=== PATIENT | male | born 1950 | race American Indian/Alaskan Native ===

== ENCOUNTER 2020-09-06 08:29 | Emergency (ER) | payer OTHER, MEDICARE ==
[2020-09-06 08:39] VITALS: BP 149/79
--- NOTE | 2020-09-06 08:48 | Emergency Department Report ---
<STEPHANIE SRIVASTAVA - Last Filed: 09/06/20 08:44> ED Extremity Problem HPI - General Chief complaint: Extremity Injury, Lower Stated complaint: LEFT FOOT INFECTION Source: patient Mode of arrival: Ambulatory Limitations: No Limitations - History of Present Illness Initial comments: 70-year-old -Gabonese male presents to the emergency room for 6-month history of left foot pain that started about 2 weeks ago when it has gotten worse. Patient states that the pain is worse when he lays on his stomach and his anterior front of his feet are pressed into the bed. Patient states what makes it better if he sits up with his feet flat. Patient is concerned that his nails on his toes are getting thick and aren't growing. Patient reports he does have a primary care provider but is now in [place] and [place]. Patient denies any recent trauma. Patient reports no history of diabetes but does have high blood pressure. Patient reports has been taken ibuprofen 600 mg about 3 times a day. Onset/Timin -: month(s) Location: left, lower extremity (foot) History of Same: No -: Yes arthralgia Severity scale (0 -10): 8 Quality: sharp Consistency: intermittent Improves with: nothing Worsens with: other (lying on his stomach) Associated Symptoms: denies other symptoms - Related Data Allergies Allergy/AdvReac Type Severity Reaction Status Date / Time No Known Allergies Allergy Unverified 09/06/20 08:36 ED Review of Systems Comment: All other systems reviewed and negative ED Past Medical Hx - Past Medical History Hx Hypertension: Yes - Surgical History Past Surgical History?: No - Social History Smoking Status: Never Smoker Substance Use Type: None ED Physical Exam - General Limitations: No Limitations General appearance: alert, in no apparent distress - Head Head exam: Present: atraumatic, normocephalic - Eye Eye exam: Present: normal appearance - ENT ENT exam: Present: mucous membranes moist - Neck Neck exam: Present: full ROM - Respiratory Respiratory exam: Absent: accessory muscle use - Cardiovascular Cardiovascular Exam: Present: regular rate, normal rhythm. Absent: systolic murmur, diastolic murmur, rubs, gallop - Neurological Exam Neurological exam: Present: alert, oriented X3 ED Medical Decision Making - Medical Decision Making 70-year-old -Gabonese male presents to the emergency room for 6-month history of left foot pain that started about 2 weeks ago when it has gotten worse. Patient states that the pain is worse when he lays on his stomach and his anterior front of his feet are pressed into the bed. Patient states what makes it better if he sits up with his feet flat. Patient is concerned that his nails on his toes are getting thick and aren't growing. Patient reports he does have a primary care provider but is now in [place] and he is moved [place] out south. Patient denies any recent trauma. Patient reports no history of diabetes but does have high blood pressure. Patient reports has been taken ibuprofen 600 mg about 3 times a day. ED Disposition Clinical Impression: Chronic toe pain, left foot, Onychomycosis, Lower extremity arterial insufficiency, severe, left High blood pressure Qualifiers: Hypertension type: essential hypertension Qualified Code(s): I10 - Essential (primary) hypertension Disposition: TO HOME OR SELFCARE Is pt being admited?: No Does the pt Need Aspirin: No Condition: Stable Instructions: Fungal Nail Infection, Hypertension (ED), Peripheral Vascular Disease Additional Instructions: See Dr. Joe Bautista in his office tomorrow. See referral. It is essential that you do so due to very poor circulation in your left foot. Return to the emergency department any acute change or problem. Referrals: JOE CASANOVA MD [Staff Physician] - 3-5 Days ANTHONY CHOI DPM [Staff Physician] - 3-5 Days JEO BAUTISTA MD [Staff Physician] - 24 Hours <LISSETH GOULD - Last Filed: 09/06/20 12:13> ED Extremity Problem HPI - History of Present Illness Initial comments: I have seen and examined this patient. Apparently he has had by bypass surgery of both legs with scars in his mid thigh area bilaterally. He states this operation was in 2013 for "my cholesterol". Apparently the operation was performed at [facility] [place]. After much questioning, the patient finally told me that he does not follow-up with a primary care provider that he used to have in the [facility] [place] area nor with his vascular surgeon. He presents with obviously extremely chronic onychomycosis of his toes. He states he has radi ating pain to his left great toe. He is medically extremely dalia and a poor historian as well as probably noncompliant. He states that he takes a little pill for his blood pressure it sounds like when he thinks he needs it. The patient does not describe symptoms consistent with claudication. ED Review of Systems ROS: Stated complaint: LEFT FOOT INFECTION Other details as noted in HPI ED Physical Exam - General General appearance: alert, in no apparent distress - Head Head exam: Present: atraumatic, normocephalic - Eye Eye exam: Present: normal appearance - ENT ENT exam: Present: mucous membranes moist - Neck Neck exam: Present: normal inspection - Respiratory Respiratory exam: Present: normal lung sounds bilaterally. Absent: respiratory distress - Cardiovascular Cardiovascular Exam: Present: regular rate, normal rhythm. Absent: systolic murmur, diastolic murmur, rubs, gallop - GI/Abdominal GI/Abdominal exam: Present: soft, normal bowel sounds. Absent: distended, tenderness, guarding, rebound - Rectal Rectal exam: Present: deferred - Extremities Exam Extremities exam: Absent: calf tenderness - Back Exam Back exam: Present: normal inspection - Neurological Exam Neurological exam: Present: alert, oriented X3, CN II-XII intact. Absent: motor sensory deficit - Psychiatric Psychiatric exam: Present: normal affect, normal mood - Skin Skin exam: Present: warm, dry, intact, normal color. Absent: rash - Other Other exam information: A hand-held Doppler exam was attempted. Our machine is not working properly. The patient has poor if any peripheral pulses of either foot. Both feet are cool without a differential temperature left compared with right. The left foot perhaps has slight rubor compared to the right. It is not cyanotic. There are no gangrenous toes. Initially the skin exam shows extensive onychomycosis particularly of the left great toe which appears to be a principal reason why the patient has presented to the emergency department. ED Course Vital Signs 09/06/20 08:37 Temperature 97.9 F Pulse Rate 96 H Respiratory 16 Rate Blood Pressure 149/79 O2 Sat by Pulse 99 Oximetry - Reevaluation(s) Reevaluation #1: This is a poorly compliant and medically dalia individual that has a little concept of medical follow-up. I do not believe he has an acute vascular emergency. However, he is status post vascular surgery on both of his legs. I do believe that he has ongoing substantial peripheral vascular disease. I am going to get basic blood work and proceed with an arterial Doppler. I would anticipate that the patient would be appropriate for outpatient referral unless something is indicative to the contrary. 09/06/20 09:49 Reevaluation #2: Discussed with Dr. Bautista. Reviewed the Doppler exam. States that this is chronic disease. Recommends that the patient come to the office tomorrow for evaluation. Patient will be informed and given the name of a shoe handler as well. 09/06/20 11:54 ED Medical Decision Making - Lab Data Result diagrams: 09/06/20 09:45 09/06/20 09:45 - Radiology Data Radiology results: report reviewed RIGHT: There is extensive atherosclerotic plaque noted. Common Femoral Artery: PSV 40 cm/sec. Monophasic waveform. Proximal SFA: PSV 54 cm/sec. Monophasic waveform. Mid SFA: Appears occluded. No flow is seen.. Distal SFA: PSV 10 cm/sec. Monophasic waveform. Popliteal artery: PSV 19 cm/sec. Monophasic waveform. Posterior tibial artery: PSV 15 cm/sec. Monophasic waveform. Dorsalis Pedis Artery: PSV 4 cm/sec. Triphasic waveform. LEFT: Common Femoral Artery: PSV 35 cm/sec. Monophasic waveform. Proximal SFA: PSV 48 cm/sec. Monophasic waveform. Mid SFA: Appears occluded, no flow is seen. Distal SFA: Appears occluded, no flow is seen. Popliteal artery: PSV 20 cm/sec. Monophasic waveform. Posterior tibial artery: PSV 8 cm/sec. Monophasic waveform. Dorsalis Pedis Artery: PSV 6 cm/sec. Monophasic waveform. IMPRESSION: 1. There is monophasic flow with decreased velocity in the common femoral and proximal superficial femoral arteries bilaterally. This is indicative of aortoiliac disease. No flow is identified in the distal left external iliac artery. 2. No flow is seen in the mid right superficial femoral artery and in the mid and distal left superficial femoral artery indicative of occlusions or near occlusion. There is limited flow in the popliteal artery and runoff vessels bilaterally. Critical care attestation.: If time is entered above; I have spent that time in minutes in the direct care of this critically ill patient, excluding procedure time. ED Disposition Is pt being admited?: No Does the pt Need Aspirin: No Time of Disposition: 12:13
[2020-09-06 10:05] LABS: Hematocrit 35.3 % (35.5-45.6); Hemoglobin 11.8 gm/dl (11.8-15.2); Mean Corpuscular HGB Conc 34 % (32-34); Mean Corpuscular Volume 76 fl (84-94); Platelet Count 281 K/mm3 (140-440); Red Blood Count 4.64 M/mm3 (3.65-5.03); Red Cell Distribution Width 15.2 % (13.2-15.2)
[2020-09-06 10:53] LABS: BUN/Creatinine Ratio 17; Blood Urea Nitrogen 17 mg/dL (9-20); Calcium 9.5 mg/dL (8.4-10.2); Hemolysis Index 6
[2020-09-06 10:54] LABS: Hypochromasia 1+; Platelet Estimate Consistent w Auto; Total Cells Counted 100
--- NOTE | 2020-09-06 11:12 | Vascular Lab Report ---
DUPLEX DOPPLER LOWER EXTREMITY ARTERIAL, BILATERAL INDICATION: lt.foot pain/cold. TECHNIQUE: Arterial duplex examination of both lower extremities performed using B-mode, color flow and spectral Doppler assessment. FINDINGS: RIGHT: There is extensive atherosclerotic plaque noted. Common Femoral Artery: PSV 40 cm/sec. Monophasic waveform. Proximal SFA: PSV 54 cm/sec. Monophasic waveform. Mid SFA: Appears occluded. No flow is seen.. Distal SFA: PSV 10 cm/sec. Monophasic waveform. Popliteal artery: PSV 19 cm/sec. Monophasic waveform. Posterior tibial artery: PSV 15 cm/sec. Monophasic waveform. Dorsalis Pedis Artery: PSV 4 cm/sec. Triphasic waveform. LEFT: Common Femoral Artery: PSV 35 cm/sec. Monophasic waveform. Proximal SFA: PSV 48 cm/sec. Monophasic waveform. Mid SFA: Appears occluded, no flow is seen. Distal SFA: Appears occluded, no flow is seen. Popliteal artery: PSV 20 cm/sec. Monophasic waveform. Posterior tibial artery: PSV 8 cm/sec. Monophasic waveform. Dorsalis Pedis Artery: PSV 6 cm/sec. Monophasic waveform. IMPRESSION: 1. There is monophasic flow with decreased velocity in the common femoral and proximal superficial fe moral arteries bilaterally. This is indicative of aortoiliac disease. No flow is identified in the di stal left external iliac artery. 2. No flow is seen in the mid right superficial femoral artery and in the mid and distal left superfi cial femoral artery indicative of occlusions or near occlusion. There is limited flow in the poplitea l artery and runoff vessels bilaterally. Note: Results of this examination were relayed to Dr. Bhatia by the technologist at 1021 hours eastern time. Ankle-Brachial Index (LINDY): * Calcified arteries > 1.4 * Normal = 0.9-1.4 * Mild PAD = 0.7-0.89 * Moderate PAD = 0.51-0.69 * Severe PAD < 0.5 Doppler Waveform: * Triphasic is normal. * Biphasic is abnormal if clear transition from triphasic signal along vascular tree. * Monophasic is abnormal. Signer Name: Amaury Gutierres MD Signed: 09/06/2020 11:07 AM Workstation Name: [employer]
== END 2020-09-06 12:27 | disposition home or self-care (01) ==
LOC: ED 08:29
DX: I73.9 Peripheral vascular disease, unspecified (principal); M25.572 Pain in left ankle and joints of left foot; I10 Essential (primary) hypertension; G89.29 Other chronic pain; M79.675 Pain in left toe(s); B35.1 Tinea unguium
CPT/HCPCS: 36415; 80048; 85007; 85025; 93925

== ENCOUNTER 2020-10-15 09:28 | Inpatient (IN) | payer OTHER, MEDICARE ==
[2020-10-15] MEDS ORDERED: ASPIRIN 300 MG RECT SUPP PR ONE (09:35)
[2020-10-15] MEDS ORDERED: HEPARIN 10,000 UNITS/10 ML VIAL IV ONE (09:35)
[2020-10-15] MEDS ORDERED: ATROPINE 0.1% (1 MG/10 ML) CARDIAC SYRINGE ONE (09:46)
[2020-10-15] MEDS ORDERED: SODIUM CHLORIDE 0.9% 1000 ML 1,000 ML IV ONE (09:48)
[2020-10-15] MEDS ORDERED: NITROGLYCERIN SYRINGE 0 ML ONE (09:48)
[2020-10-15] MEDS ORDERED: MIDAZOLAM 2 MG/2 ML INJ ONE (09:48)
[2020-10-15] MEDS ORDERED: HEPARIN 10,000 UNITS/10 ML VIAL ONE (09:48)
[2020-10-15] MEDS ORDERED: LIDOCAINE (2%) 20 MG/1 ML VIAL 20 ML MDV INFILTRATI ONE ×2 (09:48→11:16)
[2020-10-15] MEDS ORDERED: HEPARIN/NS 5000 UNIT/500ML 0 ML IR ONE (09:48)
[2020-10-15] MEDS ORDERED: VERAPAMIL 5 MG/2 ML INJ ONE (09:48)
[2020-10-15] MEDS ORDERED: fentaNYL 100 MCG/2 ML INJ ONE (09:48)
[2020-10-15] MEDS ORDERED: SODIUM CHLORIDE 0.9% 500 ML 500 ML ONE (09:49)
[2020-10-15] MEDS ORDERED: SODIUM CHLORIDE 0.9% 1000 ML 1,000 ML ONE (09:49)
[2020-10-15 09:53] LABS: Basophils # (Auto) 0.1 K/mm3 (0.0-0.1); Basophils % (Auto) 1.1 % (0.0-1.8); Eosinophils # (Auto) 0.1 K/mm3 (0.0-0.4); Hematocrit 29.7 % (35.5-45.6); Hemoglobin 10.1 gm/dl (11.8-15.2); Lymphocytes # (Auto) 1.5 K/mm3 (1.2-5.4); Lymphocytes % (Auto) 24.2 % (13.4-35.0); Mean Corpuscular HGB Conc 34 % (32-34); Mean Corpuscular Volume 75 fl (84-94); Monocytes # (Auto) 0.8 K/mm3 (0.0-0.8); Monocytes % (Auto) 13.4 % (0.0-7.3); Platelet Count 455 K/mm3 (140-440); Red Blood Count 3.97 M/mm3 (3.65-5.03)
--- NOTE | 2020-10-15 09:53 | Emergency Department Report ---
HPI - General Time Seen by Provider: 10/15/20 09:34 - HPI HPI: Room 23 The patient is a 70-year-old male present with a chief complaint of chest pain. EMS was called to the home for chest pain. EMS states upon arrival the patient was found to be lethargic but continues to complain of foot pain and chest pain. EMS states the patient was found to be hypotensive and bradycardic and was subsequently paced after administering Versed 5 mg IV and 1 mg of atropine. The patient is lethargic in the ED and is not able to provide a history ED Past Medical Hx - Past Medical History Hx Hypertension: Yes Hx of Cancer: Yes (Lung CA) - Surgical History Additional Surgical History: Unknown - Family History Family history: no significant - Social History Smoking Status: Never Smoker Substance Use Type: None ED Review of Systems ROS: Stated complaint: STEMI Other details as noted in HPI Comment: Unobtainable due to pts medical conditions Physical Exam - Physical Exam Physical Exam: GENERAL: The patient is well-developed well-nourished male lying on stretcher lethargic. [] HEENT: Normocephalic. Atraumatic. NECK: Supple. Trachea midline CHEST/LUNGS: Clear to auscultation. There is no respiratory distress noted. HEART/CARDIOVASCULAR: Regular. There is no tachycardia. There is no gallop rub or murmur. ABDOMEN: Abdomen is soft, nontender. Patient has normal bowel sounds. There is no abdominal distention. SKIN: There is no rash. There is no edema. There is no diaphoresis. NEURO: The patient is lethargic but eventually responds after tactile stimuli. MUSCULOSKELETAL: There is no evidence of acute injury. ED Course - Consultations Consultation #1: 10/15/20 09:12 Prehospital EKG sent to shoe treer Dr. Owens and code STEMI called ED Medical Decision Making - EKG Data -: EKG Interpreted by Me EKG shows normal: sinus rhythm Rate: normal - EKG Data When compared to previous EKG there are: previous EKG unavailable Interpretation: acute MA - Differential Diagnosis STEMI Critical care attestation.: If time is entered above; I have spent that time in minutes in the direct care of this critically ill patient, excluding procedure time. ED Disposition Clinical Impression: STEMI (ST elevation myocardial infarction), Acute chest pain Disposition: OP ADMIT IP TO THIS HOSP Is pt being admited?: Yes Does the pt Need Aspirin: Yes Condition: Serious Instructions: Chest Pain (ED) Time of Disposition: 09:54 (To Human Resource Officer)
[2020-10-15] MEDS ORDERED: HEPARIN/ 0.45% NACL DRIP 25,000 UNIT/500 ML BAG IV SCH (10:00)
[2020-10-15 10:07] LABS: Creatine Kinase MB 4.2 ng/mL (0.0-4.0)
[2020-10-15 10:08] LABS: BUN/Creatinine Ratio 19; Blood Urea Nitrogen 23 mg/dL (9-20); Calcium 8.7 mg/dL (8.4-10.2); Hemolysis Index 0
[2020-10-15 10:16] LABS: INR 1.09 (0.87-1.13); Partial Thromboplastin Time 28.6 Sec. (24.2-36.6)
[2020-10-15] MEDS ORDERED: ALUM-MAG HYDROXIDE-SIMETHICONE 200-200-20MG/5ML ORAL LIQD 30 ML ONE (10:43)
[2020-10-15] MEDS ORDERED: TICAGRELOR 90 MG TAB ONE (10:43)
[2020-10-15] MEDS ORDERED: HYDROcodone/ACETAMINOPHEN 5-325 MG TAB PO PRN (10:58)
[2020-10-15] MEDS ORDERED: HEPARIN 5,000 UNIT/1 ML VIAL SUB-Q ONE (11:03)
[2020-10-15] MEDS ORDERED: POTASSIUM CHLORIDE ER 20 MEQ TAB PO ONE (11:07)
[2020-10-15] MEDS ORDERED: PANTOPRAZOLE 40 MG TAB PO ONE (11:15)
--- NOTE | 2020-10-15 11:15 | Consultation ---
History of Present Illness Consult date: 10/15/20 Requesting physician: DAQUAN CASANOVA Consult reason: chest pain History of present illness: Patient is a 70-year-old with a history of lung cancer who presented via EMS with hypotension and chest pain. Unfortunately patient has received 4 mg of Versed in route and unable to give proper history. Complaining of chest pain. Reports no prior cardiac history. Reports no prior surgeries. However femoral scar suggestive of vascular surgery noted. Patient also has a history of lung cancer status is unknown but reports he is no longer on chemotherapy. EKG on arrival showed acute inferior ST elevation TN with reciprocal changes and atrial bigeminy. While patient was being placed on Skinning Machine Feeder table patient went into V. fib and had to be cardioverted. Left heart catheter revealed severe left main and right coronary artery 100% stenosis. Patient underwent successful PCI of the right coronary artery with drug-eluting stent. Post PCI patient is doing well. Admitted for further work-up Past History Past Medical History: other (Lung cancer) Social history: smoking (Personal history of tobacco abuse) Family history: other (Could not be obtained) Medications and Allergies Allergies Allergy/AdvReac Type Severity Reaction Status Date / Time No Known Allergies Allergy Verified 10/15/20 09:38 Active Meds: Active Medications Hydrocodone Bitart/Acetaminophen (Hydrocodone/Acetaminophen 5-325 Mg Tab) 1 each PO Q6H PRN PRN Reason: Pain, Moderate (4-6) Aspirin (Aspirin 81 Mg Tab Chew) 81 mg PO QDAY GEOVANNI Atorvastatin Calcium (Atorvastatin 40 Mg Tab) 80 mg PO QHS GEOVANNI Clopidogrel Bisulfate (Clopidogrel 75 Mg Tab) 75 mg PO QHS GEOVANNI Heparin Sodium (Porcine) (Heparin 5,000 Unit/1 Ml Vial) 5,000 unit SUB-Q TID ONE Stop: 10/15/20 11:04 Heparin Sodium/Sodium Chloride (Heparin/ 0.45% Nacl-25,000 Unit/500 Ml) 25,000 unit in 500 mls @ 23 mls/hr IV TITR GEOVANNI; Protocol Sodium Chloride (Nacl 0.9% 1000 Ml) 1,000 mls @ 150 mls/hr IV DIRECT GEOVANNI Potassium Chloride (Potassium Chloride Er 20 Meq Tab) 40 meq PO ONCE ONE Stop: 10/15/20 11:08 Review of Systems ROS unobtainable: due to mental status All systems: negative Physical Examination Vital Signs Pulse Resp BP Pulse Ox 64 16 106/55 100 10/15/20 09:28 10/15/20 09:28 10/15/20 09:28 10/15/20 09:28 Narrative exam: Thin built in moderate distress HEENT: Positive: Normocephaly Neck: Positive: trachea midline Cardiac: Positive: Reg Rate and Rhythm Lungs: Positive: clear to auscultation Neuro: Positive: Grossly Intact Abdomen: Positive: Unremarkable Extremities: Present: normal Results 10/15/20 09:38 10/15/20 09:38 Cardiac Enzymes 10/15/20 Range/Units 09:38 CK-MB (CK-2) 4.2 H (0.0-4.0) ng/mL Coagulation 10/15/20 Range/Units 09:38 PT 14.0 (12.2-14.9) Sec. INR 1.09 (0.87-1.13) APTT 28.6 (24.2-36.6) Sec. CBC 10/15/20 Range/Units 09:38 WBC 6.0 (4.5-11.0) K/mm3 RBC 3.97 (3.65-5.03) M/mm3 Hgb 10.1 L (11.8-15.2) gm/dl Hct 29.7 L (35.5-45.6) % Plt Count 455 H (140-440) K/mm3 Lymph # (Auto) 1.5 (1.2-5.4) K/mm3 Nicholas # (Auto) 0.8 (0.0-0.8) K/mm3 Eos # (Auto) 0.1 (0.0-0.4) K/mm3 Baso # (Auto) 0.1 (0.0-0.1) K/mm3 Comprehensive Metabolic Panel 10/15/20 Range/Units 09:38 Sodium 132 L (137-145) mmol/L Potassium 3.3 L (3.6-5.0) mmol/L Chloride 96.0 L (98-107) mmol/L Carbon Dioxide 20 L (22-30) mmol/L BUN 23 H (9-20) mg/dL Creatinine 1.2 (0.8-1.3) mg/dL Glucose 105 H (75-100) mg/dL Calcium 8.7 (8.4-10.2) mg/dL EKG interpretations - Telemetry EKG Rhythm: Sinus Bradycardia (Acute inferior ST elevation TN with atrial bigeminy presentation) Assessment and Plan Impression: Acute inferior ST elevation TN Status post primary PCI of 100% occlusion of the calcified right coronary artery Significant left main stenosis Cardiogenic shock on presentation V. fib in the setting of ST elevation TN status post successful cardioversion no recurrence History of lung cancer status unclear at this point Hypokalemia History of tobacco abuse Peripheral vascular disease Plan: Aspirin/Plavix/statins No beta-blockers for now given cardiogenic shock and bradycardia Routine pharmacotherapy post PCI Patient has significant calcified distal left main disease. However patient is not a surgical candidate. Patient will most likely will need a left main stent at a tertiary facility. However will need oncology consult as to the prognosis of his lung cancer. If his life expectancy is less than 1 year then will pursue medical therapy
[2020-10-15] MEDS ORDERED: HEPARIN/NS 5000 UNIT/500ML 1,000 ML IR ONE (11:16)
[2020-10-15] MEDS ORDERED: MORPHINE 2 MG/1 ML INJ IV PRN (11:54)
[2020-10-15] MEDS ORDERED: ZOLPIDEM 5 MG TAB PO PRN (11:54)
--- NOTE | 2020-10-15 12:00 | History and Physical Report ---
History of Present Illness Date of examination: 10/15/20 Date of admission: 10/15/2020 Chief complaint: Chest pain ST elevation SC History of present illness: 70-year-old male with a past history of lung cancer presented with chest pain found to be hypotensive and bradycardic requiring pacing. Shortly after patient developed an episode of ventricular fibrillation requiring cardioversion. Subsequent work-up patient had EKG which showed anterior/inferior ST elevation. Patient was then admitted to [facility] in which he underwent stenting and left main as well as right MCA had 100% stenosis. At present patient denies any chest pain. Patient also denies that he has had a heart attack at this time stated he did not know it. Patient has underlying psychological issue very difficult to tell at this particular time. Patient does state that he has had lung cancer but stated was a long ago and he does not remember. Patient states his primary care physician is in [place]. Patient states he [place] around the [place] and did not lock his door and he needs to go home. Reinform patient he had myocardial infarction and he needs further work-up to make sure his heart is doing well prior to discharge. Patient not said understanding. At present only complaint is decreased frequency at times patient does not want cardiac catheterization. After PCI today patient is chest pain-free resting comfortably in ICU no new concerns. Patient has been very anxious agitated Past History Past Medical History: other (Lung cancer) Social history: smoking (Personal history of tobacco abuse) Family history: other (Could not be obtained) Medications and Allergies Allergies Allergy/AdvReac Type Severity Reaction Status Date / Time No Known Allergies Allergy Verified 10/15/20 09:38 Active Meds: Active Medications Hydrocodone Bitart/Acetaminophen (Hydrocodone/Acetaminophen 5-325 Mg Tab) 1 each PO Q6H PRN PRN Reason: Pain, Moderate (4-6) Aspirin (Aspirin 81 Mg Tab Chew) 81 mg PO QDAY GEOVANNI Atorvastatin Calcium (Atorvastatin 40 Mg Tab) 80 mg PO QHS GEOVANNI Clopidogrel Bisulfate (Clopidogrel 75 Mg Tab) 75 mg PO QHS GEOVANNI Heparin Sodium/Sodium Chloride (Heparin/ 0.45% Nacl-25,000 Unit/500 Ml) 25,000 unit in 500 mls @ 23 mls/hr IV TITR GEOVANNI; Protocol Sodium Chloride (Nacl 0.9% 1000 Ml) 1,000 mls @ 150 mls/hr IV DIRECT GEOVANNI Review of Systems Constitutional: no weight loss, no fever, no chills, no weakness, no poor appetite, no chronic pain Ears, nose, mouth and throat: no ear pain, no nasal congestion, no dysphagia, no sore throat Cardiovascular: chest pain, palpitations, shortness of breath, dyspnea on exertion, no orthopnea, no edema, no lightheadedness, no paroxysmal nocturnal dyspnea, no claudication, no phlebitis, no high blood pressure, no leg edema Respiratory: cough, shortness of breath, no cough with sputum, no excessive sputum, no hemoptysis, no dyspnea on exertion, no congestion, no wheezing, no pain, no pain on inspiration, no sleep apnea, no respiratory infections, no home oxygen Gastrointestinal: no nausea, no vomiting, no constipation, no coffee ground emesis, no loss of appetite, no heartburn, no indigestion, no excessive gas, no early satiety Genitourinary Male: no flank pain, no nocturia Musculoskeletal: no shooting arm pain, no arm numbness/tingling, no low back pa in, no hot joints, no muscle weakness, no loss of height, no prior amputations Exam - Constitutional Vitals: Temp Pulse Resp BP Pulse Ox 62 16 96/76 98 10/15/20 09:53 10/15/20 09:28 10/15/20 09:53 10/15/20 09:53 General appearance: Present: no acute distress, well-nourished - EENT Eyes: Present: PERRL ENT: hearing intact, clear oral mucosa - Neck Neck: Present: supple, normal ROM - Respiratory Respiratory effort: normal Respiratory: bilateral: CTA - Cardiovascular Heart Sounds: Present: S1 & S2. Absent: rub, click - Extremities Extremities: pulses symmetrical, No edema Peripheral Pulses: within normal limits - Abdominal General gastrointestinal: Present: soft, non-tender, non-distended, normal bowel sounds Male genitourinary: Present: normal - Integumentary Integumentary: Present: clear, warm, dry - Musculoskeletal Musculoskeletal: gait normal, strength equal bilaterally - Psychiatric Psychiatric: appropriate mood/affect, intact judgment & insight - Neurologic Neurologic: CNII-XII intact, moves all extremities HEART Score - HEART Score Troponin: Troponin T < 0.010 ng/mL (0.00-0.029) 03/14/21 09:38 Results - Labs CBC & Chem 7: 10/15/20 09:38 10/15/20 09:38 Labs: Abnormal lab results 10/15/20 10/15/20 Range/Units 09:38 09:38 Hgb 10.1 L (11.8-15.2) gm/dl Hct 29.7 L (35.5-45.6) % MCV 75 L (84-94) fl MCH 25 L (28-32) pg Plt Count 455 H (140-440) K/mm3 [place] % (Auto) 13.4 H (0.0-7.3) % Sodium 132 L (137-145) mmol/L Potassium 3.3 L (3.6-5.0) mmol/L Chloride 96.0 L (98-107) mmol/L Carbon Dioxide 20 L (22-30) mmol/L BUN 23 H (9-20) mg/dL Glucose 105 H (75-100) mg/dL Total Creatine Kinase 265 H (55-170) units/L CK-MB (CK-2) 4.2 H (0.0-4.0) ng/mL - Imaging and Cardiology EKG: report reviewed, image reviewed CT scan - chest: report reviewed, image reviewed Assessment and Plan - Patient Problems (1) Acute chest pain Current Visit: Yes Status: Acute Plan to address problem: Patient status post acute ST elevation SC. Beta-annalisa held this time secondary to bradycardia hypotension. Patient required cardioversion Patient status pos ICU observation after PCI. Continue supportive care. Antiplatelet antilipid therapy. Did appreciate the need for 1 year assessment via hematology oncology to assist with management needs for coronary artery disease. Patient does not aware of his physician stated he has had lung cancer in the past and is no longer required treatment. Problematic is that patient is a poor historian will attempt to call family. And see if they can shed some light into patient's past cancer history. (2) STEMI (ST elevation myocardial infarction) Current Visit: Yes Status: Acute (3) Ventricular fibrillation Current Visit: Yes Status: Acute Plan to address problem: Resolved. (4) Peripheral vascular disease due to secondary diabetes Current Visit: Yes Status: Acute (5) Peripheral vascular disease Current Visit: Yes Status: Acute Plan to address problem: Antiplatelet. Patient was on Plavix as well. (6) Tobacco use Current Visit: Yes Status: Acute Plan to address problem: Patient states he is not smoking.
[2020-10-15] MEDS: LORazepam 2 MG/ML VIAL IV PRN ×2 (16:35→21:09)
[2020-10-15] MEDS: DOCUSATE SODIUM 100 MG CAP PO SCH ×2 (16:36→22:29)
[2020-10-15] MEDS: HALOPERIDOL LACTATE 5 MG/1 ML INJ IV PRN (18:37)
[2020-10-15] MEDS ORDERED: POTASSIUM CHLORIDE ER 20 MEQ TAB PO NR (20:26)
[2020-10-15] MEDS: CLOPIDOGREL 75 MG TAB PO SCH (21:10)
[2020-10-15] MEDS: METOPROLOL TARTRATE 25 MG TAB PO SCH (23:06)
[2020-10-16] MEDS: HALOPERIDOL LACTATE 5 MG/1 ML INJ IV PRN ×2 (00:33→06:49)
[2020-10-16] MEDS ORDERED: hydrALAZINE 20 MG/1 ML INJ IV ONE (00:49)
[2020-10-16] MEDS: LORazepam 2 MG/ML VIAL IV PRN ×3 (01:33→11:45)
--- NOTE | 2020-10-16 04:07 | XRay Report ---
XR chest 1V ap INDICATION / CLINICAL INFORMATION: NSTEMI, post PCI. COMPARISON: None available. FINDINGS: SUPPORT DEVICES: Port terminates in the SVC.. HEART / MEDIASTINUM: Widening of the superior mediastinum with convex contour of the mediastinum. The right horizontal fissure is elevated. Mass effect on the right lateral aspect of the trachea just ab ove the linda. LUNGS / PLEURA: Lungs are clear. Costophrenic sulci are sharp. No pneumothorax. ADDITIONAL FINDINGS: No significant additional findings. IMPRESSION: 1. Nonspecific widening of the superior mediastinum which is thought to be related to an underlying m ass. Recommend CT of the chest with contrast. I informed the nurse taking care of the patient at 3:00 Signer Name: Terry Bauer MD Signed: 10/16/2020 4:03 AM Workstation Name: [id number]
[2020-10-16] MEDS: ONDANSETRON 4 MG/2 ML INJ IV PRN ×2 (04:20→17:00)
[2020-10-16 06:26] LABS: Basophils % (Auto) 0.2 % (0.0-1.8); Hematocrit 28.6 % (35.5-45.6); Hemoglobin 9.6 gm/dl (11.8-15.2); Lymphocytes # (Auto) 0.6 K/mm3 (1.2-5.4); Lymphocytes % (Auto) 5.6 % (13.4-35.0); Mean Corpuscular HGB Conc 34 % (32-34); Mean Corpuscular Volume 73 fl (84-94); Monocytes % (Auto) 9.9 % (0.0-7.3); Platelet Count 464 K/mm3 (140-440); Red Cell Distribution Width 14.7 % (13.2-15.2)
--- NOTE | 2020-10-16 09:17 | Progress Note ---
<NARENDRA ACOSTA - Last Filed: 10/16/20 12:14> Assessment and Plan Assessment and plan: STEMI -Presented hypotensive and bradycardic requiring pacing then developed ventricular fibrillation requiring cardioversion -ECG showed inferior/anterior ST elevation -Left heart cath revealed severe left main and right coronary artery 100% stenosis -S/p PCI with drug-eluting stent -Beta-annalisa, antiplatelet, antilipid therapy Ventricular fibrillation -Noted in the [facility] -S/p cardioversion Hyponatremia -Trend BMP Peripheral vascular disease -Statin therapy -Unknown possible surgical intervention Tobacco abuse -Tobacco cessation counseling DVT/GI prophylaxis -Protonix, SCDs to bilateral lower extremities while in bed History Interval history: This is a 70-year-old male with lung cancer and tobacco abuse who presented to the emergency department on 10/15 with complaints of chest pain. Upon presentation patient was hypotensive and bradycardic requiring pacing and short ly after developed ventricular fibrillation requiring cardioversion and further work-up showed anterior/inferior ST elevation [place]. Patient was found to have percent stenosis to right MCA and severe left main artery stenosis. Cardiology was consulted and patient underwent successful PCI to the right coronary artery with deployment of a MONA. 10/16: Overnight patient had a run of SVT for which the patient spontaneously reverted back to sinus rhythm and did not require intervention. This morning p atient is confused and intermittently following commands therefore a CT head will be obtained for further investigation. His confusion may be related to his hyponatremia. Possible transfer to floor once cleared by cardiology. STEMI Hyponatremia Hypokalemia Hypochloremia Metabolic acidosis Elevated troponin Lung cancer tobacco abuse Hospitalist Physical - Constitutional Vitals: Temp Pulse Resp BP Pulse Ox 98.2 F 89 15 164/77 100 10/16/20 08:00 10/16/20 09:00 10/16/20 09:00 10/16/20 09:00 10/16/20 09:00 General appearance: Present: no acute distress, well-nourished - EENT Eyes: Present: PERRL, EOM intact ENT: hearing intact, clear oral mucosa - Neck Neck: Present: normal ROM - Respiratory Respiratory effort: normal Respiratory: bilateral: CTA - Cardiovascular Rhythm: regular Heart Sounds: Present: S1 & S2. Absent: systolic murmur, diastolic murmur - Extremities Extremities: no ischemia, pulses intact, pulses symmetrical, No edema, normal temperature, normal color, Full ROM Peripheral Pulses: within normal limits - Abdominal General gastrointestinal: soft, non-tender, non-distended, normal bowel sounds - Integumentary Integumentary: Present: clear, warm, dry - Psychiatric Psychiatric: agitated - Neurologic Neurologic: CNII-XII intact, no focal deficits, moves all extremities - Allied Health Allied health notes reviewed: nursing HEART Score - HEART Score Troponin: Troponin T < 0.010 ng/mL (0.00-0.029) 10/15/20 09:38 Results - Labs CBC & Chem 7: 10/16/20 05:32 10/16/20 05:32 Labs: Laboratory Last Values WBC 10.4 K/mm3 (4.5-11.0) 10/16/20 05:32 RBC 3.90 M/mm3 (3.65-5.03) 10/16/20 05:32 Hgb 9.6 gm/dl (11.8-15.2) L 10/16/20 05:32 Hct 28.6 % (35.5-45.6) L 10/16/20 05:32 MCV 73 fl (84-94) L 10/16/20 05:32 MCH 25 pg (28-32) L 10/16/20 05:32 MCHC 34 % (32-34) 10/16/20 05:32 RDW 14.7 % (13.2-15.2) 10/16/20 05:32 Plt Count 464 K/mm3 (140-440) H 10/16/20 05:32 Lymph % (Auto) 5.6 % (13.4-35.0) L 10/16/20 05:32 [place] % (Auto) 9.9 % (0.0-7.3) H 10/16/20 05:32 Eos % (Auto) 0.0 % (0.0-4.3) 10/16/20 05:32 Baso % (Auto) 0.2 % (0.0-1.8) 10/16/20 05:32 Lymph # (Auto) 0.6 K/mm3 (1.2-5.4) L 10/16/20 05:32 [place] # (Auto) 1.0 K/mm3 (0.0-0.8) H 10/16/20 05:32 Eos # (Auto) 0.0 K/mm3 (0.0-0.4) 10/16/20 05:32 Baso # (Auto) 0.0 K/mm3 (0.0-0.1) 10/16/20 05:32 Seg Neutrophils % 84.3 % (40.0-70.0) H 10/16/20 05:32 Seg Neutrophils # 8.8 K/mm3 (1.8-7.7) H 10/16/20 05:32 PT 14.0 Sec. (12.2-14.9) 10/15/20 09:38 INR 1.09 (0.87-1.13) 10/15/20 09:38 APTT 28.6 Sec. (24.2-36.6) 10/15/20 09:38 Sodium 132 mmol/L (137-145) L 10/15/20 09:38 Potassium 3.3 mmol/L (3.6-5.0) L 10/15/20 09:38 Chloride 96.0 mmol/L (98-107) L 10/15/20 09:38 Carbon Dioxide 20 mmol/L (22-30) L 10/15/20 09:38 Anion Gap 19 mmol/L 10/15/20 09:38 BUN 23 mg/dL (9-20) H 10/15/20 09:38 Creatinine 1.2 mg/dL (0.8-1.3) 10/15/20 09:38 Estimated GFR > 60 ml/min 10/15/20 09:38 BUN/Creatinine Ratio 19 % 10/15/20 09:38 Glucose 105 mg/dL (75-100) H 10/15/20 09:38 Calcium 8.7 mg/dL (8.4-10.2) 10/15/20 09:38 Total Creatine Kinase 265 units/L (55-170) H 10/15/20 09:38 CK-MB (CK-2) 4.2 ng/mL (0.0-4.0) H 10/15/20 09:38 CK-MB (CK-2) Rel Index 1.5 (0-4) 10/15/20 09:38 Troponin T < 0.010 ng/mL (0.00-0.029) 10/15/20 09:38 NT-Pro-B Natriuret Pep 238.8 pg/mL (0-900) 10/15/20 09:38 Geiger/IV: Voiding Method Condom Catheter Active Medications - Current Medications Current Medications: Generic Name Dose Route Start Last Admin Trade Name Freq PRN Reason Stop Dose Admin Hydrocodone Bitart/Acetaminophen 1 each 10/15/20 10:58 Hydrocodone/Acetaminophen 5-325 Mg Tab PO Q6H PRN Pain, Moderate (4-6) Aspirin 81 mg 10/16/20 10:00 Aspirin 81 Mg Tab Chew PO QDAY GEOVANNI Atorvastatin Calcium 80 mg 10/15/20 22:00 10/15/20 21:10 Atorvastatin 40 Mg Tab PO 80 mg QHS GEOVANNI Administration Clopidogrel Bisulfate 75 mg 10/15/20 22:00 10/15/20 21:10 Clopidogrel 75 Mg Tab PO 75 mg QHS GEOVANNI Administration Docusate Sodium 100 mg 10/15/20 12:00 10/15/20 22:29 Docusate Sodium 100 Mg Cap PO Not Given BID GEOVANNI Haloperidol Lactate 5 mg 10/15/20 18:30 10/16/20 06:49 Haloperidol Lactate 5 Mg/1 Ml Inj IV 5 mg Q6H PRN Administration Agitation Sodium Chloride 1,000 mls @ 150 mls/hr 10/15/20 11:00 Nacl 0.9% 1000 Ml IV DIRECT GEOVANNI Lorazepam 1 mg 10/15/20 15:24 10/16/20 05:30 Lorazepam 2 Mg/Ml Vial IV 1 mg Q4H PRN Administration Seizures Metoprolol Tartrate 25 mg 10/15/20 23:00 10/15/20 23:06 Metoprolol Tartrate 25 Mg Tab PO 25 mg BID GEOVANNI Administration Morphine Sulfate 2 mg 10/15/20 11:54 10/16/20 00:33 Morphine 2 Mg/1 Ml Inj IV 2 mg Q4H PRN Administration Pain, Moderate (4-6) Ondansetron HCl 4 mg 10/15/20 11:54 10/16/20 04:20 Ondansetron 4 Mg/2 Ml Inj IV 4 mg Q8H PRN Administration Nausea And Vomiting Sodium Chloride 10 ml 10/15/20 12:00 10/15/20 22:29 Sodium Chloride 0.9% 10 Ml Flush Syringe IV 10 ml BID GEOVANNI Administration Sodium Chloride 10 ml 10/15/20 11:54 Sodium Chloride 0.9% 10 Ml Flush Syringe IV PRN PRN LINE FLUSH Zolpidem Tartrate 5 mg 10/15/20 11:54 10/15/20 21:10 Zolpidem 5 Mg Tab PO 5 mg QHS PRN Administration Sleeplessness Nutrition/Malnutrition Assess - Dietary Evaluation Nutrition/Malnutrition Findings: Nutrition Notes Start: 10/15/20 13:07 Freq: Status: Active Protocol: Document 10/16/20 08:29 CW (Rec: 10/16/20 08:44 CW [id number]) Nutrition Notes Need for Assessment generated from: MD Order,ornamenter,MST, Education Initial or Follow up Assessment Current Diagnosis Hypertension Other Pertinent Diagnosis Chest pain, STEMI, CA Current Diet NPO Labs/Tests Na 132 K 3.3 BUN 23 bp 148/76 Pertinent Medications Zofran Kdur Height 5 ft 11 in Weight 79.3 kg [place] Body Weight (kg) 78.18 BMI 24.3 Weight change and time frame 5% wt gain per last visit in chart ond 09/06/2020 Weight Status Appropriate Subjective/Other Information Consult for Diet education, MST, Poor Intake, Supplements, MST. Pt not likely appropriate for diet education d/t AMS. Wt has increased since last visit. Pt downgraded from cl liq to NPO. Burn Absent Trauma Absent GI Symptoms Nausea,Vomiting Current % PO Negligible Minimum of two criteria No physical signs of malnutrition #1 Nutrition Diagnosis Inadequate energy intake Etiology NPO at this time As Evidenced by Signs and Symptoms nausea and vomiting following clear liquid diet <DAQUAN CASANOVA - Last Filed: 10/16/20 18:51> Assessment and Plan Disposition Plan: Patient seen and examined with nurse practitioner agree with all noted abov - Patient Problems (1) Acute chest pain Current Visit: Yes Status: Acute (2) STEMI (ST elevation myocardial infarction) Current Visit: Yes Status: Acute (3) Ventricular fibrillation Current Visit: Yes Status: Acute (4) Peripheral vascular disease due to secondary diabetes Current Visit: Yes Status: Acute (5) Peripheral vascular disease Current Visit: Yes Status: Acute (6) Tobacco use Current Visit: Yes Status: Acute Hospitalist Physical - Constitutional Vitals: Temp Pulse Resp BP Pulse Ox 98.2 F 94 H 32 H 167/104 97 10/16/20 16:00 10/16/20 18:01 10/16/20 18:01 10/16/20 18:01 10/16/20 18:01 HEART Score - HEART Score Troponin: Troponin T 0.411 ng/mL (0.00-0.029) H* D 10/16/20 05:32 Results - Labs CBC & Chem 7: 10/16/20 05:32 10/16/20 05:32 Labs: Laboratory Last Values WBC 10.4 K/mm3 (4.5-11.0) 10/16/20 05:32 RBC 3.90 M/mm3 (3.65-5.03) 10/16/20 05:32 Hgb 9.6 gm/dl (11.8-15.2) L 10/16/20 05:32 Hct 28.6 % (35.5-45.6) L 10/16/20 05:32 MCV 73 fl (84-94) L 10/16/20 05:32 MCH 25 pg (28-32) L 10/16/20 05:32 MCHC 34 % (32-34) 10/16/20 05:32 RDW 14.7 % (13.2-15.2) 10/16/20 05:32 Plt Count 464 K/mm3 (140-440) H 10/16/20 05:32 Lymph % (Auto) 5.6 % (13.4-35.0) L 10/16/20 05:32 [place] % (Auto) 9.9 % (0.0-7.3) H 10/16/20 05:32 Eos % (Auto) 0.0 % (0.0-4.3) 10/16/20 05:32 Baso % (Auto) 0.2 % (0.0-1.8) 10/16/20 05:32 Lymph # (Auto) 0.6 K/mm3 (1.2-5.4) L 10/16/20 05:32 [place] # (Auto) 1.0 K/mm3 (0.0-0.8) H 10/16/20 05:32 Eos # (Auto) 0.0 K/mm3 (0.0-0.4) 10/16/20 05:32 Baso # (Auto) 0.0 K/mm3 (0.0-0.1) 10/16/20 05:32 Seg Neutrophils % 84.3 % (40.0-70.0) H 10/16/20 05:32 Seg Neutrophils # 8.8 K/mm3 (1.8-7.7) H 10/16/20 05:32 PT 14.0 Sec. (12.2-14.9) 10/15/20 09:38 INR 1.09 (0.87-1.13) 10/15/20 09:38 APTT 28.6 Sec. (24.2-36.6) 10/15/20 09:38 Sodium 129 mmol/L (137-145) L 10/16/20 05:32 Potassium 3.9 mmol/L (3.6-5.0) 10/16/20 05:32 Chloride 93.0 mmol/L (98-107) L 10/16/20 05:32 Carbon Dioxide 23 mmol/L (22-30) 10/16/20 05:32 Anion Gap 17 mmol/L 10/16/20 05:32 BUN 20 mg/dL (9-20) 10/16/20 05:32 Creatinine 1.1 mg/dL (0.8-1.3) 10/16/20 05:32 Estimated GFR > 60 ml/min 10/16/20 05:32 BUN/Creatinine Ratio 18 % 10/16/20 05:32 Glucose 118 mg/dL (75-100) H 10/16/20 05:32 Calcium 8.7 mg/dL (8.4-10.2) 10/16/20 05:32 Ammonia 30.0 umol/L (25-60) 10/16/20 13:15 Total Creatine Kinase 748 units/L (55-170) H 10/16/20 05:32 CK-MB (CK-2) 16.4 ng/mL (0.0-4.0) H 10/16/20 05:32 CK-MB (CK-2) Rel Index 2.1 (0-4) 10/16/20 05:32 Troponin T 0.411 ng/mL (0.00-0.029) H* D 10/16/20 05:32 NT-Pro-B Natriuret Pep 238.8 pg/mL (0-900) 10/15/20 09:38 Triglycerides 63 mg/dL (2-149) 10/16/20 05:32 Cholesterol 124 mg/dL (50-199) 10/16/20 05:32 LDL Cholesterol Direct 91 mg/dL (50-130) 10/16/20 05:32 HDL Cholesterol 27 mg/dL (40-59) L 10/16/20 05:32 Cholesterol/HDL Ratio 4.59 % 10/16/20 05:32 Coronavirus (PCR) Negative (Negative) 10/16/20 Unknown Geiger/IV: Voiding Method Condom Catheter Active Medications - Current Medications Current Medications: Generic Name Dose Route Start Last Admin Trade Name Freq PRN Reason Stop Dose Admin Hydrocodone Bitart/Acetaminophen 1 each 10/15/20 10:58 Hydrocodone/Acetaminophen 5-325 Mg Tab PO Q6H PRN Pain, Moderate (4-6) Aspirin 81 mg 10/16/20 10:00 10/16/20 10:00 Aspirin 81 Mg Tab Chew PO 81 mg QDAY GEOVANNI Administration Atorvastatin Calcium 80 mg 10/15/20 22:00 10/15/20 21:10 Atorvastatin 40 Mg Tab PO 80 mg QHS GEOVANNI Administration Clopidogrel Bisulfate 75 mg 10/15/20 22:00 10/15/20 21:10 Clopidogrel 75 Mg Tab PO 75 mg QHS GEOVANNI Administration Docusate Sodium 100 mg 10/15/20 12:00 10/16/20 13:37 Docusate Sodium 100 Mg Cap PO Not Given BID GEOVANNI Haloperidol Lactate 5 mg 10/15/20 18:30 10/16/20 06:49 Haloperidol Lactate 5 Mg/1 Ml Inj IV 5 mg Q6H PRN Administration Agitation Hydralazine HCl 10 mg 10/16/20 15:31 10/16/20 18:05 Hydralazine 20 Mg/1 Ml Inj IV 10 mg Q4HR PRN Administration Hypertension Sodium Chloride 1,000 mls @ 150 mls/hr 10/15/20 11:00 Nacl 0.9% 1000 Ml IV DIRECT GEOVANNI Isosorbide Mononitrate 30 mg 10/16/20 14:00 10/16/20 15:00 Isosorbide Mononitrate Er 30 Mg Tab PO 30 mg QDAY GEOVANNI Administration Lorazepam 1 mg 10/15/20 15:24 10/16/20 11:45 Lorazepam 2 Mg/Ml Vial IV 1 mg Q4H PRN Administration Seizures Melatonin 5 mg 10/16/20 12:44 Melatonin 5 Mg Tab PO QHS PRN Sleep Metoprolol Tartrate 50 mg 10/16/20 14:00 10/16/20 14:00 Metoprolol Tartrate 50 Mg Tab PO 50 mg Q8H GEOVANNI Administration Morphine Sulfate 2 mg 10/15/20 11:54 10/16/20 00:33 Morphine 2 Mg/1 Ml Inj IV 2 mg Q4H PRN Administration Pain, Moderate (4-6) Ondansetron HCl 4 mg 10/15/20 11:54 10/16/20 17:00 Ondansetron 4 Mg/2 Ml Inj IV 4 mg Q8H PRN Administration Nausea And Vomiting Sodium Chloride 10 ml 10/15/20 12:00 10/16/20 10:00 Sodium Chloride 0.9% 10 Ml Flush Syringe IV 10 ml BID GEOVANNI Administration Sodium Chloride 10 ml 10/15/20 11:54 Sodium Chloride 0.9% 10 Ml Flush Syringe IV PRN PRN LINE FLUSH Nutrition/Malnutrition Assess - Dietary Evaluation Nutrition/Malnutrition Findings: Nutrition Notes Start: 10/15/20 13:07 Freq: Status: Active Protocol: Document 10/16/20 08:29 CW (Rec: 10/16/20 08:44 CW [id number]) Nutrition Notes Need for Assessment generated from: MD Order,ornamenter,MST, Education Initial or Follow up Assessment Current Diagnosis Hypertension Other Pertinent Diagnosis Chest pain, STEMI, CA Current Diet NPO Labs/Tests Na 132 K 3.3 BUN 23 bp 148/76 Pertinent Medications Nickifran Anai Height 5 ft 11 in Weight 79.3 kg [place] Body Weight (kg) 78.18 BMI 24.3 Weight change and time frame 5% wt gain per last visit in chart ond 09/06/2020 Weight Status Appropriate Subjective/Other Information Consult for Diet education, MST, Poor Intake, Supplements, MST. Pt not appropriate for diet education d/t AMS. Pt dis not arouse to verbal stimuli upon attempt at evaluation. Wt has increased since last visit. Pt downgraded from cl liq to NPO. Percent of energy/protein needs met: 0%/0% Burn Absent Trauma Absent GI Symptoms Nausea,Vomiting Current % PO Negligible Minimum of two criteria No physical signs of malnutrition #1 Nutrition Diagnosis Inadequate energy intake Etiology NPO at this time As Evidenced by Signs and Symptoms nausea and vomiting following clear liquid diet Is patient on ventilator? No Is Patient Ambulatory and/or Out of Bed Yes [facility]) [ 2034.669 [id number]] Calculation Used for Recommendations [facility] Additional Notes protein needs: 79 - 95g (1 - 1 .2g/kgBW for advanced age) fluid needs: 1 ml/kcal Nutrition Intervention Change Diet Order: Diet advacement when medically feasible to cardiac diet Add Supplement/Snack (indicate name/kcal Ensure High Protein /protein ) Provides kCal: 160 Provides Protein (gm) 30 Teaching Recipient Patient Teaching Methods Discussion Barriers to Learning Cognitive/Verbal RD phone number provided No Patient aware of follow up options No Goal #1 Understand importance of following cardiac diet Goal #2 diet advancement Anticipated Discharge Needs: Unable to determine at this time Follow-Up By: 10/18/20 Additional Comments F/U diet advancement, ONS need , diet education
[2020-10-16] MEDS: METOPROLOL TARTRATE 25 MG TAB PO SCH (10:00)
[2020-10-16] MEDS: ASPIRIN 81 MG TAB CHEW PO SCH (10:00)
[2020-10-16 10:06] LABS: Creatine Kinase MB 16.4 ng/mL (0.0-4.0)
[2020-10-16 10:08] LABS: BUN/Creatinine Ratio 18; Blood Urea Nitrogen 20 mg/dL (9-20); Calcium 8.7 mg/dL (8.4-10.2); Hemolysis Index 0
[2020-10-16 10:34] LABS: Chol/HDL Ratio 4.59 %; HDL Cholesterol 27 mg/dL (40-59); LDL Cholesterol,Direct 91 mg/dL (50-130)
--- NOTE | 2020-10-16 12:16 | Cat Scan Report ---
CT BRAIN: 10/16/2020 INDICATION / CLINICAL INFORMATION: AMS. COMPARISON: None available. FINDINGS: BRAIN/INTRACRANIAL STRUCTURES: Unenhanced CT images of the brain demonstrate no evidence of acute int racranial abnormality. Ventricles and sulci are prominent in size, consistent with pronounced diffuse cerebral atrophy. Career Specialist tien white matter hypoattenuation is present. There is no CT evidence of acute large vessel territory ischemic injury, hemorrhage, or mass. There a re no abnormal extra-axial fluid collections. EXTRACRANIAL STRUCTURES: Unremarkable. IMPRESSION: No acute abnormality. All CT scans at this location are performed using dose reduction to ALARA by means of automated expos ure control. 10/16/2020 Signer Name: Mark Trujillo MD Signed: 10/16/2020 12:11 PM Workstation Name: [id number]
[2020-10-16] MEDS: DOCUSATE SODIUM 100 MG CAP PO SCH ×2 (13:37→21:15)
--- NOTE | 2020-10-16 13:39 | Progress Note ---
Assessment and Plan - Patient Problems (1) STEMI (ST elevation myocardial infarction) Current Visit: Yes Status: Acute Plan to address problem: Patient was successfully treated with primary angioplasty of the mid right coronary artery for acute inferior STEMI. He has a secondary lesion, a severe stenosis of the distal left main which will require further revascularization in the early outpatient setting, after he is optimal covered from the current infarct. (2) SVT (supraventricular tachycardia) Current Visit: Yes Status: Acute Plan to address problem: We will increase and optimize beta-annalisa therapy for paroxysmal supraventricular tachycardia. Subjective Date of service: 10/16/20 Interval history: Patient is comfortable in no acute distress, appears very drowsy, but able to follow commands and moves all 4 extremities. He is currently on two-point restraints, reportedly due to some confusion during the night. It will be recalled that he presented with an acute inferior wall STEMI, treated with primary angioplasty and stenting of a subtotaled mid right coronary artery. Cardiac catheterization also revealed the presence of an 85% distal left main stenosis. Overall left ventricular systolic function is well-preserved. Last evening, he was noted with transient, narrow complex tachycardia which appeared to be SVT. The tachycardia resolved spontaneously without treatment. ECG today shows normal sinus rhythm with complete resolution of his presenting ST segment elevation. Objective Vital Signs Temp Pulse Pulse Resp BP Pulse Ox 10/16/20 12:00 98.7 F 10/16/20 09:00 89 15 164/77 100 10/16/20 08:50 90 19 172/82 100 10/16/20 08:40 96 H 22 167/85 100 10/16/20 08:30 91 H 18 167/85 100 10/16/20 08:20 89 21 164/81 100 10/16/20 08:10 97 H 20 172/80 100 10/16/20 08:00 98.2 F 91 H 4 L 172/80 100 10/16/20 07:50 90 28 H 166/83 100 10/16/20 07:40 94 H 26 H 166/83 92 10/16/20 07:30 91 H 16 166/83 100 10/16/20 07:20 93 H 21 164/89 99 10/16/20 07:10 91 H 30 H 169/80 99 10/16/20 07:00 91 H 26 H 169/80 95 10/16/20 06:50 90 26 H 163/85 95 10/16/20 06:40 158/86 100 10/16/20 06:30 94 H 29 H 151/83 100 10/16/20 06:20 90 14 158/75 100 10/16/20 06:10 89 25 H 156/83 100 10/16/20 06:00 93 H 25 H 158/86 100 10/16/20 05:50 91 H 12 158/86 100 10/16/20 05:40 137/67 100 10/16/20 05:30 137/67 100 10/16/20 05:20 160/82 100 10/16/20 05:10 93 H 17 150/80 100 10/16/20 05:00 87 22 150/80 99 10/16/20 04:50 91 H 24 147/83 100 10/16/20 04:40 91 H 28 H 148/83 99 10/16/20 04:38 92 H 23 148/83 10/16/20 04:20 94 H 28 H 148/83 10/16/20 04:12 96 H 30 H 149/77 10/16/20 04:00 108 H 108 H 33 H 149/77 100 10/16/20 03:50 95 H 30 H 154/85 10/16/20 03:47 99.7 F H 10/16/20 03:40 96 H 23 151/95 10/16/20 03:30 98 H 21 151/95 10/16/20 03:20 94 H 27 H 137/75 10/16/20 03:10 92 H 25 H 155/75 10/16/20 03:00 94 H 16 155/75 10/16/20 02:50 97 H 22 153/69 10/16/20 02:40 103 H 25 H 137/70 10/16/20 02:30 100 H 24 137/70 10/16/20 02:20 102 H 26 H 139/77 10/16/20 02:10 110 H 31 H 144/72 10/16/20 02:00 102 H 26 H 144/72 10/16/20 01:50 100 H 29 H 132/55 10/16/20 01:40 98 H 36 H 112/82 10/16/20 01:30 184 H 32 H 148/76 10/16/20 01:20 105 H 19 148/76 10/16/20 01:10 95 H 20 152/81 10/16/20 01:00 92 H 25 H 152/81 10/16/20 00:56 98 H 171/90 10/16/20 00:50 91 H 22 171/90 10/16/20 00:40 102 H 18 170/92 10/16/20 00:33 28 H 10/16/20 00:30 95 H 33 H 170/92 10/16/20 00:20 111 H 43 H 172/101 89 10/16/20 00:10 93 H 31 H 162/80 10/16/20 00:02 100 H 37 H 176/85 10/16/20 00:00 102 H 93 H 25 H 161/83 100 10/15/20 23:50 106 H 25 H 161/83 10/15/20 23:40 96 H 24 10/15/20 23:39 95 H 22 10/15/20 23:28 98.8 F 10/15/20 23:20 95 H 31 H 181/84 10/15/20 23:10 98 H 12 175/109 10/15/20 23:06 102 H 175/109 10/15/20 23:00 102 H 20 175/109 10/15/20 22:50 102 H 19 165/118 10/15/20 22:40 101 H 29 H 162/82 10/15/20 22:30 92 H 18 162/82 10/15/20 22:20 103 H 27 H 169/83 10/15/20 22:10 93 H 26 H 171/78 10/15/20 22:00 108 H 25 H 171/78 10/15/20 21:50 102 H 19 162/85 10/15/20 21:40 101 H 12 163/87 10/15/20 21:30 98 H 17 163/87 10/15/20 21:20 99 H 15 156/90 10/15/20 21:10 99 H 21 164/83 10/15/20 21:00 105 H 32 H 164/83 10/15/20 20:50 103 H 30 H 136/91 10/15/20 20:40 103 H 36 H 136/91 99 10/15/20 20:30 110 H 22 136/91 98 10/15/20 20:20 106 H 29 H 136/91 99 10/15/20 20:10 106 H 19 156/90 90 10/15/20 20:00 97.8 F 112 H 105 H 20 156/90 100 10/15/20 19:50 108 H 21 157/76 10/15/20 19:40 109 H 28 H 165/79 10/15/20 19:30 117 H 38 H 158/79 95 10/15/20 19:20 110 H 32 H 158/79 100 10/15/20 19:10 105 H 33 H 168/76 10/15/20 19:00 95 H 21 168/76 99 10/15/20 18:50 102 H 26 H 185/69 10/15/20 18:40 103 H 37 H 185/69 100 10/15/20 18:30 92 H 24 185/69 10/15/20 18:22 185/69 10/15/20 18:13 148/86 92 10/15/20 18:00 148/86 81 L 10/15/20 17:50 105 H 33 H 162/72 10/15/20 17:40 88 29 H 162/72 10/15/20 17:30 94 H 33 H 162/72 95 10/15/20 17:20 99 H 24 152/67 73 L 10/15/20 17:10 89 28 H 152/67 98 10/15/20 17:00 97 H 17 139/79 87 10/15/20 16:52 100 10/15/20 16:50 89 27 H 139/79 87 10/15/20 16:40 89 24 167/90 99 10/15/20 16:30 100 H 26 H 159/68 98 10/15/20 16:20 95 H 19 159/68 100 10/15/20 16:10 107 H 24 176/83 99 10/15/20 16:00 92 H 15 176/83 100 10/15/20 15:50 90 14 162/86 100 10/15/20 15:40 99 H 22 156/84 99 10/15/20 15:30 92 H 14 156/84 100 10/15/20 15:20 144/80 99 10/15/20 15:10 104 H 21 151/52 100 10/15/20 15:00 100 H 13 131/74 100 10/15/20 14:50 95 H 16 138/83 100 10/15/20 14:40 97 H 13 138/83 96 10/15/20 14:30 106 H 10 L 144/98 100 10/15/20 14:20 106 H 24 144/98 88 10/15/20 14:10 93 H 15 156/96 10/15/20 14:00 103 H 145/82 99 10/15/20 13:50 93 H 15 145/82 100 10/15/20 13:40 103 H 16 145/82 98 - Physical Examination General: No Apparent Distress, Other (Drowsy and intermittent confusion) HEENT: Positive: Normocephaly Neck: Positive: trachea midline Cardiac: Positive: Reg Rate and Rhythm Lungs: Positive: Decreased Breath Sounds Neuro: Positive: Grossly Intact Abdomen: Positive: Unremarkable Skin: Positive: Clear Extremities: Absent: edema - Labs and Meds Cardiac Enzymes 10/16/20 Range/Units 05:32 CK-MB (CK-2) 16.4 H (0.0-4.0) ng/mL Lipids 10/16/20 Range/Units 05:32 Triglycerides 63 (2-149) mg/dL Cholesterol 124 (50-199) mg/dL HDL Cholesterol 27 L (40-59) mg/dL Cholesterol/HDL Ratio 4.59 % CBC 10/16/20 Range/Units 05:32 WBC 10.4 (4.5-11.0) K/mm3 RBC 3.90 (3.65-5.03) M/mm3 Hgb 9.6 L (11.8-15.2) gm/dl Hct 28.6 L (35.5-45.6) % Plt Count 464 H (140-440) K/mm3 Lymph # (Auto) 0.6 L (1.2-5.4) K/mm3 [place] # (Auto) 1.0 H (0.0-0.8) K/mm3 Eos # (Auto) 0.0 (0.0-0.4) K/mm3 Baso # (Auto) 0.0 (0.0-0.1) K/mm3 Comprehensive Metabolic Panel 10/16/20 Range/Units 05:32 Sodium 129 L (137-145) mmol/L Potassium 3.9 (3.6-5.0) mmol/L Chloride 93.0 L (98-107) mmol/L Carbon Dioxide 23 (22-30) mmol/L BUN 20 (9-20) mg/dL Creatinine 1.1 (0.8-1.3) mg/dL Glucose 118 H (75-100) mg/dL Calcium 8.7 (8.4-10.2) mg/dL - Imaging and Cardiology EKG: report reviewed, image reviewed
[2020-10-16] MEDS: METOPROLOL TARTRATE 50 MG TAB PO SCH ×2 (14:00→21:17)
[2020-10-16] MEDS ORDERED: hydrALAZINE 20 MG/1 ML INJ IV PRN (15:31)
[2020-10-16] MEDS: MELATONIN 5 MG TAB PO PRN (21:17)
[2020-10-16] MEDS: CLOPIDOGREL 75 MG TAB PO SCH (21:17)
[2020-10-17 05:34] LABS: Calcium 8.9 mg/dL (8.4-10.2)
[2020-10-17] MEDS: METOPROLOL TARTRATE 50 MG TAB PO SCH ×3 (06:41→23:47)
[2020-10-17] MEDS: DOCUSATE SODIUM 100 MG CAP PO SCH ×2 (09:45→23:44)
[2020-10-17] MEDS: ASPIRIN 81 MG TAB CHEW PO SCH (09:45)
--- NOTE | 2020-10-17 12:46 | Progress Note ---
Assessment and Plan - Patient Problems (1) STEMI (ST elevation myocardial infarction) Current Visit: Yes Status: Acute Plan to address problem: Patient was successfully treated with primary angioplasty of the mid right coronary artery for acute inferior STEMI. He has a secondary lesion, a severe stenosis of the distal left main which will require further revascularization in the early outpatient setting, after he is optimal covered from the current infarct. Echocardiogram done today, results are pending. Continue medical therapy for coronary artery disease includine DAPT with plavix and aspirin. (2) SVT (supraventricular tachycardia) Current Visit: Yes Status: Acute Plan to address problem: On Metoprolol for suppression of paroxysmal supraventricular tachycardia. Subjective Date of service: 10/17/20 Interval history: Patient is resting in bed comfortably, alert with periods of confusion. Head CT scan reports no acute abnormality. Denies chest pain but noted with mild SOB. Objective Vital Signs Temp Pulse Pulse Resp BP Pulse Ox 10/17/20 12:00 97.9 F 10/17/20 11:00 76 12 138/79 93 10/17/20 10:31 72 18 148/79 95 10/17/20 10:00 69 18 141/72 97 10/17/20 09:45 77 148/79 10/17/20 09:31 76 32 H 148/79 96 10/17/20 09:00 70 28 H 148/79 93 10/17/20 08:31 74 28 H 146/80 10/17/20 08:00 98.0 F 73 73 22 146/80 74 L 10/17/20 07:31 78 16 142/79 88 10/17/20 07:00 76 21 147/79 84 10/17/20 06:41 79 142/79 10/17/20 06:38 77 19 10/17/20 06:01 79 17 142/83 98 10/17/20 05:31 86 28 H 142/83 95 10/17/20 05:00 79 12 142/83 81 L 10/17/20 04:31 91 H 18 144/84 99 10/17/20 04:00 83 83 15 144/84 100 10/17/20 03:31 87 18 157/87 100 10/17/20 03:00 87 20 157/87 100 10/17/20 02:31 91 H 36 H 155/84 100 10/17/20 02:00 100 H 12 155/84 90 03/16/21 01:31 88 20 148/76 99 10/17/20 01:00 89 17 148/76 100 10/17/20 00:31 86 27 H 141/74 100 10/17/20 00:00 94 H 96 H 25 H 141/74 100 10/16/20 23:31 93 H 24 165/83 96 10/16/20 23:00 95 H 26 H 165/83 78 L 10/16/20 22:31 97 H 20 152/91 10/16/20 22:01 100 H 15 152/91 100 10/16/20 21:51 94 H 20 154/81 100 10/16/20 21:31 95 H 19 154/81 100 10/16/20 21:17 91 H 154/81 10/16/20 21:01 99 H 30 H 100 10/16/20 20:38 93 H 39 H 99 10/16/20 20:00 91 H 91 H 21 100 10/16/20 19:36 100.1 F H 10/16/20 19:30 99 H 19 149/76 100 10/16/20 19:00 105 H 11 L 145/78 100 10/16/20 18:31 107 H 15 142/86 100 10/16/20 18:01 94 H 32 H 167/104 97 10/16/20 17:31 101 H 38 H 175/100 99 10/16/20 17:00 102 H 30 H 167/104 100 10/16/20 16:30 94 H 31 H 182/97 10/16/20 16:00 98.2 F 97 H 4 L 178/91 100 10/16/20 15:30 175/95 98 10/16/20 15:00 100 H 33 H 174/90 100 10/16/20 14:30 103 H 23 179/92 99 10/16/20 14:00 180/87 10/16/20 13:30 173/103 10/16/20 13:00 99 H 27 H 178/91 - Physical Examination General: No Apparent Distress, Other (Intermittent confusion) HEENT: Positive: Normocephaly Neck: Positive: trachea midline Cardiac: Positive: Reg Rate and Rhythm Lungs: Positive: Decreased Breath Sounds Neuro: Positive: Grossly Intact Abdomen: Positive: Unremarkable Skin: Positive: Clear Extremities: Absent: edema - Labs and Meds Comprehensive Metabolic Panel 10/17/20 Range/Units 04:50 Sodium 132 L (137-145) mmol/L Potassium 4.6 (3.6-5.0) mmol/L Chloride 97.7 L (98-107) mmol/L Carbon Dioxide 23 (22-30) mmol/L BUN 37 H (9-20) mg/dL Creatinine 1.6 H (0.8-1.3) mg/dL Glucose 94 (75-100) mg/dL Calcium 8.9 (8.4-10.2) mg/dL
[2020-10-17] MEDS: MELATONIN 5 MG TAB PO PRN (23:45)
[2020-10-17] MEDS: CLOPIDOGREL 75 MG TAB PO SCH (23:45)
[2020-10-18] MEDS: METOPROLOL TARTRATE 50 MG TAB PO SCH ×3 (05:19→21:04)
[2020-10-18] MEDS: ASPIRIN 81 MG TAB CHEW PO SCH (09:09)
[2020-10-18] MEDS: DOCUSATE SODIUM 100 MG CAP PO SCH ×2 (09:09→21:04)
--- NOTE | 2020-10-18 10:12 | Progress Note ---
Assessment and Plan Assessment and plan: This is a 70-year-old male with lung cancer and tobacco abuse who presented to the emergency department on 10/15 with complaints of chest pain. Upon presentation patient was hypotensive and bradycardic requiring pacing and shortly after developed ventricular fibrillation requiring cardioversion and further work-up showed anterior/inferior ST elevation [place]. Patient was found to have percent stenosis to right MCA and severe left main artery stenosis. Cardiology was consulted and patient underwent successful PCI to the right coronary artery with deployment of a MONA. 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 This morning patient is confused and intermittently following commands therefore a CT head will be obtained for further investigation. His confusion may be related to his hyponatremia. Possible transfer to floor once cleared by cardiology. 10/17: Echocardiogram reveals left ventricular systolic function moderately decreased with EF of 35 to 40%. Mild concentric left ventricular hypertrophy. Continue medical therapy for coronary artery disease including DAPT with Plavix and aspirin. Continue metoprolol for suppression of paroxysmal supraventricular tachycardia. 10/18: Continue aspirin and Plavix. Continue Lipitor. Metoprolol 50 mg every 8 hours per cardiology recommendations. History Interval history: No new issues overnight. Hospitalist Physical - Constitutional Vitals: Temp Pulse Resp BP Pulse Ox 97.6 F 66 18 141/76 92 10/18/20 03:41 10/18/20 09:09 10/18/20 08:00 10/18/20 09:09 10/18/20 08:00 General appearance: Present: no acute distress, well-nourished - EENT Eyes: Present: PERRL, EOM intact ENT: hearing intact, clear oral mucosa, dentition normal - Neck Neck: Present: supple, normal ROM - Respiratory Respiratory effort: normal Respiratory: bilateral: CTA - Cardiovascular Rhythm: regular Heart Sounds: Present: S1 & S2. Absent: gallop, rub - Extremities Extremities: no ischemia, No edema, Full ROM - Abdominal General gastrointestinal: soft, non-tender, non-distended, normal bowel sounds - Integumentary Integumentary: Present: clear, warm, dry - Neurologic Neurologic: CNII-XII intact, moves all extremities HEART Score - HEART Score Troponin: Troponin T 0.411 ng/mL (0.00-0.029) H* D 10/16/20 05:32 Results - Labs CBC & Chem 7: 10/16/20 05:32 10/17/20 04:50 Labs: Laboratory Last Values WBC 10.4 K/mm3 (4.5-11.0) 10/16/20 05:32 RBC 3.90 M/mm3 (3.65-5.03) 10/16/20 05:32 Hgb 9.6 gm/dl (11.8-15.2) L 10/16/20 05:32 Hct 28.6 % (35.5-45.6) L 10/16/20 05:32 MCV 73 fl (84-94) L 10/16/20 05:32 MCH 25 pg (28-32) L 10/16/20 05:32 MCHC 34 % (32-34) 10/16/20 05:32 RDW 14.7 % (13.2-15.2) 10/16/20 05:32 Plt Count 464 K/mm3 (140-440) H 10/16/20 05:32 Lymph % (Auto) 5.6 % (13.4-35.0) L 10/16/20 05:32 [place] % (Auto) 9.9 % (0.0-7.3) H 10/16/20 05:32 Eos % (Auto) 0.0 % (0.0-4.3) 10/16/20 05:32 Baso % (Auto) 0.2 % (0.0-1.8) 10/16/20 05:32 Lymph # (Auto) 0.6 K/mm3 (1.2-5.4) L 10/16/20 05:32 [place] # (Auto) 1.0 K/mm3 (0.0-0.8) H 10/16/20 05:32 Eos # (Auto) 0.0 K/mm3 (0.0-0.4) 10/16/20 05:32 Baso # (Auto) 0.0 K/mm3 (0.0-0.1) 10/16/20 05:32 Seg Neutrophils % 84.3 % (40.0-70.0) H 10/16/20 05:32 Seg Neutrophils # 8.8 K/mm3 (1.8-7.7) H 10/16/20 05:32 PT 14.0 Sec. (12.2-14.9) 10/15/20 09:38 INR 1.09 (0.87-1.13) 10/15/20 09:38 APTT 28.6 Sec. (24.2-36.6) 10/15/20 09:38 Sodium 132 mmol/L (137-145) L 10/17/20 04:50 Potassium 4.6 mmol/L (3.6-5.0) 10/17/20 04:50 Chloride 97.7 mmol/L (98-107) L 10/17/20 04:50 Carbon Dioxide 23 mmol/L (22-30) 10/17/20 04:50 Anion Gap 16 mmol/L 10/17/20 04:50 BUN 37 mg/dL (9-20) H 10/17/20 04:50 Creatinine 1.6 mg/dL (0.8-1.3) H 10/17/20 04:50 Estimated GFR 52 ml/min 10/17/20 04:50 BUN/Creatinine Ratio 23 % 10/17/20 04:50 Glucose 94 mg/dL (75-100) 10/17/20 04:50 Calcium 8.9 mg/dL (8.4-10.2) 10/17/20 04:50 Ammonia 30.0 umol/L (25-60) 10/16/20 13:15 Total Creatine Kinase 748 units/L (55-170) H 10/16/20 05:32 CK-MB (CK-2) 16.4 ng/mL (0.0-4.0) H 10/16/20 05:32 CK-MB (CK-2) Rel Index 2.1 (0-4) 10/16/20 05:32 Troponin T 0.411 ng/mL (0.00-0.029) H* D 10/16/20 05:32 NT-Pro-B Natriuret Pep 238.8 pg/mL (0-900) 10/15/20 09:38 Triglycerides 63 mg/dL (2-149) 10/16/20 05:32 Cholesterol 124 mg/dL (50-199) 10/16/20 05:32 LDL Cholesterol Direct 91 mg/dL (50-130) 10/16/20 05:32 HDL Cholesterol 27 mg/dL (40-59) L 10/16/20 05:32 Cholesterol/HDL Ratio 4.59 % 10/16/20 05:32 Coronavirus (PCR) Negative (Negative) 10/16/20 Unknown [place]/IV: Voiding Method Condom Catheter Active Medications - Current Medications Current Medications: Generic Name Dose Route Start Last Admin Trade Name Freq PRN Reason Stop Dose Admin Hydrocodone Bitart/Acetaminophen 1 each 10/15/20 10:58 Hydrocodone/Acetaminophen 5-325 Mg Tab PO Q6H PRN Pain, Moderate (4-6) Aspirin 81 mg 10/16/20 10:00 10/18/20 09:09 Aspirin 81 Mg Tab Chew PO 81 mg QDAY GEOVANNI Administration Atorvastatin Calcium 80 mg 10/15/20 22:00 10/17/20 23:44 Atorvastatin 40 Mg Tab PO 80 mg QHS GEOVANNI Administration Clopidogrel Bisulfate 75 mg 10/15/20 22:00 10/17/20 23:45 Clopidogrel 75 Mg Tab PO 75 mg QHS GEOVANNI Administration Docusate Sodium 100 mg 10/15/20 12:00 10/18/20 09:09 Docusate Sodium 100 Mg Cap PO 100 mg BID GEOVANNI Administration Haloperidol Lactate 5 mg 10/15/20 18:30 10/16/20 06:49 Haloperidol Lactate 5 Mg/1 Ml Inj IV 5 mg Q6H PRN Administration Agitation Hydralazine HCl 10 mg 10/16/20 15:31 10/16/20 18:05 Hydralazine 20 Mg/1 Ml Inj IV 10 mg Q4HR PRN Administration Hypertension Sodium Chloride 1,000 mls @ 150 mls/hr 10/15/20 11:00 Nacl 0.9% 1000 Ml IV DIRECT GEOVANNI Isosorbide Mononitrate 30 mg 10/16/20 14:00 10/18/20 09:09 Isosorbide Mononitrate Er 30 Mg Tab PO 30 mg QDAY GEOVANNI Administration Lorazepam 1 mg 10/15/20 15:24 10/16/20 11:45 Lorazepam 2 Mg/Ml Vial IV 1 mg Q4H PRN Administration Seizures Melatonin 5 mg 10/16/20 12:44 10/17/20 23:45 Melatonin 5 Mg Tab PO 5 mg QHS PRN Administration Sleep Metoprolol Tartrate 50 mg 10/16/20 14:00 10/18/20 05:19 Metoprolol Tartrate 50 Mg Tab PO 50 mg Q8H GEOVANNI Administration Morphine Sulfate 2 mg 10/15/20 11:54 10/16/20 00:33 Morphine 2 Mg/1 Ml Inj IV 2 mg Q4H PRN Administration Pain, Moderate (4-6) Ondansetron HCl 4 mg 10/15/20 11:54 10/16/20 17:00 Ondansetron 4 Mg/2 Ml Inj IV 4 mg Q8H PRN Administration Nausea And Vomiting Sodium Chloride 10 ml 10/15/20 12:00 10/18/20 09:10 Sodium Chloride 0.9% 10 Ml Flush Syringe IV 10 ml BID GEOVANNI Administration Sodium Chloride 10 ml 10/15/20 11:54 Sodium Chloride 0.9% 10 Ml Flush Syringe IV PRN PRN LINE FLUSH Nutrition/Malnutrition Assess - Dietary Evaluation Nutrition/Malnutrition Findings: Nutrition Notes Start: 10/15/20 13:07 Freq: Status: Active Protocol: Document 10/16/20 08:29 CW (Rec: 10/16/20 08:44 CW [id number]) Nutrition Notes Need for Assessment generated from: MD Order,legal billing clerk,MST, Education Initial or Follow up Assessment Current Diagnosis Hypertension Other Pertinent Diagnosis Chest pain, STEMI, CA Current Diet NPO Labs/Tests Na 132 K 3.3 BUN 23 bp 148/76 Pertinent Medications Zofran Kdur Height 5 ft 11 in Weight 79.3 kg [place] Body Weight (kg) 78.18 BMI 24.3 Weight change and time frame 5% wt gain per last visit in chart ond 09/06/2020 Weight Status Appropriate Subjective/Other Information Consult for Diet education, MST, Poor Intake, Supplements, MST. Pt not appropriate for diet education d/t AMS. Pt dis not arouse to verbal stimuli upon attempt at evaluation. Wt has increased since last visit. Pt downgraded from cl liq to NPO. Percent of energy/protein needs met: 0%/0% Burn Absent Trauma Absent GI Symptoms Nausea,Vomiting Current % PO Negligible Minimum of two criteria No physical signs of malnutrition #1 Nutrition Diagnosis Inadequate energy intake Etiology NPO at this time As Evidenced by Signs and Symptoms nausea and vomiting following clear liquid diet Is patient on ventilator? No Is Patient Ambulatory and/or Out of Bed Yes REE-([facility]-ambulatory/OOB) [ 2033.66 [id number]] Calculation Used for Recommendations [facility] Additional Notes protein needs: 79 - 95g (1 - 1 .2g/kgBW for advanced age) fluid needs: 1 ml/kcal Nutrition Intervention Change Diet Order: Diet advacement when medically feasible to cardiac diet Add Supplement/Snack (indicate name/kcal Ensure High Protein /protein ) Provides kCal: 160 Provides Protein (gm) 30 Teaching Recipient Patient Teaching Methods Discussion Barriers to Learning Cognitive/Verbal RD phone number provided No Patient aware of follow up options No Goal #1 Understand importance of following cardiac diet Goal #2 diet advancement Anticipated Discharge Needs: Unable to determine at this time Follow-Up By: 10/18/20 Additional Comments F/U diet advancement, ONS need , diet education
--- NOTE | 2020-10-18 11:19 | Progress Note ---
Assessment and Plan - Patient Problems (1) STEMI (ST elevation myocardial infarction) Current Visit: Yes Status: Acute Plan to address problem: Patient was successfully treated with primary angioplasty of the mid right coronary artery for acute inferior STEMI. He has a secondary lesion, a severe stenosis of the distal left main which will require further revascularization in the early outpatient setting, after he is optimal covered from the current infarct. Echocardiogram shows a decrease left ventricular systolic function, ejection fraction 35-40%. Continue medical therapy for coronary artery disease including DAPT with plavix and aspirin. (2) SVT (supraventricular tachycardia) Current Visit: Yes Status: Acute Plan to address problem: On Metoprolol for suppression of paroxysmal supraventricular tachycardia. Subjective Date of service: 10/18/20 Interval history: Patient is resting in bed comfortably, alert with periods of confusion. No cardiac complaints. Objective Vital Signs Temp Pulse Pulse Resp BP Pulse Ox 10/18/20 09:09 66 141/76 10/18/20 08:00 98.8 F 74 73 13 132/70 96 10/18/20 07:31 65 15 138/82 94 10/18/20 07:01 65 23 138/82 92 10/18/20 06:31 71 21 161/89 95 10/18/20 06:01 78 27 H 161/89 96 10/18/20 05:31 73 21 156/78 91 10/18/20 05:19 75 162/71 10/18/20 05:01 77 18 162/81 99 10/18/20 04:31 72 18 159/75 94 10/18/20 04:01 70 17 156/78 91 10/18/20 04:00 73 73 18 92 10/18/20 03:41 97.6 F 10/18/20 03:31 76 18 159/75 94 10/18/20 03:01 86 25 H 159/75 95 10/18/20 02:31 74 28 H 139/73 91 10/18/20 02:01 70 21 139/73 91 10/18/20 01:31 83 21 124/85 94 10/18/20 01:00 77 25 H 129/70 94 10/18/20 00:31 84 22 124/85 97 10/18/20 00:00 98.2 F 85 85 22 124/85 92 10/17/20 23:47 86 119/77 10/17/20 23:31 119/77 92 10/17/20 23:01 119/77 96 10/17/20 22:47 79 116/74 96 10/17/20 22:31 131/69 97 10/17/20 22:00 116/74 93 10/17/20 21:31 131/69 93 10/17/20 21:00 131/69 97 10/17/20 20:31 113/50 96 10/17/20 20:01 83 17 113/50 96 10/17/20 20:00 98.1 F 89 89 30 H 97 10/17/20 19:31 78 15 140/86 96 10/17/20 19:01 76 28 H 140/86 95 10/17/20 18:31 77 14 114/69 93 10/17/20 18:00 77 11 L 114/69 95 10/17/20 17:31 76 24 114/78 96 10/17/20 17:00 71 21 118/73 96 10/17/20 16:31 77 26 H 118/73 96 10/17/20 16:00 97.9 F 74 77 20 118/73 95 10/17/20 15:31 84 31 H 117/72 92 10/17/20 15:01 79 17 117/72 97 10/17/20 14:31 82 18 113/74 97 10/17/20 14:26 76 113/74 10/17/20 14:00 77 24 113/74 97 10/17/20 13:31 77 18 131/65 96 10/17/20 13:00 76 21 128/70 96 10/17/20 12:31 75 24 131/65 98 10/17/20 12:00 97.9 F 71 71 21 131/65 96 10/17/20 11:31 77 13 141/72 96 - Physical Examination General: No Apparent Distress, Other (Intermittent confusion) HEENT: Positive: Normocephaly Neck: Positive: trachea midline Cardiac: Positive: Reg Rate and Rhythm Lungs: Positive: Decreased Breath Sounds Neuro: Positive: Grossly Intact Extremities: Absent: edema
[2020-10-18] MEDS: CLOPIDOGREL 75 MG TAB PO SCH (21:04)
[2020-10-18] MEDS: MELATONIN 5 MG TAB PO PRN (21:05)
[2020-10-19] MEDS: SODIUM CHLORIDE 0.9% 1000 ML 1,000 ML IV SCH ×3 (03:29→21:16)
[2020-10-19] MEDS: METOPROLOL TARTRATE 50 MG TAB PO SCH ×3 (06:41→21:10)
[2020-10-19] MEDS: ASPIRIN 81 MG TAB CHEW PO SCH (09:21)
[2020-10-19] MEDS: DOCUSATE SODIUM 100 MG CAP PO SCH ×2 (09:21→21:13)
[2020-10-19] MEDS ORDERED: HEPARIN 10,000 UNITS/10 ML VIAL IV PRN (10:57)
--- NOTE | 2020-10-19 11:00 | Progress Note ---
Assessment and Plan - Patient Problems (1) STEMI (ST elevation myocardial infarction) Current Visit: Yes Status: Acute Plan to address problem: Patient was successfully treated with primary angioplasty of the mid right coronary artery for acute inferior STEMI. He has a secondary lesion, a severe stenosis of the distal left main which will require further revascularization. Echocardiogram shows a decrease left ventricular systolic function, ejection fraction 35-40%. (2) SVT (supraventricular tachycardia) Current Visit: Yes Status: Acute Plan to address problem: On Metoprolol for suppression of paroxysmal supraventricular tachycardia. Subjective Date of service: 10/19/20 Interval history: Patient is resting in bed comfortably. No cardiac complaints. Denies chest pain. Objective Vital Signs Temp Pulse Pulse Resp Resp BP Pulse Ox 10/19/20 10:00 61 21 18 143/75 94 10/19/20 09:21 72 10/19/20 09:01 76 22 138/76 95 10/19/20 08:01 76 30 H 139/83 97 10/19/20 08:00 98.2 F 67 18 10/19/20 07:01 66 18 130/60 96 10/19/20 06:41 73 134/68 10/19/20 06:00 73 23 124/67 95 10/19/20 05:00 68 18 115/62 94 10/19/20 04:37 74 10/19/20 04:00 98.5 F 71 18 18 131/73 90 10/19/20 03:00 72 21 127/70 94 10/19/20 02:00 72 13 114/60 94 10/19/20 01:00 68 14 101/52 97 10/19/20 00:39 73 10/19/20 00:00 97.8 F 73 19 109/58 91 10/18/20 23:00 81 26 H 119/56 96 10/18/20 22:01 76 18 83/41 95 10/18/20 21:04 88 118/79 10/18/20 21:01 86 15 115/75 95 10/18/20 20:27 81 10/18/20 20:01 79 16 115/75 95 10/18/20 20:00 98.5 F 10/18/20 19:00 79 28 H 127/70 93 10/18/20 18:03 80 19 101/71 95 10/18/20 18:00 80 25 H 101/71 96 10/18/20 17:31 80 19 138/66 93 10/18/20 17:01 86 19 123/72 94 10/18/20 16:31 80 23 123/72 95 10/18/20 16:01 77 24 123/72 94 10/18/20 16:00 98.5 F 81 82 18 95 10/18/20 15:31 74 23 98/65 97 10/18/20 15:01 74 15 98/65 95 10/18/20 14:31 72 22 106/64 98 10/18/20 14:00 72 21 106/54 95 10/18/20 13:31 74 13 106/64 93 10/18/20 13:01 78 18 106/64 97 10/18/20 12:31 76 23 105/58 97 10/18/20 12:01 77 13 126/71 95 10/18/20 12:00 98.1 F 76 82 18 95 10/18/20 11:31 76 14 126/71 96 10/18/20 11:00 68 17 126/71 98 - Physical Examination General: No Apparent Distress HEENT: Positive: PERRL Neck: Positive: trachea midline Cardiac: Positive: Reg Rate and Rhythm Lungs: Positive: Decreased Breath Sounds Neuro: Positive: Grossly Intact Extremities: Absent: edema
[2020-10-19] MEDS ORDERED: HEPARIN/ 0.45% NACL DRIP 25,000 UNIT/500 ML BAG IV SCH (12:00)
--- NOTE | 2020-10-19 13:08 | Progress Note ---
Assessment and Plan Assessment and plan: This is a 70-year-old male with lung cancer and tobacco abuse who presented to the emergency department on 10/15 with complaints of chest pain. Upon presentation patient was hypotensive and bradycardic requiring pacing and shortly after developed ventricular fibrillation requiring cardioversion and further work-up showed anterior/inferior ST elevation [place]. Patient was found to have percent stenosis to right MCA and severe left main artery stenosis. Cardiology was consulted and patient underwent successful PCI to the right coronary artery with deployment of a MONA. STEMI -Presented hypotensive and bradycardic requiring pacing then developed ventricular fibrillation requiring cardioversion -ECG showed inferior/anterior ST elevation -Left heart cath revealed severe left main and right coronary artery 100% stenosis -S/p PCI with drug-eluting stent -Beta-annalisa, antiplatelet, antilipid therapy Ventricular fibrillation -Noted in the [place] -S/p cardioversion Hyponatremia -Trend BMP Peripheral vascular disease -Statin therapy -Unknown possible surgical intervention Tobacco abuse -Tobacco cessation counseling DVT/GI prophylaxis -Protonix, SCDs to bilateral lower extremities while in bed 10/16: Overnight patient had a run of SVT for which the patient spontaneously reverted back to sinus rhythm and did not require intervention. This morning patient is confused and intermittently following commands therefore a CT head will be obtained for further investigation. His confusion may be related to his hyponatremia. Possible transfer to floor once cleared by cardiology. 10/17: Echocardiogram reveals left ventricular systolic function moderately decreased with EF of 35 to 40%. Mild concentric left ventricular hypertrophy. Continue medical therapy for coronary artery disease including DAPT with Plavix and aspirin. Continue metoprolol for suppression of paroxysmal supraventricular tachycardia. 10/18: Continue aspirin and Plavix. Continue Lipitor. Metoprolol 50 mg every 8 hours per cardiology recommendations. 10/19: Patient was successfully treated with primary angioplasty of the mid right coronary artery for acute inferior STEMI. He has a secondary lesion, a severe stenosis of the distal left main which will require further revascularization. Continue aspirin, Plavix, Lipitor and metoprolol. History Interval history: No new issues overnight. Hospitalist Physical - Constitutional Vitals: Temp Pulse Resp BP Pulse Ox 98.0 F 69 17 139/82 97 10/19/20 12:00 10/19/20 11:00 10/19/20 11:00 10/19/20 11:00 10/19/20 11:00 General appearance: Present: no acute distress, well-nourished - EENT Eyes: Present: PERRL, EOM intact ENT: hearing intact, clear oral mucosa, dentition normal - Neck Neck: Present: supple, normal ROM - Respiratory Respiratory effort: normal Respiratory: bilateral: CTA - Cardiovascular Rhythm: regular Heart Sounds: Present: S1 & S2. Absent: gallop, rub - Extremities Extremities: no ischemia, No edema, Full ROM - Abdominal General gastrointestinal: soft, non-tender, non-distended, normal bowel sounds - Integumentary Integumentary: Present: clear, warm, dry - Neurologic Neurologic: CNII-XII intact, moves all extremities HEART Score - HEART Score Troponin: Troponin T 0.411 ng/mL (0.00-0.029) H* D 10/16/20 05:32 Results - Labs CBC & Chem 7: 10/16/20 05:32 10/17/20 04:50 Labs: Laboratory Last Values WBC 10.4 K/mm3 (4.5-11.0) 10/16/20 05:32 RBC 3.90 M/mm3 (3.65-5.03) 10/16/20 05:32 Hgb 9.6 gm/dl (11.8-15.2) L 10/16/20 05:32 Hct 28.6 % (35.5-45.6) L 10/16/20 05:32 MCV 73 fl (84-94) L 10/16/20 05:32 MCH 25 pg (28-32) L 10/16/20 05:32 MCHC 34 % (32-34) 10/16/20 05:32 RDW 14.7 % (13.2-15.2) 10/16/20 05:32 Plt Count 464 K/mm3 (140-440) H 10/16/20 05:32 Lymph % (Auto) 5.6 % (13.4-35.0) L 10/16/20 05:32 [place] % (Auto) 9.9 % (0.0-7.3) H 10/16/20 05:32 Eos % (Auto) 0.0 % (0.0-4.3) 10/16/20 05:32 Baso % (Auto) 0.2 % (0.0-1.8) 10/16/20 05:32 Lymph # (Auto) 0.6 K/mm3 (1.2-5.4) L 10/16/20 05:32 [place] # (Auto) 1.0 K/mm3 (0.0-0.8) H 10/16/20 05:32 Eos # (Auto) 0.0 K/mm3 (0.0-0.4) 10/16/20 05:32 Baso # (Auto) 0.0 K/mm3 (0.0-0.1) 10/16/20 05:32 Seg Neutrophils % 84.3 % (40.0-70.0) H 10/16/20 05:32 Seg Neutrophils # 8.8 K/mm3 (1.8-7.7) H 10/16/20 05:32 PT 14.0 Sec. (12.2-14.9) 10/15/20 09:38 INR 1.09 (0.87-1.13) 10/15/20 09:38 APTT 28.6 Sec. (24.2-36.6) 10/15/20 09:38 Sodium 132 mmol/L (137-145) L 10/17/20 04:50 Potassium 4.6 mmol/L (3.6-5.0) 10/17/20 04:50 Chloride 97.7 mmol/L (98-107) L 10/17/20 04:50 Carbon Dioxide 23 mmol/L (22-30) 10/17/20 04:50 Anion Gap 16 mmol/L 10/17/20 04:50 BUN 37 mg/dL (9-20) H 10/17/20 04:50 Creatinine 1.6 mg/dL (0.8-1.3) H 10/17/20 04:50 Estimated GFR 52 ml/min 10/17/20 04:50 BUN/Creatinine Ratio 23 % 10/17/20 04:50 Glucose 94 mg/dL (75-100) 10/17/20 04:50 Calcium 8.9 mg/dL (8.4-10.2) 10/17/20 04:50 Ammonia 30.0 umol/L (25-60) 10/16/20 13:15 Total Creatine Kinase 748 units/L (55-170) H 10/16/20 05:32 CK-MB (CK-2) 16.4 ng/mL (0.0-4.0) H 10/16/20 05:32 CK-MB (CK-2) Rel Index 2.1 (0-4) 10/16/20 05:32 Troponin T 0.411 ng/mL (0.00-0.029) H* D 10/16/20 05:32 NT-Pro-B Natriuret Pep 238.8 pg/mL (0-900) 10/15/20 09:38 Triglycerides 63 mg/dL (2-149) 10/16/20 05:32 Cholesterol 124 mg/dL (50-199) 10/16/20 05:32 LDL Cholesterol Direct 91 mg/dL (50-130) 10/16/20 05:32 HDL Cholesterol 27 mg/dL (40-59) L 10/16/20 05:32 Cholesterol/HDL Ratio 4.59 % 10/16/20 05:32 Coronavirus (PCR) Negative (Negative) 10/16/20 Unknown Microbiology: Microbiology 10/15/20 05:07 Nares - Left MRSA Culture - Final Geiger/IV: Voiding Method Condom Catheter Active Medications - Current Medications Current Medications: Generic Name Dose Route Start Last Admin Trade Name Freq PRN Reason Stop Dose Admin Hydrocodone Bitart/Acetaminophen 1 each 10/15/20 10:58 Hydrocodone/Acetaminophen 5-325 Mg Tab PO Q6H PRN Pain, Moderate (4-6) Aspirin 81 mg 10/16/20 10:00 10/19/20 09:21 Aspirin 81 Mg Tab Chew PO 81 mg QDAY GEOVANNI Administration Atorvastatin Calcium 80 mg 10/15/20 22:00 10/18/20 21:05 Atorvastatin 40 Mg Tab PO 80 mg QHS GEOVANNI Administration Clopidogrel Bisulfate 75 mg 10/15/20 22:00 10/18/20 21:04 Clopidogrel 75 Mg Tab PO 75 mg QHS GEOVANNI Administration Docusate Sodium 100 mg 10/15/20 12:00 10/19/20 09:21 Docusate Sodium 100 Mg Cap PO 100 mg BID GEOVANNI Administration Haloperidol Lactate 5 mg 10/15/20 18:30 10/16/20 06:49 Haloperidol Lactate 5 Mg/1 Ml Inj IV 5 mg Q6H PRN Administration Agitation Heparin Sodium (Porcine) 3,200 unit 10/19/20 10:57 Heparin 10,000 Units/10 Ml Vial 40 unit/kg (3200 unit) IV Q6H PRN Anti-Xa Assay < 0.1 units/ml Hydralazine HCl 10 mg 10/16/20 15:31 10/16/20 18:05 Hydralazine 20 Mg/1 Ml Inj IV 10 mg Q4HR PRN Administration Hypertension Sodium Chloride 1,000 mls @ 150 mls/hr 10/15/20 11:00 10/19/20 10:04 Nacl 0.9% 1000 Ml IV 0 mls/hr DIRECT GEOVANNI Infusion Heparin Sodium/Sodium Chloride 25,000 unit in 500 mls @ 20 mls/hr 10/19/20 12:00 Heparin/ 0.45% Nacl-25,000 Unit/500 Ml IV TITRATE GEOVANNI Protocol 1,000 UNITS/HR Isosorbide Mononitrate 30 mg 10/16/20 14:00 10/19/20 09:21 Isosorbide Mononitrate Er 30 Mg Tab PO 30 mg QDAY GEOVANNI Administration Lorazepam 1 mg 10/15/20 15:24 10/16/20 11:45 Lorazepam 2 Mg/Ml Vial IV 1 mg Q4H PRN Administration Seizures Melatonin 5 mg 10/16/20 12:44 10/18/20 21:05 Melatonin 5 Mg Tab PO 5 mg QHS PRN Administration Sleep Metoprolol Tartrate 50 mg 10/16/20 14:00 10/19/20 06:41 Metoprolol Tartrate 50 Mg Tab PO 50 mg Q8H GEOVANNI Administration Morphine Sulfate 2 mg 10/15/20 11:54 10/16/20 00:33 Morphine 2 Mg/1 Ml Inj IV 2 mg Q4H PRN Administration Pain, Moderate (4-6) Ondansetron HCl 4 mg 10/15/20 11:54 10/16/20 17:00 Ondansetron 4 Mg/2 Ml Inj IV 4 mg Q8H PRN Administration Nausea And Vomiting Sodium Chloride 10 ml 10/15/20 12:00 10/19/20 09:25 Sodium Chloride 0.9% 10 Ml Flush Syringe IV 10 ml BID GEOVANNI Administration Sodium Chloride 10 ml 10/15/20 11:54 Sodium Chloride 0.9% 10 Ml Flush Syringe IV PRN PRN LINE FLUSH Nutrition/Malnutrition Assess - Dietary Evaluation Nutrition/Malnutrition Findings: Nutrition Notes Start: 10/15/20 13:07 Freq: Status: Active Protocol: Document 10/18/20 10:02 AL (Rec: 10/18/20 10:14 AL [id number]) Co-Sign 10/18/20 10:02 LP Nutrition Notes Initial or Follow up Assessment Current Diagnosis Hypertension Other Pertinent Diagnosis Chest pain, STEMI, CA, lung cancer Current Diet Cardiac diet Labs/Tests 10/17 Na 132 BUN 37 Cr 1.6 Pertinent Medications Colace Height 5 ft 11 in Weight 79.3 kg [place] Body Weight (kg) 78.18 BMI 24.3 Weight Status Appropriate Subjective/Other Information F/U for diet advancement, ONS need, and diet education. Pt diet has been advanced to Cardiac. Diet education conducted on Heart Healthy diet. Pt hard of hearing, but was fully engaged. Pt consumed 0% of breakfast this morning and dinner last night. Ensure HP was given to pt this morning and he consumed 100%. He Requested vanilla ONS supplement BID. Percent of energy/protein needs met: 8%/38% Burn Absent GI Symptoms Nausea,Vomiting Current % PO Negligible Minimum of two criteria No Muscle Mass Mild Depletion (non-severe) #2 Nutrition Diagnosis Food and nutrition-related knowledge deficit Etiology HTN As Evidenced by Signs and Symptoms Pt asked for information pertaining to low sodium diet recommendations. #1 Nutrition Diagnosis Inadequate energy intake As Evidenced by Signs and Symptoms NPO diet has been advanced to Cardiac diet Pt consumed 1 Ensure HP ONS this morning. Diagnosis Progress(for reassessment Improved documentation) Is patient on ventilator? No Is Patient Ambulatory and/or Out of Bed Yes REE-([facility]-ambulatory/OOB) [ NUTR.[id number]] Calculation Used for Recommendations [facility] Additional Notes protein needs: 79 - 95g (1 - 1 .2g/kg ABW for advanced age) fluid needs: 1 ml/kcal Nutrition Intervention Change Diet Order: Current diet as ordered Add Supplement/Snack (indicate name/kcal Ensure High Protein BID /protein ) Provides kCal: 320 Provides Protein (gm) 60 Teaching Recipient Patient Learning Readiness Fair Teaching Methods Discussion,Handout Response to Teaching Verbalize understanding Education Handouts Provided Heart Healthy Diet Barriers to Learning Cognitive/Verbal RD phone number provided Yes Patient aware of follow up options Yes Goal #1 Meet at leaset 75% of estimated energy and protein needs PO Goal #2 ONS tolerance Anticipated Discharge Needs: Cardiac Diet Follow-Up By: 10/20/20 Additional Comments F/U for PO intakes and ONS tolerance.
[2020-10-19 14:48] LABS: INR 1.08 (0.87-1.13); Partial Thromboplastin Time 28.1 Sec. (24.2-36.6)
[2020-10-19 14:58] LABS: Hematocrit 27.4 % (35.5-45.6)
[2020-10-19] MEDS: CLOPIDOGREL 75 MG TAB PO SCH (21:13)
[2020-10-20] MEDS: METOPROLOL TARTRATE 50 MG TAB PO SCH (05:21)
--- NOTE | 2020-10-20 09:37 | Progress Note ---
Assessment and Plan Assessment and plan: This is a 70-year-old male with lung cancer and tobacco abuse who presented to the emergency department on 10/15 with complaints of chest pain. Upon presentation patient was hypotensive and bradycardic requiring pacing and shortly after developed ventricular fibrillation requiring cardioversion and further work-up showed anterior/inferior ST elevation [place]. Patient was found to have percent stenosis to right MCA and severe left main artery stenosis. Cardiology was consulted and patient underwent successful PCI to the right coronary artery with deployment of a MONA. STEMI -Presented hypotensive and bradycardic requiring pacing then developed ventricular fibrillation requiring cardioversion -ECG showed inferior/anterior ST elevation -Left heart cath revealed severe left main and right coronary artery 100% stenosis -S/p PCI with drug-eluting stent -Beta-annalisa, antiplatelet, antilipid therapy Ventricular fibrillation -Noted in the Training Representative -S/p cardioversion Lung cancer hyponatremia -Trend BMP Peripheral vascular disease -Statin therapy -Unknown possible surgical intervention cardiology to decide regarding percutaneous revascularization Tobacco abuse -Tobacco cessation counseling DVT/GI prophylaxis -Protonix, SCDs to bilateral lower extremities while in bed 10/16: Overnight patient had a run of SVT for which the patient spontaneously reverted back to sinus rhythm and did not require intervention. This morning patient is confused and intermittently following commands therefore a CT head will be obtained for further investigation. His confusion may be related to his hyponatremia. Possible transfer to floor once cleared by cardiology. 10/17: Echocardiogram reveals left ventricular systolic function moderately decreased with EF of 35 to 40%. Mild concentric left ventricular hypertrophy. Continue medical therapy for coronary artery disease including DAPT with Plavix and aspirin. Continue metoprolol for suppression of paroxysmal supraventricular tachycardia. 10/18: Continue aspirin and Plavix. Continue Lipitor. Metoprolol 50 mg every 8 hours per cardiology recommendations. 10/19: Patient was successfully treated with primary angioplasty of the mid right coronary artery for acute inferior STEMI. He has a secondary lesion, a severe stenosis of the distal left main which will require further revascularization. Continue aspirin, Plavix, Lipitor and metoprolol. 10/20: Cardiology to decide regarding percutaneous revascularization. Continue aspirin, Plavix, Lipitor and metoprolol. PT evaluation recommends home health PT. Continue supportive care. History Interval history: No new issues overnight. Hospitalist Physical - Constitutional Vitals: Temp Pulse Resp BP Pulse Ox 99.0 F 80 17 124/73 94 10/20/20 03:35 10/20/20 05:21 10/20/20 03:35 10/20/20 05:21 10/20/20 03:35 General appearance: Present: no acute distress, well-nourished - EENT Eyes: Present: PERRL, EOM intact ENT: hearing intact, clear oral mucosa, dentition normal - Neck Neck: Present: supple, normal ROM - Respiratory Respiratory effort: normal Respiratory: bilateral: CTA - Cardiovascular Rhythm: regular Heart Sounds: Present: S1 & S2. Absent: gallop, rub - Extremities Extremities: no ischemia, No edema, Full ROM - Abdominal General gastrointestinal: soft, non-tender, non-distended, normal bowel sounds - Integumentary Integumentary: Present: clear, warm, dry - Neurologic Neurologic: CNII-XII intact, moves all extremities HEART Score - HEART Score Troponin: Troponin T 0.411 ng/mL (0.00-0.029) H* D 10/16/20 05:32 Results - Labs CBC & Chem 7: 10/19/20 14:02 10/17/20 04:50 Labs: Laboratory Last Values WBC 10.4 K/mm3 (4.5-11.0) 10/16/20 05:32 RBC 3.90 M/mm3 (3.65-5.03) 10/16/20 05:32 Hgb 9.0 gm/dl (11.8-15.2) L 10/19/20 14:02 Hct 27.4 % (35.5-45.6) L 10/19/20 14:02 MCV 73 fl (84-94) L 10/16/20 05:32 MCH 25 pg (28-32) L 10/16/20 05:32 MCHC 34 % (32-34) 10/16/20 05:32 RDW 14.7 % (13.2-15.2) 10/16/20 05:32 Plt Count 454 K/mm3 (140-440) H 10/19/20 14:02 Lymph % (Auto) 5.6 % (13.4-35.0) L 10/16/20 05:32 [place] % (Auto) 9.9 % (0.0-7.3) H 10/16/20 05:32 Eos % (Auto) 0.0 % (0.0-4.3) 10/16/20 05:32 Baso % (Auto) 0.2 % (0.0-1.8) 10/16/20 05:32 Lymph # (Auto) 0.6 K/mm3 (1.2-5.4) L 10/16/20 05:32 [place] # (Auto) 1.0 K/mm3 (0.0-0.8) H 10/16/20 05:32 Eos # (Auto) 0.0 K/mm3 (0.0-0.4) 10/16/20 05:32 Baso # (Auto) 0.0 K/mm3 (0.0-0.1) 10/16/20 05:32 Seg Neutrophils % 84.3 % (40.0-70.0) H 10/16/20 05:32 Seg Neutrophils # 8.8 K/mm3 (1.8-7.7) H 10/16/20 05:32 PT 13.8 Sec. (12.2-14.9) 10/19/20 14:02 INR 1.08 (0.87-1.13) 10/19/20 14:02 APTT 28.1 Sec. (24.2-36.6) 10/19/20 14:02 Heparin Anti-Xa Level 0.30 U.I./ml (0.3-0.7) 10/20/20 02:08 Sodium 132 mmol/L (137-145) L 10/17/20 04:50 Potassium 4.6 mmol/L (3.6-5.0) 10/17/20 04:50 Chloride 97.7 mmol/L (98-107) L 10/17/20 04:50 Carbon Dioxide 23 mmol/L (22-30) 10/17/20 04:50 Anion Gap 16 mmol/L 10/17/20 04:50 BUN 37 mg/dL (9-20) H 10/17/20 04:50 Creatinine 1.6 mg/dL (0.8-1.3) H 10/17/20 04:50 Estimated GFR 52 ml/min 10/17/20 04:50 BUN/Creatinine Ratio 23 % 10/17/20 04:50 Glucose 94 mg/dL (75-100) 10/17/20 04:50 Calcium 8.9 mg/dL (8.4-10.2) 10/17/20 04:50 Ammonia 30.0 umol/L (25-60) 10/16/20 13:15 Total Creatine Kinase 748 units/L (55-170) H 10/16/20 05:32 CK-MB (CK-2) 16.4 ng/mL (0.0-4.0) H 10/16/20 05:32 CK-MB (CK-2) Rel Index 2.1 (0-4) 10/16/20 05:32 Troponin T 0.411 ng/mL (0.00-0.029) H* D 10/16/20 05:32 NT-Pro-B Natriuret Pep 238.8 pg/mL (0-900) 10/15/20 09:38 Triglycerides 63 mg/dL (2-149) 10/16/20 05:32 Cholesterol 124 mg/dL (50-199) 10/16/20 05:32 LDL Cholesterol Direct 91 mg/dL (50-130) 10/16/20 05:32 HDL Cholesterol 27 mg/dL (40-59) L 10/16/20 05:32 Cholesterol/HDL Ratio 4.59 % 10/16/20 05:32 Coronavirus (PCR) Negative (Negative) 10/16/20 Unknown Geiger/IV: Voiding Method Condom Catheter Active Medications - Current Medications Current Medications: Generic Name Dose Route Start Last Admin Trade Name Freq PRN Reason Stop Dose Admin Hydrocodone Bitart/Acetaminophen 1 each 10/15/20 10:58 10/20/20 01:51 Hydrocodone/Acetaminophen 5-325 Mg Tab PO 1 each Q6H PRN Administration Pain, Moderate (4-6) Aspirin 81 mg 10/16/20 10:00 10/19/20 09:21 Aspirin 81 Mg Tab Chew PO 81 mg QDAY GEOVANNI Administration Atorvastatin Calcium 80 mg 10/15/20 22:00 10/19/20 21:13 Atorvastatin 40 Mg Tab PO 80 mg QHS GEOVANNI Administration Clopidogrel Bisulfate 75 mg 10/15/20 22:00 10/19/20 21:13 Clopidogrel 75 Mg Tab PO 75 mg QHS GEOVANNI Administration Docusate Sodium 100 mg 10/15/20 12:00 10/19/20 21:13 Docusate Sodium 100 Mg Cap PO 100 mg BID GEOVANNI Administration Haloperidol Lactate 5 mg 10/15/20 18:30 10/16/20 06:49 Haloperidol Lactate 5 Mg/1 Ml Inj IV 5 mg Q6H PRN Administration Agitation Heparin Sodium (Porcine) 3,200 unit 10/19/20 10:57 Heparin 10,000 Units/10 Ml Vial 40 unit/kg (3200 unit) IV Q6H PRN Anti-Xa Assay < 0.1 units/ml Hydralazine HCl 10 mg 10/16/20 15:31 10/16/20 18:05 Hydralazine 20 Mg/1 Ml Inj IV 10 mg Q4HR PRN Administration Hypertension Sodium Chloride 1,000 mls @ 150 mls/hr 10/15/20 11:00 10/19/20 21:16 Nacl 0.9% 1000 Ml IV 150 mls/hr DIRECT GEOVANNI Administration Heparin Sodium/Sodium Chloride 25,000 unit in 500 mls @ 20 mls/hr 10/19/20 12:00 10/20/20 03:00 Heparin/ 0.45% Nacl-25,000 Unit/500 Ml IV 1,000 units/hr TITRATE GEOVANNI 20 mls/hr Titration Protocol 1,000 UNITS/HR Isosorbide Mononitrate 30 mg 10/16/20 14:00 10/19/20 09:21 Isosorbide Mononitrate Er 30 Mg Tab PO 30 mg QDAY GEOVANNI Administration Lorazepam 1 mg 10/15/20 15:24 10/16/20 11:45 Lorazepam 2 Mg/Ml Vial IV 1 mg Q4H PRN Administration Seizures Melatonin 5 mg 10/16/20 12:44 10/18/20 21:05 Melatonin 5 Mg Tab PO 5 mg QHS PRN Administration Sleep Metoprolol Tartrate 50 mg 10/16/20 14:00 10/20/20 05:21 Metoprolol Tartrate 50 Mg Tab PO 50 mg Q8H GEOVANNI Administration Morphine Sulfate 2 mg 10/15/20 11:54 10/16/20 00:33 Morphine 2 Mg/1 Ml Inj IV 2 mg Q4H PRN Administration Pain, Moderate (4-6) Ondansetron HCl 4 mg 10/15/20 11:54 10/16/20 17:00 Ondansetron 4 Mg/2 Ml Inj IV 4 mg Q8H PRN Administration Nausea And Vomiting Sodium Chloride 10 ml 10/15/20 12:00 10/19/20 21:10 Sodium Chloride 0.9% 10 Ml Flush Syringe IV 10 ml BID GEOVANNI Administration Sodium Chloride 10 ml 10/15/20 11:54 Sodium Chloride 0.9% 10 Ml Flush Syringe IV PRN PRN LINE FLUSH Nutrition/Malnutrition Assess - Dietary Evaluation Nutrition/Malnutrition Findings: Nutrition Notes Start: 10/15/20 13:07 Freq: Status: Active Protocol: Document 10/18/20 10:02 AL (Rec: 10/18/20 10:14 AL [id number]) Co-Sign 10/18/20 10:02 LP Nutrition Notes Initial or Follow up Assessment Current Diagnosis Hypertension Other Pertinent Diagnosis Chest pain, STEMI, CA, lung cancer Current Diet Cardiac diet Labs/Tests 10/17 Na 132 BUN 37 Cr 1.6 Pertinent Medications Colace Height 5 ft 11 in Weight 79.3 kg [place] Body Weight (kg) 78.18 BMI 24.3 Weight Status Appropriate Subjective/Other Information F/U for diet advancement, ONS need, and diet education. Pt diet has been advanced to Cardiac. Diet education conducted on Heart Healthy diet. Pt hard of hearing, but was fully engaged. Pt consumed 0% of breakfast this morning and dinner last night. Ensure HP was given to pt this morning and he consumed 100%. He Requested vanilla ONS supplement BID. Percent of energy/protein needs met: 8%/38% Burn Absent GI Symptoms Nausea,Vomiting Current % PO Negligible Minimum of two criteria No Muscle Mass Mild Depletion (non-severe) #2 Nutrition Diagnosis Food and nutrition-related knowledge deficit Etiology HTN As Evidenced by Signs and Symptoms Pt asked for information pertaining to low sodium diet recommendations. #1 Nutrition Diagnosis Inadequate energy intake As Evidenced by Signs and Symptoms NPO diet has been advanced to Cardiac diet Pt consumed 1 Ensure HP ONS this morning. Diagnosis Progress(for reassessment Improved documentation) Is patient on ventilator? No Is Patient Ambulatory and/or Out of Bed Yes REE-([facility]-ambulatory/OOB) [ 2033.66 [id number].MSJOOB] Calculation Used for Recommendations [facility] Additional Notes protein needs: 79 - 95g (1 - 1 .2g/kg ABW for advanced age) fluid needs: 1 ml/kcal Nutrition Intervention Change Diet Order: Current diet as ordered Add Supplement/Snack (indicate name/kcal Ensure High Protein BID /protein ) Provides kCal: 320 Provides Protein (gm) 60 Teaching Recipient Patient Learning Readiness Fair Teaching Methods Discussion,Handout Response to Teaching Verbalize understanding Education Handouts Provided Heart Healthy Diet Barriers to Learning Cognitive/Verbal RD phone number provided Yes Patient aware of follow up options Yes Goal #1 Meet at [place] 75% of estimated energy and protein needs PO Goal #2 ONS tolerance Anticipated Discharge Needs: Cardiac Diet Follow-Up By: 10/20/20 Additional Comments F/U for PO intakes and ONS tolerance.
[2020-10-20] MEDS: ASPIRIN 81 MG TAB CHEW PO SCH (10:45)
[2020-10-20] MEDS: DOCUSATE SODIUM 100 MG CAP PO SCH (10:45)
--- NOTE | 2020-10-20 10:53 | Progress Note ---
Assessment and Plan - Patient Problems (1) STEMI (ST elevation myocardial infarction) Current Visit: Yes Status: Acute Plan to address problem: Patient was successfully treated with primary angioplasty of the mid right coronary artery for acute inferior STEMI. He has a secondary lesion, a severe stenosis of the distal left main which will require further revascularization. Echocardiogram shows a decrease left ventricular systolic function, ejection fraction 35-40%. We will proceed to percutaneous options for revascularization in the early outpatient setting at [place]. Patient is stable for discharge on optimal medical therapy. (2) SVT (supraventricular tachycardia) Current Visit: Yes Status: Acute Plan to address problem: On Metoprolol for suppression of paroxysmal supraventricular tachycardia. Subjective Date of service: 10/20/20 Interval history: Patient is resting in bed comfortably. No cardiac complaints. Denies chest pain. Objective Vital Signs Temp Pulse Resp BP Pulse Ox 10/20/20 05:21 80 124/73 10/20/20 04:00 80 10/20/20 03:35 99.0 F 93 H 17 124/73 94 10/20/20 00:00 84 18 10/19/20 23:53 98.0 F 87 18 137/82 94 10/19/20 21:10 88 130/65 10/19/20 20:00 81 10/19/20 19:41 98.0 F 82 16 130/65 96 10/19/20 16:16 97.9 F 75 124/73 94 10/19/20 16:00 82 18 10/19/20 15:41 124/64 96 10/19/20 15:30 75 21 124/64 97 10/19/20 15:00 76 22 140/70 96 10/19/20 14:00 73 19 125/62 98 10/19/20 13:01 80 17 127/81 10/19/20 12:00 98.0 F 68 22 127/81 96 10/19/20 11:00 69 17 139/82 97 - Physical Examination General: No Apparent Distress HEENT: Positive: PERRL Neck: Positive: trachea midline Neuro: Positive: Grossly Intact Abdomen: Positive: Unremarkable Skin: Positive: Clear Extremities: Absent: edema - Labs and Meds Coagulation 10/19/20 Range/Units 14:02 PT 13.8 (12.2-14.9) Sec. INR 1.08 (0.87-1.13) APTT 28.1 (24.2-36.6) Sec. CBC 10/19/20 Range/Units 14:02 Hgb 9.0 L (11.8-15.2) gm/dl Hct 27.4 L (35.5-45.6) % Plt Count 454 H (140-440) K/mm3 - Imaging and Cardiology EKG: report reviewed, image reviewed
--- NOTE | 2020-10-20 11:41 | Discharge Summary ---
Providers - Providers Date of Admission: 10/15/20 10:58 Date of discharge: 10/20/20 Attending physician: PERRY HOLLIDAY 10/15/20 Consult to Cardiac Rehabilitation [CONS] Routine Reason For Exam: Phase 1 Consult to Cardiac Rehabilitation [CONS] Routine Reason For Exam: post pci 10/15/20 11:54 Consult to Dietitian/Nutrition [CONS] Routine Physician Instructions: Reason For Exam: Reason for Consult: Diet education 10/15/20 15:40 Consult to Dietitian/Nutrition [CONS] Routine Physician Instructions: Reason For Exam: Reason for Consult: Poor oral intake 10/17/20 15:52 Occupational Therapy Evaluate and Treat [CONS] Routine Comment: Reason For Exam: Debility Physical Therapy Evaluation and Treat [CONS] Routine Comment: Reason For Exam: Debility Primary care physician: NUNO BAUTISTA Hospitalization Reason for admission: STEMI Condition: Serious Hospital course: This is a 70-year-old male with lung cancer and tobacco abuse who presented to the emergency department on 10/15 with complaints of chest pain. Upon presentation patient was hypotensive and bradycardic requiring pacing and shortly after developed ventricular fibrillation requiring cardioversion and further work-up showed anterior/inferior ST elevation VT. Patient was found to have percent stenosis to right MCA and severe left main artery stenosis. Cardiology was consulted and patient underwent successful PCI to the right coronary artery with deployment of a MONA. Admission and discharge diagnoses along with hospital course below: STEMI -Presented hypotensive and bradycardic requiring pacing then developed ventricular fibrillation requiring cardioversion -ECG showed inferior/anterior ST elevation -Left heart cath revealed severe left main and right coronary artery 100% stenosis -S/p PCI with drug-eluting stent -Beta-annalisa, antiplatelet, antilipid therapy Ventricular fibrillation -Noted in the [employer] -S/p cardioversion Lung cancer hyponatremia -Trend BMP Peripheral vascular disease -Statin therapy -Unknown possible surgical intervention cardiology to decide regarding percutaneous revascularization Tobacco abuse -Tobacco cessation counseling DVT/GI prophylaxis -Protonix, SCDs to bilateral lower extremities while in bed 10/16: Overnight patient had a run of SVT for which the patient spontaneously reverted back to sinus rhythm and did not require intervention. This morning patient is confused and intermittently following commands therefore a CT head will be obtained for further investigation. His confusion may be related to his hyponatremia. Possible transfer to floor once cleared by cardiology. 10/17: Echocardiogram reveals left ventricular systolic function moderately decreased with EF of 35 to 40%. Mild concentric left ventricular hypertrophy. Continue medical therapy for coronary artery disease including DAPT with Plavix and aspirin. Continue metoprolol for suppression of paroxysmal supraventricular tachycardia. 10/18: Continue aspirin and Plavix. Continue Lipitor. Metoprolol 50 mg every 8 hours per cardiology recommendations. 10/19: Patient was successfully treated with primary angioplasty of the mid right coronary artery for acute inferior STEMI. He has a secondary lesion, a severe stenosis of the distal left main which will require further revascularization. Continue aspirin, Plavix, Lipitor and metoprolol. 10/20: Cardiology reports patient will proceed to percutaneous options for revascularization in the early outpatient setting at [place]. Patient is stable for discharge on optimal medical therapy. Continue aspirin, Plavix, Lipitor and metoprolol. PT evaluation recommends home health PT. Dedicated discharge time 35 minutes. Disposition: [id number] HOME UNDER HOME [facility] Final Discharge Diagnosis (Prints w/discharge instructions): ST elevation myocardial infarction, SVT, peripheral vascular disease, lung cancer, tobacco abuse - Discharge Diagnoses (1) Lung cancer Status: Acute (2) Peripheral vascular disease Status: Acute (3) STEMI (ST elevation myocardial infarction) Status: Acute (4) SVT (supraventricular tachycardia) Status: Acute (5) Tobacco use Status: Acute Core Measure Documentation - Palliative Care Palliative Care/ Comfort Measures: Not Applicable - Core Measures Any of the following diagnoses?: none Exam - Constitutional Vitals: Temp Pulse Resp BP Pulse Ox 99.0 F 80 17 124/73 94 10/20/20 03:35 10/20/20 05:21 10/20/20 03:35 10/20/20 05:21 10/20/20 03:35 General appearance: Present: no acute distress, well-nourished - EENT Eyes: Present: PERRL ENT: hearing intact, clear oral mucosa - Neck Neck: Present: supple, normal ROM - Respiratory Respiratory effort: normal Respiratory: bilateral: CTA - Cardiovascular Heart Sounds: Present: S1 & S2. Absent: rub, click - Extremities Extremities: pulses symmetrical, No edema Peripheral Pulses: within normal limits - Abdominal General gastrointestinal: Present: soft, non-tender, non-distended, normal bowel sounds Male genitourinary: Present: normal - Integumentary Integumentary: Present: clear, warm, dry - Musculoskeletal Musculoskeletal: gait normal, strength equal bilaterally - Psychiatric Psychiatric: appropriate mood/affect, intact judgment & insight - Neurologic Neurologic: CNII-XII intact, moves all extremities Plan Activity: advance as tolerated Weight Bearing Status: Weight Bear as Tolerated Diet: low fat, low cholesterol, low salt Additional Instructions: Discharge only after [facility] has called with appointment date and time for follow-up with CT surgery Follow up with: NUNO BAUTISTA MD [Primary Care Provider] - 3-5 Days MAURICIO HANDLEY MD [Staff Physician] - 7 Days Prescriptions: Aspirin EC [Halfprin EC] 81 mg PO QDAY #30 tablet. ISOSORBIDE MONOnitrate [Imdur ER] 30 mg PO QDAY #30 tablet AtorvaSTATin [Lipitor] 80 mg PO QHS #30 tablet Metoprolol [Lopressor TAB] 50 mg PO Q8H #90 tablet Melatonin [Melatonin 5MG TAB] 5 mg PO QHS PRN #30 tablet PRN Reason: Sleep Clopidogrel [Plavix] 75 mg PO QHS #30 tablet
[2020-10-20 12:36] VITALS: BP 147/83
== END 2020-10-20 19:31 | disposition home health service (06) | DRG 280 ==
LOC: ED 09:28 → CC1 10:58 → IMCU 10-16 19:30 → 4A 10-19 15:51
PROVIDERS: ADMIT Internal Medicine; ATTEND Hospitalist
DX: I21.19 ST elevation (STEMI) myocardial infarction involving other coronary artery of inferior wall (principal); I49.01 Ventricular fibrillation; E87.1 Hypo-osmolality and hyponatremia; F17.200 Nicotine dependence, unspecified, uncomplicated; E11.51 Type 2 diabetes mellitus with diabetic peripheral angiopathy without gangrene; Z20.822 Contact with and (suspected) exposure to COVID-19; Z85.118 Personal history of other malignant neoplasm of bronchus and lung; Z71.6 Tobacco abuse counseling
CPT/HCPCS: 36415; 70450; 71045; 80048; 80061; 82140; 82550; 82553; 83880; 84484; 85014; 85018; 85025; 85049; 85520; 85610; 85730; 87116; 93005; 93306; 96366; 96367; 96374; 96375; 96376; 99406; G0378; A9270-GY; J0360; J0461; J1630; J1644; J2060; J2250; J2270; J2405; J3010; J7030; J7040; U0003

== ENCOUNTER 2020-10-22 15:44 | Inpatient (IN) | payer MEDICARE, OTHER ==
[2020-10-22] MEDS ORDERED: ASPIRIN 325 MG TAB PO ONE ×2 (15:54→23:15)
--- NOTE | 2020-10-22 16:05 | Event Note ---
ED Screening Note ED Screening Note: Patient presents for chest pain, shortness of breath, generalized weakness, no appetite and is being released from the hospital on He was admitted for a STEMI and had a stent placement by cardiology He denies any fever, nausea, vomiting, cough, leg swelling This initial assessment/diagnostic orders/clinical plan/treatment(s) is/are subject to change based on patients health status, clinical progression and re- assessment by fellow clinical providers in the ED. Further treatment and workup at subsequent clinical providers discretion. Patient/guardian urged not to elope from the ED as their condition may be serious if not clinically assessed and managed. Initial orders include: Chest pain protocol Main ED eval
--- NOTE | 2020-10-22 16:29 | XRay Report ---
CHEST 2 VIEWS INDICATION: CP WITH SOB. COMPARISON: FINDINGS: Support devices: Central venous line has tip in the superior vena cava Heart: Within normal limits. Tortuosity thoracic aorta is noted. Lungs: Increased density right upper lobe, etiology unclear No acute air space or interstitial diseas e. Pleura: No significant pleural effusion. No pneumothorax. Additional findings: None. IMPRESSION: 1. Questionable right upper lobe mass, recommend CT for further evaluation Signer Name: Santiago Mazariegos MD Signed: 10/22/2020 4:24 PM Workstation Name: [id number]
[2020-10-22 16:59] LABS: Hematocrit 26.8 % (35.5-45.6); Mean Corpuscular HGB Conc 33 % (32-34); Mean Corpuscular Volume 75 fl (84-94); Platelet Count 463 K/mm3 (140-440); Red Blood Count 3.58 M/mm3 (3.65-5.03); Red Cell Distribution Width 15.2 % (13.2-15.2)
[2020-10-22 17:15] LABS: Albumin 3.6 g/dL (3.9-5); Calcium 8.3 mg/dL (8.4-10.2)
--- NOTE | 2020-10-22 17:19 | Emergency Department Report ---
ED General Adult HPI - General Chief complaint: Chest Pain Stated complaint: CHEST PAIN/DIAERRHA Time Seen by Provider: 10/22/20 16:03 Source: patient Mode of arrival: Wheelchair Limitations: Other - History of Present Illness Initial comments: Patient is 71 years old male with history of hypertension and recent STEMI. Patient was discharged 1 week ago for anterior inferior STEMI and stent placement. Patient presented to the ER today complaining of generalized weakness, mild shortness of breath and left flank pain and increased urinary frequency. Patient stated that he does not have any appetite to eat. Patient denied any fever or chills. No cough. -: days(s) (3) - Related Data Previous Rx's Medication Instructions Recorded Last Taken Type Aspirin EC [Halfprin EC] 81 mg PO QDAY #30 tablet. 10/20/20 Unknown Rx AtorvaSTATin [Lipitor] 80 mg PO QHS #30 tablet 10/20/20 Unknown Rx Clopidogrel [Plavix] 75 mg PO QHS #30 tablet 10/20/20 Unknown Rx ISOSORBIDE MONOnitrate [Imdur ER] 30 mg PO QDAY #30 tablet 10/20/20 Unknown Rx Melatonin [Melatonin 5MG TAB] 5 mg PO QHS PRN #30 tablet 10/20/20 Unknown Rx Metoprolol [Lopressor TAB] 50 mg PO Q8H #90 tablet 10/20/20 Unknown Rx Allergies Allergy/AdvReac Type Severity Reaction Status Date / Time No Known Allergies Allergy Verified 10/22/20 15:47 ED Review of Systems ROS: Stated complaint: CHEST PAIN/DIAERRHA Other details as noted in HPI Comment: All other systems reviewed and negative Constitutional: denies: chills, fever Respiratory: shortness of breath. denies: cough, orthopnea Cardiovascular: dyspnea on exertion, orthopnea, paroxysmal nocturnal dyspnea. denies: chest pain, palpitations Gastrointestinal: abdominal pain, nausea. denies: vomiting, diarrhea, constipation, hematemesis, melena, hematochezia Genitourinary: frequency. denies: dysuria, hematuria Musculoskeletal: denies: back pain Neurological: weakness. denies: headache, numbness, paresthesias, confusion, abnormal gait ED Past Medical Hx - Past Medical History Hx Hypertension: Yes Hx Congestive Heart Failure: No Hx Diabetes: No Hx Asthma: No Hx COPD: No Hx HIV: No - Surgical History Additional Surgical History: Unknown - Social History Smoking Status: Never Smoker Substance Use Type: None - Medications Home Medications: Home Medications Medication Instructions Recorded Confirmed Last Taken Type Aspirin EC [Halfprin EC] 81 mg PO QDAY #30 tablet. 10/20/20 Unknown Rx AtorvaSTATin [Lipitor] 80 mg PO QHS #30 tablet 10/20/20 Unknown Rx Clopidogrel [Plavix] 75 mg PO QHS #30 tablet 10/20/20 Unknown Rx ISOSORBIDE MONOnitrate [Imdur ER] 30 mg PO QDAY #30 tablet 10/20/20 Unknown Rx Melatonin [Melatonin 5MG TAB] 5 mg PO QHS PRN #30 tablet 10/20/20 Unknown Rx Metoprolol [Lopressor TAB] 50 mg PO Q8H #90 tablet 10/20/20 Unknown Rx ED Physical Exam - General Limitations: Other General appearance: alert, in no apparent distress - Head Head exam: Present: atraumatic, normocephalic, normal inspection - Eye Eye exam: Present: normal appearance - ENT ENT exam: Present: normal exam, normal orophraynx, mucous membranes moist - Neck Neck exam: Present: normal inspection, full ROM. Absent: tenderness, meningismus - Respiratory Respiratory exam: Present: normal lung sounds bilaterally - Cardiovascular Cardiovascular Exam: Present: tachycardia - GI/Abdominal GI/Abdominal exam: Present: soft, normal bowel sounds. Absent: distended, tenderness, guarding, rebound, rigid, organomegaly, mass, bruit, pulsatile mass, hernia - Extremities Exam Extremities exam: Present: full ROM, normal capillary refill, pedal edema. Absent: calf tenderness - Back Exam Back exam: Present: normal inspection, full ROM, CVA tenderness (L). Absent: CVA tenderness (R), muscle spasm, paraspinal tenderness, vertebral tenderness - Neurological Exam Neurological exam: Present: alert, oriented X3, CN II-XII intact - Skin Skin exam: Present: warm, intact, normal color ED Course Vital Signs 10/22/20 10/22/20 10/22/20 15:47 17:03 17:16 Temperature 98.0 F Pulse Rate 90 95 H Respiratory 20 18 Rate Blood Pressure 150/87 147/97 147/97 O2 Sat by Pulse 96 99 Oximetry 10/22/20 10/22/20 10/22/20 17:30 17:34 17:46 Temperature Pulse Rate 81 79 Respiratory 17 18 18 Rate Blood Pressure 147/97 150/84 O2 Sat by Pulse 97 98 98 Oximetry 10/22/20 10/22/20 10/22/20 18:00 18:16 18:30 Temperature Pulse Rate 80 79 78 Respiratory 18 18 20 Rate Blood Pressure 150/84 157/90 O2 Sat by Pulse 100 99 99 Oximetry 10/22/20 10/22/20 18:46 19:00 Temperature Pulse Rate 78 83 Respiratory 17 17 Rate Blood Pressure 167/89 167/89 O2 Sat by Pulse 99 99 Oximetry ED Medical Decision Making - Lab Data Result diagrams: 10/22/20 16:24 10/22/20 16:24 - EKG Data -: EKG Interpreted by Me Rate: normal - EKG Data Interpretation: no acute changes - Radiology Data Radiology results: report reviewed - Medical Decision Making Patient is 71 years old male with history of hypertension and recent STEMI. Patient was discharged 1 week ago for anterior inferior STEMI and stent placement. Patient presented to the ER today complaining of generalized weakness, mild shortness of breath and left flank pain and increased urinary frequency. Patient stated that he does not have any appetite to eat. Patient denied any fever or chills. No cough. Chest x-ray showed an abnormal mass. CT chest without contrast showed right upper lobe atelectasis most likely secondary to endobronchial obstruction. I discussed the patient with Dr. Hanson. advised to start start patient on Levaquin for the obstruction. Dr. Gabriel will follow up with the patient for possible bronchoscopy. Patient troponin is slightly elevated at 0.13 however patient troponin before he left the hospital was 3. Patient still denying any chest pain only complaining of mild shortness of breath. Geiger catheter placed and patient felt relieved. I discussed the patient with , he agreed to admit the patient to medical service for further management. Critical Care Time: Yes Critical care time in (mins) excluding proc time.: 30 Critical care attestation.: If time is entered above; I have spent that time in minutes in the direct care of this critically ill patient, excluding procedure time. ED Disposition Clinical Impression: Shortness of breath, Lung mass, Acute retention of urine, Elevated troponin Disposition: OP ADMIT IP TO THIS HOSP Is pt being admited?: Yes Condition: Stable Referrals: PRIMARY CARE, [Primary Care Provider] - 3-5 Days
[2020-10-22 17:21] LABS: INR 1.04 (0.87-1.13)
[2020-10-22 17:22] LABS: Partial Thromboplastin Time 28.8 Sec. (24.2-36.6)
[2020-10-22 17:47] LABS: Band Neutrophils # (Manual) 0.3 K/mm3; Hypochromasia 1+; Total Cells Counted 100
[2020-10-22 17:48] LABS: Platelet Clumps Rare
[2020-10-22 17:49] LABS: Anisocytosis RARE; Large Platelets Rare; Platelet Estimate Consistent w Auto
--- NOTE | 2020-10-22 19:55 | Cat Scan Report ---
CT abdomen pelvis wo con, CT chest wo con INDICATION / CLINICAL INFORMATION: ABDOMINAL PAIN. TECHNIQUE: Axial CT imaging of chest, abdomen and pelvis was obtained without contrast. Coronal and sagittal ref ormatted imaging obtained and reviewed. All CT scans at this location are performed using CT dose re duction for ALARA by means of automated exposure control. COMPARISON: Chest radiograph earlier today. Chest radiograph interpretation raised concern for the possibility of right upper lobe lung mass. FINDINGS: CT chest without contrast is abnormal. There is partial atelectasis of the right upper lobe. The atel ectatic lung does contain a few bronchograms but the appearance is certainly worrisome for possible e ndobronchial obstruction due to malignancy. On this noncontrast exam I do not see evidence of hilar o r mediastinal adenopathy. The remainder of the mediastinum is unremarkable other than calcific plaque within the thoracic aorta and very small pericardial effusion. Heart size is normal. Coronary artery calcification is present. There is parenchymal scarring in the right lung apex but no definitive pulmonary mass or suggestion o f pneumonia. Left lung is grossly clear. No pleural effusion in either hemithorax. CT abdomen without contrast does not demonstrate any acute finding of the liver, spleen, pancreas or adrenal glands. Gallbladder is grossly unremarkable. There is mild bilateral hydronephrosis. No obstructing lesion is noted with within either ureter and this may just be calyceal dilatation without obstruction. The urinary bladder is markedly distended. There is a mass arising from the upper pole of the right kidney measuring approximately 5 cm. It is u nclear if this is a cyst or solid mass. There is a large simple cyst arising from the left kidney lat erally measuring 5.6 cm. A few smaller cysts are seen scattered in both kidneys. There is moderate am ount of calcific plaque throughout the abdominal aorta and common iliac arteries. The distal abdomina l aorta is mildly ectatic as are both common iliac arteries. There is severe calcified plaque throug hout the external iliac arteries bilaterally suggesting severe stenosis. CT pelvis without contrast demonstrates mildly enlarged prostate gland. As noted above the urinary bl adder is prominently distended. No pelvic mass, free fluid, or focal inflammatory changes noted. There is gaseous distention of multiple loops of small and large bowel throughout the abdomen and pel vis but no evidence of mechanical obstruction or inflammatory change. The appendix is not confidently identified. Review of osseous structures demonstrates mild diffuse spondylytic change throughout the spine but no evidence of acute osseous abnormality. IMPRESSION: 1. Abnormal findings within the right upper lobe of the lung. There is partial right upper lobe apica l atelectasis within appearance worrisome for endobronchial obstruction. Bronchoscopy is suggested. 2. There are bilateral renal cysts. However there is 5 cm mass arising from the right upper pole whic h is nonspecific. Recommend renal ultrasound to determine whether this is a cyst or solid mass. 3. There is mild bilateral hydronephrosis. I believe this is more than likely due to markedly distend ed urinary bladder rather than true obstruction. 4. Large amount of calcified plaque is seen throughout the abdominal aorta, common iliac arteries, an d external iliac arteries bilaterally. I suspect there is significant stenosis in the external iliac arteries. 5. mild gaseous distention of both small and large bowel without evidence for mechanical obstruction. 6. mild prostatic enlargement with marked distention of the urinary bladder. Signer Name: Xena Gonzalez MD Signed: 10/22/2020 7:51 PM Workstation Name: [id number]
[2020-10-22 21:40] LABS: Bilirubin,Urine NEG (Negative); Blood,Urine MOD (Negative); Color,Urine Yellow (Yellow); Protein,Urine <15 mg/dL mg/dL (Negative); Urobilinogen,Urine < 2.0 mg/dL (<2.0)
[2020-10-22] MEDS ORDERED: ONDANSETRON 4 MG/2 ML INJ IV PRN (22:08)
[2020-10-22] MEDS ORDERED: MAGNESIUM HYDROXIDE (MOM) ORAL LIQD UDC PO PRN (22:08)
[2020-10-22] MEDS ORDERED: MORPHINE 2 MG/1 ML INJ IV PRN (22:08)
--- NOTE | 2020-10-22 22:18 | History and Physical Report ---
History of Present Illness Date of examination: 10/22/20 Date of admission: 10/22/2020 Chief complaint: Shortness of breath Generalized weakness History of present illness: 71-year-old male with known history of hypertension and recent STEMI presenting to the emergency room today complaining of generalized weakness, shortness of breath and increased urinary frequency. Patient was just discharged about a week ago for anterior inferior STEMI with stent placement. He denies any chest pain, no nausea vomiting, no fever or chills, no cough. Denies any sick contacts and no recent travel. Denies any contact with anyone with COVID-19. Upon arrival in the emergency room, patient was found to be in urinary retention and a Geiger catheter was placed. Work-up in the emergency room today reveals: Chest x-ray-. Questionable right upper lobe mass, recommend CT for further evaluation . CT scan of the chest reveals: 1. Abnormal findings within the right upper lobe o f the lung. There is partial right upper lobe apical atelectasis within appearance worrisome for endobronchial obstruction. Bronchoscopy is suggested. 2. There are bilateral renal cysts. However there is 5 cm mass arising from the right upper pole which is nonspecific. Recommend renal ultrasound to determine whether this is a cyst or solid mass. 3. There is mild bilateral hydronephrosis. I believe this is more than likely due to markedly distended urinary bladder rather than true obstruction. 4. Large amount of calcified plaque is seen throughout the abdominal aorta, common iliac arteries, and external iliac arteries bilaterally. I suspect there is significant stenosis in the external iliac arteries. 5. mild gaseous distention of both small and large bowel without evidence for mechanical obstruction. 6. mild prostatic enlargement with marked distention of the urinary bladder. Stock Broker has been consulted by the ER physician. Patient started on empiric IV antibiotics for possible pneumonia Past History Past Medical History: CAD, hypertension, hyperlipidemia Past Surgical History: Other (Recent cardiac Cath.) Social history: no significant social history Family history: no significant family history Medications and Allergies Allergies Allergy/AdvReac Type Severity Reaction Status Date / Time No Known Allergies Allergy Verified 10/22/20 15:47 Home Medications Medication Instructions Recorded Confirmed Last Taken Type Aspirin EC [Halfprin EC] 81 mg PO QDAY #30 tablet 10/20/20 Unknown Rx AtorvaSTATin [Lipitor] 80 mg PO QHS #30 tablet 10/20/20 Unknown Rx Clopidogrel [Plavix] 75 mg PO QHS #30 tablet 10/20/20 Unknown Rx ISOSORBIDE MONOnitrate [Imdur ER] 30 mg PO QDAY #30 tablet 10/20/20 Unknown Rx Melatonin [Melatonin 5MG TAB] 5 mg PO QHS PRN #30 tablet 10/20/20 Unknown Rx Metoprolol [Lopressor TAB] 50 mg PO Q8H #90 tablet 10/20/20 Unknown Rx Review of Systems Constitutional: no fever, no chills Ears, nose, mouth and throat: no nasal congestion, no sore throat Cardiovascular: no chest pain, no palpitations Respiratory: shortness of breath, no cough Gastrointestinal: no abdominal pain, no nausea, no vomiting, no diarrhea Genitourinary Male: no dysuria, no hematuria, no flank pain Musculoskeletal: no neck pain, no low back pain Integumentary: no rash, no pruritis Neurological: no headaches, no confusion Exam - Constitutional Vitals: Temp Pulse Resp BP Pulse Ox 98.0 F 83 17 167/89 99 10/22/20 15:47 10/22/20 19:00 10/22/20 19:00 10/22/20 19:00 10/22/20 19:00 General appearance: Present: no acute distress, well-nourished - EENT Eyes: Present: PERRL, EOM intact. Absent: scleral icterus ENT: hearing intact, clear oral mucosa, dentition normal - Neck Neck: Present: supple, normal ROM - Respiratory Respiratory effort: normal Respiratory: right: diminished - Cardiovascular Rhythm: regular Heart Sounds: Present: S1 & S2. Absent: gallop, systolic murmur, diastolic murmur, rub, click - Extremities Extremities: no ischemia, pulses intact, pulses symmetrical, No edema, normal temperature, normal color, Full ROM Peripheral Pulses: within normal limits - Abdominal General gastrointestinal: Present: soft, non-tender, non-distended, normal bowel sounds. Absent: mass - Integumentary Integumentary: Present: clear, warm, dry. Absent: rash - Musculoskeletal Musculoskeletal: strength equal bilaterally - Psychiatric Psychiatric: appropriate mood/affect, intact judgment & insight, memory intact, cooperative - Neurologic Neurologic: CNII-XII intact, no focal deficits, moves all extremities HEART Score - HEART Score Troponin: Troponin T 0.130 ng/mL (0.00-0.029) H* 10/22/20 19:24 Results - Labs CBC & Chem 7: 10/22/20 16:24 10/22/20 16:24 Labs: Abnormal lab results 10/22/20 10/22/20 10/22/20 Range/Units 16:24 16:24 16:24 WBC 11.6 H (4.5-11.0) K/mm3 RBC 3.58 L (3.65-5.03) M/mm3 Hgb 9.0 L (11.8-15.2) gm/dl Hct 26.8 L (35.5-45.6) % MCV 75 L (84-94) fl MCH 25 L (28-32) pg Plt Count 463 H (140-440) K/mm3 Seg Neuts % (Manual) 84.0 H (40.0-70.0) % Lymphocytes % (Manual) 5.0 L (13.4-35.0) % Seg Neutrophils # Man 9.7 H (1.8-7.7) K/mm3 Lymphocytes # (Manual) 0.6 L (1.2-5.4) K/mm3 Sodium 134 L (137-145) mmol/L Carbon Dioxide 18 L (22-30) mmol/L BUN 41 H (9-20) mg/dL Creatinine 2.1 H (0.8-1.3) mg/dL Calcium 8.3 L (8.4-10.2) mg/dL Troponin T 0.139 H* (0.00-0.029) ng/mL NT-Pro-B Natriuret Pep 1005 H (0-900) pg/mL Albumin 3.6 L (3.9-5) g/dL Urine WBC (Auto) (0.0-6.0) /HPF 10/22/20 10/22/20 Range/Units 19:24 21:20 WBC (4.5-11.0) K/mm3 RBC (3.65-5.03) M/mm3 Hgb (11.8-15.2) gm/dl Hct (35.5-45.6) % MCV (84-94) fl MCH (28-32) pg Plt Count (140-440) K/mm3 Seg Neuts % (Manual) (40.0-70.0) % Lymphocytes % (Manual) (13.4-35.0) % Seg Neutrophils # Man (1.8-7.7) K/mm3 Lymphocytes # (Manual) (1.2-5.4) K/mm3 Sodium (137-145) mmol/L Carbon Dioxide (22-30) mmol/L BUN (9-20) mg/dL Creatinine (0.8-1.3) mg/dL Calcium (8.4-10.2) mg/dL Troponin T 0.130 H* (0.00-0.029) ng/mL NT-Pro-B Natriuret Pep (0-900) pg/mL Albumin (3.9-5) g/dL Urine WBC (Auto) 9.0 H (0.0-6.0) /HPF Assessment and Plan - Patient Problems (1) Pneumonia Current Visit: Yes Status: Acute Plan to address problem: Patient placed on empiric IV antibiotics. Await pulmonology evaluation for right upper lobe mass. (2) Hypertension Current Visit: Yes Status: Acute Plan to address problem: We will resume routine home medications and monitor vital signs closely. (3) Acute retention of urine Current Visit: Yes Status: Acute Plan to address problem: CT of the abdomen and pelvis as revealed mild prostatic enlargement with marked distention of the urinary bladder. Patient has had Geiger catheter placed. (4) Lung mass Current Visit: Yes Status: Acute Plan to address problem: Patient awaits evaluation by technology lead for possible bronchoscopy. (5) VIRGILIO (acute kidney injury) Current Visit: Yes Status: Acute Plan to address problem: Possibly secondary to obstructive uropathy. Patient has had Geiger catheter placed. We will place consult to nephrology for evaluation. Patient will also require urology evaluation. (6) Coronary artery disease Current Visit: Yes Status: Acute Plan to address problem: With history of recent STEMI and stent placement. Troponin currently elevated. No chest pain We will continue routine home medications. We will request cardiology follow-up. (7) DVT prophylaxis Current Visit: Yes Status: Acute Plan to address problem: Patient placed on anticoagulation with heparin (8) Full code status Current Visit: Yes Status: Acute Plan to address problem: Patient is full code.
[2020-10-22] MEDS: SODIUM CHLORIDE 0.9% 1000 ML 1,000 ML IV SCH (23:43)
[2020-10-23] MEDS ORDERED: MELATONIN 5 MG TAB PO PRN (03:06)
[2020-10-23] MEDS: METOPROLOL TARTRATE 50 MG TAB PO SCH ×3 (07:06→23:00)
[2020-10-23] MEDS: HEPARIN 5,000 UNIT/1 ML VIAL SUB-Q SCH ×3 (07:06→22:50)
[2020-10-23 08:14] LABS: INR 1.1 (0.87-1.13)
[2020-10-23 08:17] LABS: BUN/Creatinine Ratio 21; Blood Urea Nitrogen 29 mg/dL (9-20); Calcium 8.2 mg/dL (8.4-10.2); Hemolysis Index 0
--- NOTE | 2020-10-23 08:29 | Consultation ---
History of Present Illness Consult date: 10/23/20 Requesting physician: EB BIANCHI Reason for consult: abnormal CXR/CT History of present illness: 70 y/o male with recent STEMI and intervention by cardiology over 1 week ago presents with weakness shortness of breath and fatigue. On last admission had a CXR that was concerning for abnormality in the right upper lobe. Same present on this CXR so CT of chest was done. Shows atelectasis of the right upper lobe with some apical scarring. Otherwise unremarkable. No real explanation for atelectasis so pulmonary was consulted. Patient is satting 97% on room air. After discussion with patient, lung CA known and he is followed at [facility]. Will have patient follow up with them with his images from here. No need for bronch at this time. Past History Past Medical History: CAD, hypertension, hyperlipidemia Past Surgical History: Other (Recent cardiac Cath.) Social history: no significant social history Family history: no significant family history Medications and Allergies Allergies Allergy/AdvReac Type Severity Reaction Status Date / Time No Known Allergies Allergy Verified 10/22/20 15:47 Home Medications Medication Instructions Recorded Confirmed Last Taken Type Aspirin EC [Halfprin EC] 81 mg PO QDAY #30 tablet. 10/20/20 Unknown Rx AtorvaSTATin [Lipitor] 80 mg PO QHS #30 tablet 10/20/20 Unknown Rx Clopidogrel [Plavix] 75 mg PO QHS #30 tablet 10/20/20 Unknown Rx ISOSORBIDE MONOnitrate [Imdur ER] 30 mg PO QDAY #30 tablet 10/20/20 Unknown Rx Melatonin [Melatonin 5MG TAB] 5 mg PO QHS PRN #30 tablet 10/20/20 Unknown Rx Metoprolol [Lopressor TAB] 50 mg PO Q8H #90 tablet 10/20/20 Unknown Rx levoFLOXacin [Levaquin TAB] 500 mg PO QDAY #3 tablet 10/24/20 Unknown Rx Active Meds: Active Medications Acetaminophen (Acetaminophen 325 Mg Tab) 650 mg PO Q4H PRN PRN Reason: Pain MILD(1-3)/Fever >100.5/PHAM Aspirin (Aspirin Ec 81 Mg Tab) 81 mg PO QDAY [facility] Atorvastatin Calcium (Atorvastatin 40 Mg Tab) 80 mg PO QHS [facility] Clopidogrel Bisulfate (Clopidogrel 75 Mg Tab) 75 mg PO QHS [facility] Heparin Sodium (Porcine) (Heparin 5,000 Unit/1 Ml Vial) 5,000 unit SUB-Q Q8HR [facility] Last Admin: 10/23/20 07:06 Dose: 5,000 unit Documented by: Sodium Chloride (Nacl 0.9% 1000 Ml) 1,000 mls @ 75 mls/hr IV DIRECT [facility] Last Admin: 10/22/20 23:43 Dose: 75 mls/hr Documented by: Levofloxacin/Dextrose (Levaquin 750mg/150ml) 750 mg in 150 mls @ 100 mls/hr IV Q48HR [facility]; Protocol Isosorbide Mononitrate (Isosorbide Mononitrate Er 30 Mg Tab) 30 mg PO QDAY [facility] Magnesium Hydroxide (Magnesium Hydroxide (Mom) Oral Liqd Udc) 30 ml PO Q4H PRN PRN Reason: Constipation Melatonin (Melatonin 5 Mg Tab) 5 mg PO QHS PRN PRN Reason: Sleep Metoprolol Tartrate (Metoprolol Tartrate 50 Mg Tab) 50 mg PO Q8HR [facility] Last Admin: 10/23/20 07:06 Dose: 50 mg Documented by: Morphine Sulfate (Morphine 2 Mg/1 Ml Inj) 2 mg IV Q4H PRN PRN Reason: Pain, Moderate (4-6) Ondansetron HCl (Ondansetron 4 Mg/2 Ml Inj) 4 mg IV Q8H PRN PRN Reason: Nausea And Vomiting Sodium Chloride (Sodium Chloride 0.9% 10 Ml Flush Syringe) 10 ml IV BID GEOVANNI Sodium Chloride (Sodium Chloride 0.9% 10 Ml Flush Syringe) 10 ml IV PRN PRN PRN Reason: LINE FLUSH Physical Examination Vital signs: Vital Signs Temp Pulse Resp BP Pulse Ox 98.0 F 90 20 150/87 96 10/22/20 15:47 10/22/20 15:47 10/22/20 15:47 10/22/20 15:47 10/22/20 15:47 Results - Laboratory Findings CBC and BMP: 10/24/20 07:47 10/24/20 07:47 PT/INR, D-dimer PT 14.0 Sec. (12.2-14.9) 10/23/20 07:27 INR 1.10 (0.87-1.13) 10/23/20 07:27 Abnormal lab findings: Abnormal Labs 10/22/20 10/22/20 10/22/20 16:24 16:24 16:24 WBC 11.6 H RBC 3.58 L Hgb 9.0 L Hct 26.8 L MCV 75 L MCH 25 L Plt Count 463 H Seg Neuts % (Manual) 84.0 H Lymphocytes % (Manual) 5.0 L Seg Neutrophils # Man 9.7 H Lymphocytes # (Manual) 0.6 L Sodium 134 L Carbon Dioxide 18 L BUN 41 H Creatinine 2.1 H Calcium 8.3 L Troponin T 0.139 H* NT-Pro-B Natriuret Pep 1005 H Albumin 3.6 L Urine WBC (Auto) 10/22/20 10/22/20 10/23/20 19:24 21:20 07:27 WBC RBC Hgb Hct MCV MCH Plt Count Seg Neuts % (Manual) Lymphocytes % (Manual) Seg Neutrophils # Man Lymphocytes # (Manual) Sodium 135 L Carbon Dioxide 19 L BUN 29 H Creatinine 1.4 H Calcium 8.2 L Troponin T 0.130 H* NT-Pro-B Natriuret Pep Albumin Urine WBC (Auto) 9.0 H Assessment and Plan 70 y/o male with atelectasis of right upper lobe, etiology unknown. 1. Agree that patient needs bronchoscopy. However on asa and would need to hold for at least 7 days before elective biopsy. Maybe longer pending cardiology evaluation. Called to floor and asked them to hold asa starting this am. 2. Please ask cardiology to see patient and make sure no objection to bronch. 3. Thank you for consult, will continue to follow.
--- NOTE | 2020-10-23 08:59 | Progress Note ---
Assessment and Plan Assessment and plan: Right apical atelectasis. Patient reportedly has a history of lung CA. Pulmonary to perform bronchoscopy. Lung CA. STEMI -Patient with recent hospitalization last week where patient presented with hyp otension and bradycardia requiring pacing then developed ventricular fibrillation requiring cardioversion -ECG showed inferior/anterior ST elevation -Left heart cath revealed severe left main and right coronary artery 100% stenosis -S/p PCI with drug-eluting stent -Beta-annalisa, antiplatelet, antilipid therapy Ventricular fibrillation -Noted in the Investment Underwriter on previous admission -S/p cardioversion Peripheral vascular disease Tobacco abuse -Tobacco cessation counseling History Interval history: No new issues overnight. Hospitalist Physical - Constitutional Vitals: Temp Pulse Resp BP Pulse Ox 98.1 F 105 H 16 128/67 98 10/23/20 03:16 10/23/20 07:06 10/23/20 03:16 10/23/20 07:06 10/23/20 03:16 General appearance: Present: no acute distress, well-nourished - EENT Eyes: Present: PERRL, EOM intact ENT: hearing intact, clear oral mucosa, dentition normal - Neck Neck: Present: supple, normal ROM - Respiratory Respiratory effort: normal Respiratory: bilateral: CTA - Cardiovascular Rhythm: regular Heart Sounds: Present: S1 & S2. Absent: gallop, rub - Extremities Extremities: no ischemia, No edema, Full ROM - Abdominal General gastrointestinal: soft, non-tender, non-distended, normal bowel sounds - Integumentary Integumentary: Present: clear, warm, dry - Neurologic Neurologic: CNII-XII intact, moves all extremities HEART Score - HEART Score Troponin: Troponin T 0.130 ng/mL (0.00-0.029) H* 10/22/20 19:24 Results - Labs CBC & Chem 7: 10/22/20 16:24 10/23/20 07:27 Labs: Laboratory Last Values WBC 11.6 K/mm3 (4.5-11.0) H 10/22/20 16:24 RBC 3.58 M/mm3 (3.65-5.03) L 10/22/20 16:24 Hgb 9.0 gm/dl (11.8-15.2) L 10/22/20 16:24 Hct 26.8 % (35.5-45.6) L 10/22/20 16:24 MCV 75 fl (84-94) L 10/22/20 16:24 MCH 25 pg (28-32) L 10/22/20 16:24 MCHC 33 % (32-34) 10/22/20 16:24 RDW 15.2 % (13.2-15.2) 10/22/20 16:24 Plt Count 463 K/mm3 (140-440) H 10/22/20 16:24 Add Manual Diff Complete 10/22/20 16:24 Total Counted 100 10/22/20 16:24 Seg Neuts % (Manual) 84.0 % (40.0-70.0) H 10/22/20 16:24 Band Neutrophils % 3.0 % 10/22/20 16:24 Lymphocytes % (Manual) 5.0 % (13.4-35.0) L 10/22/20 16:24 Monocytes % (Manual) 5.0 % (0.0-7.3) 10/22/20 16:24 Eosinophils % (Manual) 1.0 % (0.0-4.3) 10/22/20 16:24 Metamyelocytes % 2.0 % 10/22/20 16:24 Nucleated RBC % Not Reportable 10/22/20 16:24 Seg Neutrophils # Man 9.7 K/mm3 (1.8-7.7) H 10/22/20 16:24 Band Neutrophils # 0.3 K/mm3 10/22/20 16:24 Lymphocytes # (Manual) 0.6 K/mm3 (1.2-5.4) L 10/22/20 16:24 Abs React Lymphs (Man) 0.0 K/mm3 10/22/20 16:24 Monocytes # (Manual) 0.6 K/mm3 (0.0-0.8) 10/22/20 16:24 Eosinophils # (Manual) 0.1 K/mm3 (0.0-0.4) 10/22/20 16:24 Basophils # (Manual) 0.0 K/mm3 (0.0-0.1) 10/22/20 16:24 Metamyelocytes # 0.2 K/mm3 10/22/20 16:24 Myelocytes # 0.0 K/mm3 10/22/20 16:24 Promyelocytes # 0.0 K/mm3 10/22/20 16:24 Blast Cells # 0.0 K/mm3 10/22/20 16:24 WBC Morphology Not Reportable 10/22/20 16:24 Hypersegmented Neuts Not Reportable 10/22/20 16:24 Hyposegmented Neuts Not Reportable 10/22/20 16:24 Hypogranular Neuts Not Reportable 10/22/20 16:24 Smudge Cells Not Reportable 10/22/20 16:24 Toxic Granulation Not Reportable 10/22/20 16:24 Toxic Vacuolation Not Reportable 10/22/20 16:24 Dohle Bodies Not Reportable 10/22/20 16:24 Pelger-Huet Anomaly Not Reportable 10/22/20 16:24 Rudy Rods Not Reportable 10/22/20 16:24 Platelet Estimate Consistent w auto 10/22/20 16:24 Clumped Platelets Rare 10/22/20 16:24 Plt Clumps, EDTA Not Reportable 10/22/20 16:24 Large Platelets Rare 10/22/20 16:24 Giant Platelets Not Reportable 10/22/20 16:24 Platelet Satelliting Not Reportable 10/22/20 16:24 Plt Morphology Comment Not Reportable 10/22/20 16:24 RBC Morphology Not Reportable 10/22/20 16:24 Dimorphic RBCs Not Reportable 10/22/20 16:24 Polychromasia Rare 10/22/20 16:24 Hypochromasia 1+ 10/22/20 16:24 Poikilocytosis Not Reportable 10/22/20 16:24 Anisocytosis Rare 10/22/20 16:24 Microcytosis Not Reportable 10/22/20 16:24 Macrocytosis Not Reportable 10/22/20 16:24 Spherocytes Not Reportable 10/22/20 16:24 Pappenheimer Bodies Not Reportable 10/22/20 16:24 Sickle Cells Not Reportable 10/22/20 16:24 Target Cells Not Reportable 10/22/20 16:24 Tear Drop Cells Not Reportable 10/22/20 16:24 Ovalocytes Not Reportable 10/22/20 16:24 Helmet Cells Not Reportable 10/22/20 16:24 Youssef-[place] Bodies Not Reportable 10/22/20 16:24 [place] Rings Not Reportable 10/22/20 16:24 Maritza Cells Not Reportable 10/22/20 16:24 Bite Cells Not Reportable 10/22/20 16:24 Crenated Cell Not Reportable 10/22/20 16:24 Elliptocytes Not Reportable 10/22/20 16:24 Acanthocytes (Spur) Not Reportable 10/22/20 16:24 Rouleaux Not Reportable 10/22/20 16:24 Hemoglobin C Crystals Not Reportable 10/22/20 16:24 Schistocytes Not Reportable 10/22/20 16:24 Malaria parasites Not Reportable 10/22/20 16:24 Waldo Bodies Not Reportable 10/22/20 16:24 Hem Pathologist Commnt No 10/22/20 16:24 PT 14.0 Sec. (12.2-14.9) 10/23/20 07:27 INR 1.10 (0.87-1.13) 10/23/20 07:27 APTT 28.8 Sec. (24.2-36.6) 10/22/20 16:24 Sodium 135 mmol/L (137-145) L 10/23/20 07:27 Potassium 4.4 mmol/L (3.6-5.0) 10/23/20 07:27 Chloride 104.4 mmol/L (98-107) 10/23/20 07:27 Carbon Dioxide 19 mmol/L (22-30) L 10/23/20 07:27 Anion Gap 16 mmol/L 10/23/20 07:27 BUN 29 mg/dL (9-20) H 10/23/20 07:27 Creatinine 1.4 mg/dL (0.8-1.3) H 10/23/20 07:27 Estimated GFR > 60 ml/min 10/23/20 07:27 BUN/Creatinine Ratio 21 % 10/23/20 07:27 Glucose 86 mg/dL (75-100) 10/23/20 07:27 Calcium 8.2 mg/dL (8.4-10.2) L 10/23/20 07:27 Total Bilirubin 0.50 mg/dL (0.1-1.2) 10/22/20 16:24 AST 34 units/L (5-40) 10/22/20 16:24 ALT 40 units/L (7-56) 10/22/20 16:24 Alkaline Phosphatase 91 units/L (35-129) 10/22/20 16:24 Troponin T 0.130 ng/mL (0.00-0.029) H* 10/22/20 19:24 NT-Pro-B Natriuret Pep 1005 pg/mL (0-900) H 10/22/20 16:24 Total Protein 7.6 g/dL (6.3-8.2) 10/22/20 16:24 Albumin 3.6 g/dL (3.9-5) L 10/22/20 16:24 Albumin/Globulin Ratio 0.9 % 10/22/20 16:24 Urine Color Yellow (Yellow) 10/22/20 21:20 Urine Turbidity Clear (Clear) 10/22/20 21:20 Urine pH 6.0 (5.0-7.0) 10/22/20 21:20 Ur Specific [place] 1.009 (1.003-1.030) 10/22/20 21:20 Urine Protein <15 mg/dl mg/dL (Negative) 10/22/20 21:20 Urine Glucose (UA) Neg mg/dL (Negative) 10/22/20 21:20 Urine Ketones Neg mg/dL (Negative) 10/22/20 21:20 Urine Blood Mod (Negative) 10/22/20 21:20 Urine Nitrite Neg (Negative) 10/22/20 21:20 Urine Bilirubin Neg (Negative) 10/22/20 21:20 Urine Urobilinogen < 2.0 mg/dL (<2.0) 10/22/20 21:20 Ur Leukocyte Esterase Mod (Negative) 10/22/20 21:20 Urine WBC (Auto) 9.0 /HPF (0.0-6.0) H 10/22/20 21:20 Urine RBC (Auto) 2.0 /HPF (0.0-6.0) 10/22/20 21:20 Microbiology: Microbiology 10/22/20 20:50 Peripheral/Venous Blood Culture - Preliminary Culture in Progress 10/22/20 20:40 Peripheral/Venous Blood Culture - Preliminary Culture in Progress Geiger/IV: Voiding Method Indwelling Catheter Active Medications - Current Medications Current Medications: Generic Name Dose Route Start Last Admin Trade Name Freq PRN Reason Stop Dose Admin Acetaminophen 650 mg 10/22/20 22:08 Acetaminophen 325 Mg Tab PO Q4H PRN Pain MILD(1-3)/Fever >100.5/PHAM Aspirin 81 mg 10/23/20 10:00 Aspirin Ec 81 Mg Tab PO QDAY [facility] Atorvastatin Calcium 80 mg 10/23/20 22:00 Atorvastatin 40 Mg Tab PO QHS [facility] Clopidogrel Bisulfate 75 mg 10/23/20 22:00 Clopidogrel 75 Mg Tab PO QHS [facility] Heparin Sodium (Porcine) 5,000 unit 10/23/20 06:00 10/23/20 07:06 Heparin 5,000 Unit/1 Ml Vial SUB-Q 5,000 unit Q8HR [facility] Administration Sodium Chloride 1,000 mls @ 75 mls/hr 10/22/20 22:15 10/22/20 23:43 Nacl 0.9% 1000 Ml IV 75 mls/hr DIRECT [facility] Administration Levofloxacin/Dextrose 750 mg in 150 mls @ 100 mls/hr 10/23/20 10:00 Levaquin 750mg/150ml IV Q48HR [facility] Protocol Isosorbide Mononitrate 30 mg 10/23/20 10:00 Isosorbide Mononitrate Er 30 Mg Tab PO QDAY [facility] Magnesium Hydroxide 30 ml 10/22/20 22:08 Magnesium Hydroxide (Mom) Oral Liqd Udc PO Q4H PRN Constipation Melatonin 5 mg 10/23/20 03:06 Melatonin 5 Mg Tab PO QHS PRN Sleep Metoprolol Tartrate 50 mg 10/23/20 04:00 10/23/20 07:06 Metoprolol Tartrate 50 Mg Tab PO 50 mg Q8HR [facility] Administration Morphine Sulfate 2 mg 10/22/20 22:08 Morphine 2 Mg/1 Ml Inj IV Q4H PRN Pain, Moderate (4-6) Ondansetron HCl 4 mg 10/22/20 22:08 Ondansetron 4 Mg/2 Ml Inj IV Q8H PRN Nausea And Vomiting Sodium Chloride 10 ml 10/23/20 10:00 Sodium Chloride 0.9% 10 Ml Flush Syringe IV BID [facility]ANNI Sodium Chloride 10 ml 10/22/20 22:08 Sodium Chloride 0.9% 10 Ml Flush Syringe IV PRN PRN LINE FLUSH
[2020-10-23] MEDS: ASPIRIN EC 81 MG TAB PO SCH ×2 (09:03→12:02)
[2020-10-23 09:07] LABS: Hematocrit 25.4 % (35.5-45.6); Hemoglobin 8.6 gm/dl (11.8-15.2); Mean Corpuscular HGB Conc 34 % (32-34); Mean Corpuscular Volume 74 fl (84-94); Platelet Count 417 K/mm3 (140-440); Red Blood Count 3.42 M/mm3 (3.65-5.03); Red Cell Distribution Width 15.2 % (13.2-15.2)
--- NOTE | 2020-10-23 09:08 | Consultation ---
History of Present Illness - Reason for Consult Consult date: 10/23/20 acute renal failure - History of Present Illness 70 y/o male with recent STEMI and intervention was admitted yesterday for worsening weakness shortness of breath and fatigue. On last admission had a CXR that was concerning for abnormality in the right upper lobe. Same present on this CXR so CT of chest was done. Shows atelectasis of the right upper lobe with some apical scarring. he was found to have abnormal renal function and nephrology consult was requested Past History Past Medical History: CAD, hypertension, hyperlipidemia Past Surgical History: Other (Recent cardiac Cath.) Social history: no significant social history Family history: no significant family history Medications and Allergies Allergies Allergy/AdvReac Type Severity Reaction Status Date / Time No Known Allergies Allergy Verified 10/22/20 15:47 Home Medications Medication Instructions Recorded Confirmed Last Taken Type Aspirin EC [Halfprin EC] 81 mg PO QDAY #30 tablet. 10/20/20 Unknown Rx AtorvaSTATin [Lipitor] 80 mg PO QHS #30 tablet 10/20/20 Unknown Rx Clopidogrel [Plavix] 75 mg PO QHS #30 tablet 10/20/20 Unknown Rx ISOSORBIDE MONOnitrate [Imdur ER] 30 mg PO QDAY #30 tablet 10/20/20 Unknown Rx Melatonin [Melatonin 5MG TAB] 5 mg PO QHS PRN #30 tablet 10/20/20 Unknown Rx Metoprolol [Lopressor TAB] 50 mg PO Q8H #90 tablet 10/20/20 Unknown Rx Active Meds: Active Medications Acetaminophen (Acetaminophen 325 Mg Tab) 650 mg PO Q4H PRN PRN Reason: Pain MILD(1-3)/Fever >100.5/PHAM Aspirin (Aspirin Ec 81 Mg Tab) 81 mg PO QDAY [facility] Last Admin: 10/23/20 09:03 Dose: Not Given Documented by: Atorvastatin Calcium (Atorvastatin 40 Mg Tab) 80 mg PO QHS GEOVANNI Clopidogrel Bisulfate (Clopidogrel 75 Mg Tab) 75 mg PO QHS [facility] Heparin Sodium (Porcine) (Heparin 5,000 Unit/1 Ml Vial) 5,000 unit SUB-Q Q8HR [facility] Last Admin: 10/23/20 07:06 Dose: 5,000 unit Documented by: Sodium Chloride (Nacl 0.9% 1000 Ml) 1,000 mls @ 75 mls/hr IV DIRECT [facility] Last Admin: 10/22/20 23:43 Dose: 75 mls/hr Documented by: Levofloxacin/Dextrose (Levaquin 750mg/150ml) 750 mg in 150 mls @ 100 mls/hr IV Q48HR [facility]; Protocol Last Admin: 10/23/20 09:03 Dose: 100 mls/hr Documented by: Isosorbide Mononitrate (Isosorbide Mononitrate Er 30 Mg Tab) 30 mg PO QDAY [facility] Last Admin: 10/23/20 09:03 Dose: 30 mg Documented by: Magnesium Hydroxide (Magnesium Hydroxide (Mom) Oral Liqd Udc) 30 ml PO Q4H PRN PRN Reason: Constipation Melatonin (Melatonin 5 Mg Tab) 5 mg PO QHS PRN PRN Reason: Sleep Metoprolol Tartrate (Metoprolol Tartrate 50 Mg Tab) 50 mg PO Q8HR [facility] Last Admin: 10/23/20 07:06 Dose: 50 mg Documented by: Morphine Sulfate (Morphine 2 Mg/1 Ml Inj) 2 mg IV Q4H PRN PRN Reason: Pain, Moderate (4-6) Ondansetron HCl (Ondansetron 4 Mg/2 Ml Inj) 4 mg IV Q8H PRN PRN Reason: Nausea And Vomiting Sodium Chloride (Sodium Chloride 0.9% 10 Ml Flush Syringe) 10 ml IV BID [facility] Last Admin: 10/23/20 09:04 Dose: 10 ml Documented by: Sodium Chloride (Sodium Chloride 0.9% 10 Ml Flush Syringe) 10 ml IV PRN PRN PRN Reason: LINE FLUSH Review of Systems All systems: negative (weakness) Exam - Vital Signs Vital signs: Vital Signs Temp Pulse Resp BP Pulse Ox 98.0 F 90 20 150/87 96 10/22/20 15:47 10/22/20 15:47 10/22/20 15:47 10/22/20 15:47 10/22/20 15:47 - General Appearance General appearance: well-developed, well-nourished, appears stated age EENT: ATNC, PERRL Neck: Present: trachea midline Respiratory: Clear to Ascultation Heart: regular, S1S2 Gastrointestinal: Present: normoactive bowel sounds Integumentary: no rash, warm and dry Neurologic: no focal deficit, no asterixis, alert and oriented x3 Musculoskeletal: Present: other (no edema in BLE) Psychiatric: mood/affect appropriate, cooperative Results - Lab Results 10/23/20 07:27 10/23/20 07:27 Most recent lab results Calcium 8.2 mg/dL (8.4-10.2) L 10/23/20 07:27 Assessment and Plan Right apical atelectasis Acute renal failure Lung CA. STEMI Ventricular fibrillation Peripheral vascular disease Tobacco abuse baseline Cr is normal VIRGILIO could be secondary to prerenal azotemia, responding to IVF cont NS, will check urine lytes and protein renally dose meds strict I&O daily weight Pa Sanchez MD [phone]
--- NOTE | 2020-10-23 09:27 | Electrocardiograph Report ---
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
--- NOTE | 2020-10-23 11:33 | Ultrasound Report ---
. ULTRASOUND RENAL INDICATION / CLINICAL INFORMATION: Urinary retention, Renal cysts, hydronephrosis. COMPARISON: CT abdomen pelvis without contrast 10/22/2020 FINDINGS: RIGHT KIDNEY: Length = 10.3 cm. [normal > 9 cm] - Parenchymal Thickness = 1.8 cm. [normal > 1.5 cm] - Echogenicity: Increased - Hydronephrosis: None - Cyst or mass: There are at least 3 cysts in the right kidney measuring 2.5 cm, 1.4 cm and 6.0 cm. - Stones: None seen. LEFT KIDNEY: Length = 10.6 cm. [normal > 9 cm] - Parenchymal Thickness = 2.0 cm. [normal > 1.5 cm] - Echogenicity: Increased - Hydronephrosis: None. - Cyst or mass: 2 cysts are identified in the left kidney measuring 4.9 cm and 1.4 cm. - Stones: None seen. URINARY BLADDER: The bladder is empty and contains a Geiger catheter. FREE FLUID: None. ADDITIONAL FINDINGS: None. IMPRESSION: Slightly echogenic kidneys consistent with nonspecific renal parenchymal disease. Bilateral renal cysts as described. Signer Name: Luther Messina Jr, MD Signed: 10/23/2020 11:29 AM Workstation Name: [id number]
--- NOTE | 2020-10-23 12:01 | Consultation ---
History of Present Illness Consult date: 10/23/20 Consult reason: other (Coronary artery disease) History of present illness: The patient is a 70-year-old man who was hospitalized in this hospital last week with an acute inferior STEMI. He underwent successful primary angioplasty and stenting of the occluded right coronary artery with drug-eluting stents. We found severe disease of the left main coronary artery which is planned for elective outpatient intervention. He was discharged on guideline directed medical therapy and an appointment with [facility] for transcutaneous PCI of the unprotected left main in the next several weeks. He returns to the hospital now with complaints of general malaise, urinary frequency and decreased appetite. There were no specific cardiac complaints, no chest pain, no unusual shortness of breath no palpitations. He has been fully compliant with his dual oral antiplatelet therapy, and his ECG on this presentation shows a normal sinus rhythm with no ST or T wave abnormalities, no ischemic findings. The ECG is essentially pseudo-normalized following his acute CT of two weeks ago. Currently he is undergoing evaluation by the internal medicine service for his presentation with constitutional symptoms as described above. Chest x-ray and CT scan of the chest show a density suspicious for malignancy in the right upper lobe. It will be recalled that this patient has a known history of lung cancer that was treated at [facility], [place] within the past year with radiation therapy and chemotherapy. Past History Past Medical History: CAD, hypertension, hyperlipidemia Past Surgical History: Other (Recent cardiac Cath.) Social history: no significant social history Family history: no significant family history Medications and Allergies Allergies Allergy/AdvReac Type Severity Reaction Status Date / Time No Known Allergies Allergy Verified 10/22/20 15:47 Home Medications Medication Instructions Recorded Confirmed Last Taken Type Aspirin EC [Halfprin EC] 81 mg PO QDAY #30 tablet. 10/20/20 Unknown Rx AtorvaSTATin [Lipitor] 80 mg PO QHS #30 tablet 10/20/20 Unknown Rx Clopidogrel [Plavix] 75 mg PO QHS #30 tablet 10/20/20 Unknown Rx ISOSORBIDE MONOnitrate [Imdur ER] 30 mg PO QDAY #30 tablet 10/20/20 Unknown Rx Melatonin [Melatonin 5MG TAB] 5 mg PO QHS PRN #30 tablet 10/20/20 Unknown Rx Metoprolol [Lopressor TAB] 50 mg PO Q8H #90 tablet 10/20/20 Unknown Rx Active Meds: Active Medications Acetaminophen (Acetaminophen 325 Mg Tab) 650 mg PO Q4H PRN PRN Reason: Pain MILD(1-3)/Fever >100.5/PHAM Aspirin (Aspirin Ec 81 Mg Tab) 81 mg PO QDAY [facility] Last Admin: 10/23/20 09:03 Dose: Not Given Documented by: Atorvastatin Calcium (Atorvastatin 40 Mg Tab) 80 mg PO QHS [facility] Clopidogrel Bisulfate (Clopidogrel 75 Mg Tab) 75 mg PO QDAY [facility] Heparin Sodium (Porcine) (Heparin 5,000 Unit/1 Ml Vial) 5,000 unit SUB-Q Q8HR [facility] Last Admin: 10/23/20 07:06 Dose: 5,000 unit Documented by: Sodium Chloride (Nacl 0.9% 1000 Ml) 1,000 mls @ 75 mls/hr IV DIRECT [facility] Last Admin: 10/22/20 23:43 Dose: 75 mls/hr Documented by: Levofloxacin/Dextrose (Levaquin 750mg/150ml) 750 mg in 150 mls @ 100 mls/hr IV Q24HR [facility]; Protocol Isosorbide Mononitrate (Isosorbide Mononitrate Er 30 Mg Tab) 30 mg PO QDAY [facility] Last Admin: 10/23/20 09:03 Dose: 30 mg Documented by: Magnesium Hydroxide (Magnesium Hydroxide (Mom) Oral Liqd Udc) 30 ml PO Q4H PRN PRN Reason: Constipation Melatonin (Melatonin 5 Mg Tab) 5 mg PO QHS PRN PRN Reason: Sleep Metoprolol Tartrate (Metoprolol Tartrate 50 Mg Tab) 50 mg PO Q8HR [facility] Last Admin: 10/23/20 07:06 Dose: 50 mg Documented by: Morphine Sulfate (Morphine 2 Mg/1 Ml Inj) 2 mg IV Q4H PRN PRN Reason: Pain, Moderate (4-6) Ondansetron HCl (Ondansetron 4 Mg/2 Ml Inj) 4 mg IV Q8H PRN PRN Reason: Nausea And Vomiting Sodium Chloride (Sodium Chloride 0.9% 10 Ml Flush Syringe) 10 ml IV BID [facility] Last Admin: 10/23/20 09:04 Dose: 10 ml Documented by: Sodium Chloride (Sodium Chloride 0.9% 10 Ml Flush Syringe) 10 ml IV PRN PRN PRN Reason: LINE FLUSH Review of Systems Cardiovascular: shortness of breath, no chest pain, no orthopnea, no palpitations, no rapid/irregular heart beat, no edema, no syncope, no lightheadedness Physical Examination Vital Signs Temp Pulse Resp BP Pulse Ox 98.0 F 90 20 150/87 96 10/22/20 15:47 10/22/20 15:47 10/22/20 15:47 10/22/20 15:47 10/22/20 15:47 General appearance: no acute distress HEENT: Positive: PERRL Neck: Positive: neck supple Cardiac: Positive: Reg Rate and Rhythm Lungs: Positive: Decreased Breath Sounds Neuro: Positive: Grossly Intact Abdomen: Positive: Soft Male genitourinary: Positive: deferred Skin: Positive: Clear Extremities: Absent: edema Results 10/23/20 07:27 10/23/20 07:27 Cardiac Enzymes 10/22/20 Range/Units 16:24 AST 34 (5-40) units/L Coagulation 10/22/20 10/23/20 Range/Units 16:24 07:27 PT 13.4 14.0 (12.2-14.9) Sec. INR 1.04 1.10 (0.87-1.13) APTT 28.8 (24.2-36.6) Sec. CBC 10/22/20 10/23/20 Range/Units 16:24 07:27 WBC 11.6 H 8.0 (4.5-11.0) K/mm3 RBC 3.58 L 3.42 L (3.65-5.03) M/mm3 Hgb 9.0 L 8.6 L (11.8-15.2) gm/dl Hct 26.8 L 25.4 L (35.5-45.6) % Plt Count 463 H 417 (140-440) K/mm3 Comprehensive Metabolic Panel 10/22/20 10/23/20 Range/Units 16:24 07:27 Sodium 134 L 135 L (137-145) mmol/L Potassium 4.8 4.4 (3.6-5.0) mmol/L Chloride 101.6 104.4 (98-107) mmol/L Carbon Dioxide 18 L 19 L (22-30) mmol/L BUN 41 H 29 H (9-20) mg/dL Creatinine 2.1 H 1.4 H (0.8-1.3) mg/dL Glucose 86 86 (75-100) mg/dL Calcium 8.3 L 8.2 L (8.4-10.2) mg/dL AST 34 (5-40) units/L ALT 40 (7-56) units/L Alkaline Phosphatase 91 (35-129) units/L Total Protein 7.6 (6.3-8.2) g/dL Albumin 3.6 L (3.9-5) g/dL EKG interpretations - Telemetry EKG Rhythm: Sinus Rhythm Assessment and Plan - Patient Problems (1) Coronary artery disease Current Visit: Yes Status: Acute Plan to address problem: The patient has a history of coronary artery disease, status post primary intervention to the right coronary artery 2 weeks ago for acute inferior STEMI. As described above, he has a secondary, severe stenosis of the distal left main that is planned for staged percutaneous intervention as an outpatient. On his current presentation, he has no cardiac complaints, serial ECGs are normal, and he is fully compliant with his dual oral antiplatelet therapy. I would continue guideline directed medical therapy with no interruption in his Plavix therapy at this time. The finding of lung cancer in his right upper lobe is likely chronic, related to his lung cancer diagnosis within the past year, and may not need additional diagnostic intervention at this time.
[2020-10-23] MEDS: CLOPIDOGREL 75 MG TAB PO SCH (12:03)
[2020-10-23 13:17] LABS: Creatinine,Urine 68.3 mg/dL (0.1-20.0)
[2020-10-23] MEDS: ACETAMINOPHEN 325 MG TAB PO PRN ×3 (14:13→23:23)
[2020-10-23 17:25] LABS: Anisocytosis RARE; Total Cells Counted 100
[2020-10-23 17:26] LABS: Hypochromasia 1+; Large Platelets Rare; Platelet Clumps Rare
[2020-10-23 20:25] LABS: Creatinine,Urine 68.4 mg/dL (0.1-20.0); Protein/Creatinine Ratio,Urine 2.88
[2020-10-23] MEDS ORDERED: CLOPIDOGREL 75 MG TAB PO SCH (22:00)
[2020-10-24] MEDS: METOPROLOL TARTRATE 50 MG TAB PO SCH ×3 (06:50→21:35)
[2020-10-24] MEDS: HEPARIN 5,000 UNIT/1 ML VIAL SUB-Q SCH ×3 (06:55→21:33)
--- NOTE | 2020-10-24 08:20 | Progress Note ---
Assessment and Plan Assessment and plan: Right apical atelectasis. Patient reportedly has a history of lung CA. Pulmonary to perform bronchoscopy. Lung CA. STEMI -Patient with recent hospitalization last week where patient presented with hyp otension and bradycardia requiring pacing then developed ventricular fibrillation requiring cardioversion -ECG showed inferior/anterior ST elevation -Left heart cath revealed severe left main and right coronary artery 100% stenosis -S/p PCI with drug-eluting stent -Beta-annalisa, antiplatelet, antilipid therapy Ventricular fibrillation -Noted in the [employer] on previous admission -S/p cardioversion Peripheral vascular disease Tobacco abuse -Tobacco cessation counseling 10/24/2020 -Patient is on Levaquin for UTI, urine cultures pending -Patient was evaluated by cardiology and recommend guideline directed medical therapy. Recommend to continue Plavix without interruption. Patient was admi tted a week ago and had stent placement. No further intervention from cardiology -VIRGILIO is improving, morning labs are pending -Pulmonary consulted and will do bronch if cleared by cardiology -Patient had history of lung cancer and treated at [facility], and need to follow after discharge -We will do PT OT evaluation -Patient has broken right toenail and advised him to have follow-up with shannon mccall. -patient is stable for discharge. History Interval history: Patient was seen and evaluated this morning Patient stated he is feeling okay, except his right toenail is bothering him Hospitalist Physical - Physical exam Narrative exam: Not in cardiopulmonary distress. The patient appeared well nourished and normally developed. Vital signs as documented. Head exam is unremarkable. No scleral icterus . Neck is without jugular venous distension, thyromegaly, or carotid bruits. Lungs are clear to auscultation. Cardiac exam reveals regular rate and Rhythm. Abdominal exam reveals normal bowel sounds, nontender, no organomegaly. Extremities are nonedematous and both femoral and pedal pulses are normal. 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 No focal weakness. - Constitutional Vitals: Temp Pulse Resp BP Pulse Ox 97.9 F 70 18 115/69 98 10/24/20 07:37 10/24/20 07:37 10/24/20 06:47 10/24/20 07:37 10/24/20 07:37 General appearance: Present: no acute distress HEART Score - HEART Score Troponin: Troponin T 0.130 ng/mL (0.00-0.029) H* 10/22/20 19:24 Results - Labs CBC & Chem 7: 10/24/20 07:47 10/24/20 07:47 Labs: Laboratory Last Values WBC 8.0 K/mm3 (4.5-11.0) 10/23/20 07:27 RBC 3.42 M/mm3 (3.65-5.03) L 10/23/20 07:27 Hgb 8.6 gm/dl (11.8-15.2) L 10/23/20 07:27 Hct 25.4 % (35.5-45.6) L 10/23/20 07:27 MCV 74 fl (84-94) L 10/23/20 07:27 MCH 25 pg (28-32) L 10/23/20 07:27 MCHC 34 % (32-34) 10/23/20 07:27 RDW 15.2 % (13.2-15.2) 10/23/20 07:27 Plt Count 417 K/mm3 (140-440) 10/23/20 07:27 Add Manual Diff Complete 10/23/20 07:27 Total Counted 100 10/23/20 07:27 Seg Neuts % (Manual) 69.0 % (40.0-70.0) 10/23/20 07:27 Band Neutrophils % 3.0 % 10/22/20 16:24 Lymphocytes % (Manual) 14.0 % (13.4-35.0) 10/23/20 07:27 Monocytes % (Manual) 14.0 % (0.0-7.3) H 10/23/20 07:27 Eosinophils % (Manual) 2.0 % (0.0-4.3) 10/23/20 07:27 Basophils % (Manual) 1.0 % (0.0-1.8) 10/23/20 07:27 Metamyelocytes % 2.0 % 10/22/20 16:24 Nucleated RBC % Not Reportable 10/23/20 07:27 Seg Neutrophils # Man 5.5 K/mm3 (1.8-7.7) 10/23/20 07:27 Band Neutrophils # 0.0 K/mm3 10/23/20 07:27 Lymphocytes # (Manual) 1.1 K/mm3 (1.2-5.4) L 10/23/20 07:27 Abs React Lymphs (Man) 0.0 K/mm3 10/23/20 07:27 Monocytes # (Manual) 1.1 K/mm3 (0.0-0.8) H 10/23/20 07:27 Eosinophils # (Manual) 0.2 K/mm3 (0.0-0.4) 10/23/20 07:27 Basophils # (Manual) 0.1 K/mm3 (0.0-0.1) 10/23/20 07:27 Metamyelocytes # 0.0 K/mm3 10/23/20 07:27 Myelocytes # 0.0 K/mm3 10/23/20 07:27 Promyelocytes # 0.0 K/mm3 10/23/20 07:27 Blast Cells # 0.0 K/mm3 10/23/20 07:27 WBC Morphology Not Reportable 10/23/20 07:27 Hypersegmented Neuts Not Reportable 10/23/20 07:27 Hyposegmented Neuts Not Reportable 10/23/20 07:27 Hypogranular Neuts Not Reportable 10/23/20 07:27 Smudge Cells Not Reportable 10/23/20 07:27 Toxic Granulation Not Reportable 10/23/20 07:27 Toxic Vacuolation Not Reportable 10/23/20 07:27 Dohle Bodies Not Reportable 10/23/20 07:27 Pelger-Huet Anomaly Not Reportable 10/23/20 07:27 Rudy Rods Not Reportable 10/23/20 07:27 Platelet Estimate Not Reportable 10/23/20 07:27 Clumped Platelets Rare 10/23/20 07:27 Plt Clumps, EDTA Not Reportable 10/23/20 07:27 Large Platelets Rare 10/23/20 07:27 Giant Platelets Not Reportable 10/23/20 07:27 Platelet Satelliting Not Reportable 10/23/20 07:27 Plt Morphology Comment Not Reportable 10/23/20 07:27 RBC Morphology Not Reportable 10/23/20 07:27 Dimorphic RBCs Not Reportable 10/23/20 07:27 Polychromasia Rare 10/23/20 07:27 Hypochromasia 1+ 10/23/20 07:27 Poikilocytosis Not Reportable 10/23/20 07:27 Anisocytosis Rare 10/23/20 07:27 Microcytosis Rare 10/23/20 07:27 Macrocytosis Not Reportable 10/23/20 07:27 Spherocytes Not Reportable 10/23/20 07:27 Pappenheimer Bodies Not Reportable 10/23/20 07:27 Sickle Cells Not Reportable 10/23/20 07:27 Target Cells Not Reportable 10/23/20 07:27 Tear Drop Cells Not Reportable 10/23/20 07:27 Ovalocytes Not Reportable 10/23/20 07:27 Helmet Cells Not Reportable 10/23/20 07:27 [place] Bodies Not Reportable 10/23/20 07:27 [place] Rings Not Reportable 10/23/20 07:27 [place] Cells Not Reportable 10/23/20 07:27 Bite Cells Not Reportable 10/23/20 07:27 Crenated Cell Not Reportable 10/23/20 07:27 Elliptocytes Not Reportable 10/23/20 07:27 Acanthocytes (Spur) Not Reportable 10/23/20 07:27 Rouleaux Not Reportable 10/23/20 07:27 Hemoglobin C Crystals Not Reportable 10/23/20 07:27 Schistocytes Not Reportable 10/23/20 07:27 Malaria parasites Not Reportable 10/23/20 07:27 Waldo Bodies Not Reportable 10/23/20 07:27 Hem Pathologist Commnt No 10/23/20 07:27 PT 14.0 Sec. (12.2-14.9) 10/23/20 07:27 INR 1.10 (0.87-1.13) 10/23/20 07:27 APTT 28.8 Sec. (24.2-36.6) 10/22/20 16:24 Sodium 135 mmol/L (137-145) L 10/23/20 07:27 Potassium 4.4 mmol/L (3.6-5.0) 10/23/20 07:27 Chloride 104.4 mmol/L (98-107) 10/23/20 07:27 Carbon Dioxide 19 mmol/L (22-30) L 10/23/20 07:27 Anion Gap 16 mmol/L 10/23/20 07:27 BUN 29 mg/dL (9-20) H 10/23/20 07:27 Creatinine 1.4 mg/dL (0.8-1.3) H 10/23/20 07:27 Estimated GFR > 60 ml/min 10/23/20 07:27 BUN/Creatinine Ratio 21 % 10/23/20 07:27 Glucose 86 mg/dL (75-100) 10/23/20 07:27 Calcium 8.2 mg/dL (8.4-10.2) L 10/23/20 07:27 Total Bilirubin 0.50 mg/dL (0.1-1.2) 10/22/20 16:24 AST 34 units/L (5-40) 10/22/20 16:24 ALT 40 units/L (7-56) 10/22/20 16:24 Alkaline Phosphatase 91 units/L (35-129) 10/22/20 16:24 Troponin T 0.130 ng/mL (0.00-0.029) H* 10/22/20 19:24 NT-Pro-B Natriuret Pep 1005 pg/mL (0-900) H 10/22/20 16:24 Total Protein 7.6 g/dL (6.3-8.2) 10/22/20 16:24 Albumin 3.6 g/dL (3.9-5) L 10/22/20 16:24 Albumin/Globulin Ratio 0.9 % 10/22/20 16:24 Urine Color Yellow (Yellow) 10/22/20 21:20 Urine Turbidity Clear (Clear) 10/22/20 21:20 Urine pH 6.0 (5.0-7.0) 10/22/20 21:20 Ur Specific [place] 1.009 (1.003-1.030) 10/22/20 21:20 Urine Protein <15 mg/dl mg/dL (Negative) 10/22/20 21:20 Urine Glucose (UA) Neg mg/dL (Negative) 10/22/20 21:20 Urine Ketones Neg mg/dL (Negative) 10/22/20 21:20 Urine Blood Mod (Negative) 10/22/20 21:20 Urine Nitrite Neg (Negative) 10/22/20 21:20 Urine Bilirubin Neg (Negative) 10/22/20 21:20 Urine Urobilinogen < 2.0 mg/dL (<2.0) 10/22/20 21:20 Ur Leukocyte Esterase Mod (Negative) 10/22/20 21:20 Urine WBC (Auto) 9.0 /HPF (0.0-6.0) H 10/22/20 21:20 Urine RBC (Auto) 2.0 /HPF (0.0-6.0) 10/22/20 21:20 Urine Creatinine 68.3 mg/dL (0.1-20.0) H 10/23/20 12:08 Urine Creatinine 68.4 mg/dL (0.1-20.0) H 10/23/20 12:08 Protein/Creatinin Ratio 2.88 10/23/20 12:08 Urine Sodium 60 mmol/L 10/23/20 12:08 Urine Total Protein 197 mg/dL (5-11.8) H 10/23/20 12:08 Microbiology: Microbiology 10/22/20 20:50 Peripheral/Venous Blood Culture - Preliminary NO GROWTH AFTER 24 HOURS 10/22/20 20:40 Peripheral/Venous Blood Culture - Preliminary NO GROWTH AFTER 24 HOURS Geiger/IV: Voiding Method Indwelling Catheter Active Medications - Current Medications Current Medications: Generic Name Dose Route Start Last Admin Trade Name Freq PRN Reason Stop Dose Admin Acetaminophen 650 mg 10/22/20 22:08 10/23/20 23:23 Acetaminophen 325 Mg Tab PO 650 mg Q4H PRN Administration Pain MILD(1-3)/Fever >100.5/PHAM Aspirin 81 mg 10/23/20 10:00 10/23/20 12:02 Aspirin Ec 81 Mg Tab PO 81 mg QDAY GEOVANNI Administration Atorvastatin Calcium 80 mg 10/23/20 22:00 10/23/20 22:50 Atorvastatin 40 Mg Tab PO 80 mg QHS GEOVANNI Administration Clopidogrel Bisulfate 75 mg 10/23/20 12:00 10/23/20 12:03 Clopidogrel 75 Mg Tab PO 75 mg QDAY GEOVANNI Administration Heparin Sodium (Porcine) 5,000 unit 10/23/20 06:00 10/24/20 06:55 Heparin 5,000 Unit/1 Ml Vial SUB-Q 5,000 unit Q8HR GEOVANNI Administration Sodium Chloride 1,000 mls @ 75 mls/hr 10/22/20 22:15 10/22/20 23:43 Nacl 0.9% 1000 Ml IV 75 mls/hr DIRECT GEOVANNI Administration Levofloxacin/Dextrose 750 mg in 150 mls @ 100 mls/hr 10/24/20 10:00 Levaquin 750mg/150ml IV Q24HR GEOVANNI Protocol Isosorbide Mononitrate 30 mg 10/23/20 10:00 10/23/20 09:03 Isosorbide Mononitrate Er 30 Mg Tab PO 30 mg QDAY GEOVANNI Administration Magnesium Hydroxide 30 ml 10/22/20 22:08 Magnesium Hydroxide (Mom) Oral Liqd Udc PO Q4H PRN Constipation Melatonin 5 mg 10/23/20 03:06 Melatonin 5 Mg Tab PO QHS PRN Sleep Metoprolol Tartrate 50 mg 10/23/20 04:00 10/24/20 06:50 Metoprolol Tartrate 50 Mg Tab PO 50 mg Q8HR GEOVANNI Administration Morphine Sulfate 2 mg 10/22/20 22:08 Morphine 2 Mg/1 Ml Inj IV Q4H PRN Pain, Moderate (4-6) Ondansetron HCl 4 mg 10/22/20 22:08 Ondansetron 4 Mg/2 Ml Inj IV Q8H PRN Nausea And Vomiting Sodium Chloride 10 ml 10/23/20 10:00 10/23/20 22:50 Sodium Chloride 0.9% 10 Ml Flush Syringe IV 10 ml BID GEOVANNI Administration Sodium Chloride 10 ml 10/22/20 22:08 Sodium Chloride 0.9% 10 Ml Flush Syringe IV PRN PRN LINE FLUSH
[2020-10-24 08:39] LABS: Hematocrit 26.7 % (35.5-45.6); Hemoglobin 8.8 gm/dl (11.8-15.2); Mean Corpuscular HGB Conc 33 % (32-34); Mean Corpuscular Volume 75 fl (84-94); Platelet Count 457 K/mm3 (140-440); Red Blood Count 3.55 M/mm3 (3.65-5.03); Red Cell Distribution Width 15.1 % (13.2-15.2)
[2020-10-24 08:52] LABS: BUN/Creatinine Ratio 22; Blood Urea Nitrogen 24 mg/dL (9-20); Calcium 8.4 mg/dL (8.4-10.2); Hemolysis Index 0
--- NOTE | 2020-10-24 08:55 | Progress Note ---
Assessment and Plan Right apical atelectasis Acute renal failure Lung CA. STEMI Ventricular fibrillation Peripheral vascular disease Tobacco abuse baseline Cr is normal VIRGILIO is secondary to prerenal azotemia, responding to IVF, Cr is trending down renally dose meds strict I&O daily weight Pa Sanchez MD [phone] Subjective Date of service: 10/24/20 Principal diagnosis: VIRGILIO Interval history: denies acute issues, comfortable Objective - Vital Signs Vital signs: Vital Signs - 12hr 10/23/20 10/23/20 10/23/20 22:00 23:00 23:12 Temperature 97.8 F Pulse Rate 69 71 75 Pulse Rate [ 75 Apical] Pulse Rate [ 75 From Monitor] Respiratory 17 16 Rate Blood Pressure 120/58 120/58 O2 Sat by Pulse 97 96 Oximetry 10/24/20 10/24/20 10/24/20 03:39 06:00 06:47 Temperature 97.9 F 98.0 F Pulse Rate 69 69 Pulse Rate [ Apical] Pulse Rate [ From Monitor] Respiratory 16 18 Rate Blood Pressure 118/68 115/64 O2 Sat by Pulse 99 Oximetry 10/24/20 10/24/20 06:50 07:37 Temperature 97.9 F Pulse Rate 75 70 Pulse Rate [ Apical] Pulse Rate [ From Monitor] Respiratory Rate Blood Pressure 118/68 115/69 O2 Sat by Pulse 98 Oximetry - General Appearance General appearance: well-developed, well-nourished EENT: ATNC, PERRL, mucous membranes moist Neck: no JVD, no carotid bruit Respiratory: Present: Clear to Ascultation. Absent: Rales, Ronchi Cardiology: regular, S1S2 Gastrointestinal: normoactive bowel sounds, no tenderness, no distended, no masses Integumentary: no rash, warm and dry Neurologic: no focal deficit, no asterixis, alert and oriented x3 Musculoskeletal: other (no edema in BLE) Psychiatric: mood/affect appropriate, cooperative - Lab 10/24/20 07:47 10/24/20 07:47 Most recent lab results Calcium 8.4 mg/dL (8.4-10.2) 10/24/20 07:47 Phosphorus 3.00 mg/dL (2.5-4.5) 10/24/20 07:47 Urine Creatinine 68.3 mg/dL (0.1-20.0) H 10/23/20 12:08 Urine Creatinine 68.4 mg/dL (0.1-20.0) H 10/23/20 12:08 Urine Sodium 60 mmol/L 10/23/20 12:08 Urine Total Protein 197 mg/dL (5-11.8) H 10/23/20 12:08 Medications & Allergies - Medications Allergies/Adverse Reactions: Allergies No Known Allergies Allergy (Verified 10/22/20 15:47) Home Medications: Home Medications Medication Instructions Recorded Confirmed Last Taken Type Aspirin EC [Halfprin EC] 81 mg PO QDAY #30 tablet.dr 10/20/20 Unknown Rx AtorvaSTATin [Lipitor] 80 mg PO QHS #30 tablet 10/20/20 Unknown Rx Clopidogrel [Plavix] 75 mg PO QHS #30 tablet 10/20/20 Unknown Rx ISOSORBIDE MONOnitrate [Imdur ER] 30 mg PO QDAY #30 tablet 10/20/20 Unknown Rx Melatonin [Melatonin 5MG TAB] 5 mg PO QHS PRN #30 tablet 10/20/20 Unknown Rx Metoprolol [Lopressor TAB] 50 mg PO Q8H #90 tablet 10/20/20 Unknown Rx Active Medications: Generic Name Dose Route Start Last Admin Trade Name Freq PRN Reason Stop Dose Admin Acetaminophen 650 mg 10/22/20 22:08 10/23/20 23:23 Acetaminophen 325 Mg Tab PO 650 mg Q4H PRN Administration Pain MILD(1-3)/Fever >100.5/PHAM Aspirin 81 mg 10/23/20 10:00 10/23/20 12:02 Aspirin Ec 81 Mg Tab PO 81 mg QDAY GEOVANNI Administration Atorvastatin Calcium 80 mg 10/23/20 22:00 10/23/20 22:50 Atorvastatin 40 Mg Tab PO 80 mg QHS GEOVANNI Administration Clopidogrel Bisulfate 75 mg 10/23/20 12:00 10/23/20 12:03 Clopidogrel 75 Mg Tab PO 75 mg QDAY GEOVANNI Administration Heparin Sodium (Porcine) 5,000 unit 10/23/20 06:00 10/24/20 06:55 Heparin 5,000 Unit/1 Ml Vial SUB-Q 5,000 unit Q8HR GEOVANNI Administration Sodium Chloride 1,000 mls @ 75 mls/hr 10/22/20 22:15 10/22/20 23:43 Nacl 0.9% 1000 Ml IV 75 mls/hr DIRECT GEOVANNI Administration Levofloxacin/Dextrose 750 mg in 150 mls @ 100 mls/hr 10/24/20 10:00 Levaquin 750mg/150ml IV Q24HR [facility] Protocol Isosorbide Mononitrate 30 mg 10/23/20 10:00 10/23/20 09:03 Isosorbide Mononitrate Er 30 Mg Tab PO 30 mg QDAY GEOVANNI Administration Magnesium Hydroxide 30 ml 10/22/20 22:08 Magnesium Hydroxide (Mom) Oral Liqd Udc PO Q4H PRN Constipation Melatonin 5 mg 10/23/20 03:06 Melatonin 5 Mg Tab PO QHS PRN Sleep Metoprolol Tartrate 50 mg 10/23/20 04:00 10/24/20 06:50 Metoprolol Tartrate 50 Mg Tab PO 50 mg Q8HR GEOVANNI Administration Morphine Sulfate 2 mg 10/22/20 22:08 Morphine 2 Mg/1 Ml Inj IV Q4H PRN Pain, Moderate (4-6) Ondansetron HCl 4 mg 10/22/20 22:08 Ondansetron 4 Mg/2 Ml Inj IV Q8H PRN Nausea And Vomiting Sodium Chloride 10 ml 10/23/20 10:00 10/23/20 22:50 Sodium Chloride 0.9% 10 Ml Flush Syringe IV 10 ml BID GEOVANNI Administration Sodium Chloride 10 ml 10/22/20 22:08 Sodium Chloride 0.9% 10 Ml Flush Syringe IV PRN PRN LINE FLUSH
--- NOTE | 2020-10-24 09:54 | Discharge Summary ---
Providers - Providers Date of Admission: 10/22/20 21:48 Date of discharge: 10/24/20 Attending physician: LIZZIE RODRIGUEZ MD 10/22/20 20:34 Consult to Physician [CONS] Stat Comment: Consulting Provider: ADRIENNE QUIÑONES Physician Instructions: Reason For Exam: Endobronchial obstruction 10/23/20 03:12 Consult to Physician [CONS] Routine Comment: Consulting Provider: ZABRINA GUZMAN Physician Instructions: Reason For Exam: VIRGILIO 10/23/20 03:16 Consult to Cardiology [CONS] Routine Consulting Provider: SIXTO MENON Reason For Exam: Elevated troponin. Recent STEMI 10/23/20 07:17 Consult to Wound/ET Nurse [CONS] Routine Reason For Exam: swollen left great toe, wound eval 10/24/20 08:18 Physical Therapy Evaluation and Treat [CONS] Routine Comment: Reason For Exam: weakness Primary care physician: MELTER HELPER Hospitalization Reason for admission: VIRGILIO, UTI, history of recent STEMI Condition: Stable Pertinent studies: CT chest Hospital course: History of present illness: 71-year-old male with known history of hypertension and recent STEMI presenting to the emergency room today complaining of generalized weakness, shortness of breath and increased urinary frequency. Patient was just discharged about a week ago for anterior inferior STEMI with stent placement. He denies any chest pain, no nausea vomiting, no fever or chills, no cough. Denies any sick contacts and no recent travel. Denies any contact with anyone with COVID-19. Upon arrival in the emergency room, patient was found to be in urinary retention and a Geiger catheter was placed. Work-up in the emergency room today reveals: Chest x-ray-. Questionable right upper lobe mass, recommend CT for further evaluation . CT scan of the chest reveals: 1. Abnormal findings within the right upper lobe of the lung. There is partial right upper lobe apical atelectasis within appearance worrisome for endobronchial obstruction. Bronchoscopy is suggested. 2. There are bilateral renal cysts. However there is 5 cm mass arising from the right upper pole which is nonspecific. Recommend renal ultrasound to determine whether this is a cyst or solid mass. 3. There is mild bilateral hydronephrosis. I believe this is more than likely due to markedly distended urinary bladder rather than true obstruction. 4. Large amount of calcified plaque is seen throughout the abdominal aorta, common iliac arteries, and external iliac arteries bilaterally. I suspect there is significant stenosis in the external iliac arteries. 5. mild gaseous distention of both small and large bowel without evidence for mechanical obstruction. 6. mild prostatic enlargement with marked distention of the urinary bladder. Recruiting Operations Consultant has been consulted by the ER physician. Patient started on empiric IV antibiotics for possible pneumonia Hospital course Right apical atelectasis. Patient reportedly has a history of lung CA. Pulmonary to perform bronchoscopy. Lung CA. 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 Patient was given levaquin at discharge. -Patient was evaluated by cardiology and recommend guideline directed medical therapy. Recommend to continue Plavix without interruption. Patient was admitted a week ago and had stent placement. No further intervention from cardiology -VIRGILIO is improving, morning labs are pending -Pulmonary consulted and will do bronch if cleared by cardiology -Patient had history of lung cancer and treated at [facility], and need to follow there after discharge. Pulmonary recommend to take his imaging studies and follow at [facility]. -We will do PT OT evaluation -Patient has broken right toenail and advised him to have follow-up with podiatry. -patient is stable for discharge. Disposition: DC- TO HOME OR SELFCARE Final Discharge Diagnosis (Prints w/discharge instructions): VIRGILIO, UTI Time spent for discharge: 35 minutes - Discharge Diagnoses (1) Hypertension Status: Acute (2) Lung cancer Status: Acute (3) Peripheral vascular disease due to secondary diabetes Status: Acute (4) STEMI (ST elevation myocardial infarction) Status: Acute (5) SVT (supraventricular tachycardia) Status: Acute (6) Tobacco use Status: Acute (7) Ventricular fibrillation Status: Acute Core Measure Documentation - Palliative Care Palliative Care/ Comfort Measures: Not Applicable - Core Measures Any of the following diagnoses?: history only (Acute [place] a week ago) Exam - Physical Exam Narrative exam: Not in cardiopulmonary distress. The patient appeared well nourished and normally developed. Vital signs as documented. Head exam is unremarkable. No scleral icterus . Neck is without jugular venous distension, thyromegaly, or carotid bruits. Lungs are clear to auscultation. Cardiac exam reveals regular rate and Rhythm. Abdominal exam reveals normal bowel sounds, nontender, no organomegaly. Extremities are nonedematous and both femoral and pedal pulses are normal. Right big toe nail broken. INJECTION MOLDER: Alert and oriented 3. No focal weakness. - Constitutional Vitals: Temp Pulse Resp BP Pulse Ox 97.9 F 70 18 115/69 98 10/24/20 07:37 10/24/20 07:37 10/24/20 06:47 10/24/20 07:37 10/24/20 07:37 Plan Activity: no restrictions Weight Bearing Status: Full Weight Bearing Diet: low salt, diabetic Additional Instructions: Advised to have follow up with podiatry for broken right toe nail Plan of Treatment: Home health service with [place] [facility] [phone] Follow up with: PRIMARY MD CAIO [Primary Care Provider] - 3-5 Days MAURICIO HANDLEY MD [Staff Physician] - 14 Days Prescriptions: levoFLOXacin [Levaquin TAB] 500 mg PO QDAY #3 tablet
--- NOTE | 2020-10-24 10:16 | Progress Note ---
Assessment and Plan - Patient Problems (1) Coronary artery disease Current Visit: Yes Status: Acute Plan to address problem: status post primary intervention to the right coronary artery 1 week ago for acute inferior STEMI. Continue medical therapy for coronary artery disease. The secondary, severe stenosis of the distal left main that is planned for staged percutaneous intervention as an outpatient. Otherwise, conservative cardiac management. Subjective Date of service: 10/24/20 Principal diagnosis: VIRGILIO Interval history: Patient denies chest pain, denies palpitations, and denies SOB. Objective Vital Signs Temp Pulse Pulse Pulse Resp BP Pulse Ox 10/24/20 07:37 97.9 F 70 115/69 98 10/24/20 06:50 75 118/68 10/24/20 06:47 98.0 F 18 115/64 10/24/20 06:00 69 10/24/20 03:39 97.9 F 69 16 118/68 99 10/23/20 23:12 97.8 F 75 16 120/58 96 10/23/20 23:00 71 120/58 10/23/20 22:00 69 75 75 17 97 10/23/20 19:38 97.8 F 75 16 116/68 97 10/23/20 18:53 17 10/23/20 16:38 98.3 F 68 97/50 99 10/23/20 15:13 17 10/23/20 14:13 17 10/23/20 14:12 79 124/75 10/23/20 14:00 67 - Physical Examination General: No Apparent Distress HEENT: Positive: PERRL Neck: Positive: trachea midline Cardiac: Positive: Reg Rate and Rhythm Lungs: Positive: Decreased Breath Sounds Neuro: Positive: Grossly Intact Abdomen: Positive: Soft Extremities: Absent: edema - Labs and Meds CBC 10/24/20 Range/Units 07:47 WBC 8.8 (4.5-11.0) K/mm3 RBC 3.55 L (3.65-5.03) M/mm3 Hgb 8.8 L (11.8-15.2) gm/dl Hct 26.7 L (35.5-45.6) % Plt Count 457 H (140-440) K/mm3 Comprehensive Metabolic Panel 10/24/20 Range/Units 07:47 Sodium 135 L (137-145) mmol/L Potassium 4.3 (3.6-5.0) mmol/L Chloride 104.1 (98-107) mmol/L Carbon Dioxide 23 (22-30) mmol/L BUN 24 H (9-20) mg/dL Creatinine 1.1 (0.8-1.3) mg/dL Glucose 97 (75-100) mg/dL Calcium 8.4 (8.4-10.2) mg/dL
[2020-10-24 11:21] LABS: Total Cells Counted 100
--- NOTE | 2020-10-24 11:21 | Progress Note ---
Assessment and Plan 70 y/o male with atelectasis of right upper lobe, etiology unknown. No indication for bronch at this time. Can follow up with [place] since Lung Ca is known. Needs to follow up with Images from here so that they can compare. Subjective Date of service: 10/24/20 Principal diagnosis: VIRGILIO Interval history: Stable Objective Vital Signs - 12hr 10/24/20 10/24/20 10/24/20 03:39 06:00 06:47 Temperature 97.9 F 98.0 F Pulse Rate 69 69 Respiratory 16 18 Rate Blood Pressure 118/68 115/64 O2 Sat by Pulse 99 Oximetry 10/24/20 10/24/20 06:50 07:37 Temperature 97.9 F Pulse Rate 75 70 Respiratory Rate Blood Pressure 118/68 115/69 O2 Sat by Pulse 98 Oximetry CBC and BMP: 10/24/20 07:47 10/24/20 07:47 ABG, PT/INR, D-dimer: PT/INR, D-dimer PT 14.0 Sec. (12.2-14.9) 10/23/20 07:27 INR 1.10 (0.87-1.13) 10/23/20 07:27 Abnormal lab findings: Abnormal Labs 10/22/20 10/22/20 10/22/20 16:24 16:24 16:24 WBC 11.6 H RBC 3.58 L Hgb 9.0 L Hct 26.8 L MCV 75 L MCH 25 L Plt Count 463 H Seg Neuts % (Manual) 84.0 H Lymphocytes % (Manual) 5.0 L Monocytes % (Manual) Seg Neutrophils # Man 9.7 H Lymphocytes # (Manual) 0.6 L Monocytes # (Manual) Sodium 134 L Carbon Dioxide 18 L BUN 41 H Creatinine 2.1 H Calcium 8.3 L Troponin T 0.139 H* NT-Pro-B Natriuret Pep 1005 H Albumin 3.6 L Urine WBC (Auto) Urine Creatinine Urine Total Protein 10/22/20 10/22/20 10/23/20 19:24 21:20 07:27 WBC RBC 3.42 L Hgb 8.6 L Hct 25.4 L MCV 74 L MCH 25 L Plt Count Seg Neuts % (Manual) Lymphocytes % (Manual) Monocytes % (Manual) 14.0 H Seg Neutrophils # Man Lymphocytes # (Manual) 1.1 L Monocytes # (Manual) 1.1 H Sodium Carbon Dioxide BUN Creatinine Calcium Troponin T 0.130 H* NT-Pro-B Natriuret Pep Albumin Urine WBC (Auto) 9.0 H Urine Creatinine Urine Total Protein 10/23/20 10/23/20 10/23/20 07:27 12:08 12:08 WBC RBC Hgb Hct MCV MCH Plt Count Seg Neuts % (Manual) Lymphocytes % (Manual) Monocytes % (Manual) Seg Neutrophils # Man Lymphocytes # (Manual) Monocytes # (Manual) Sodium 135 L Carbon Dioxide 19 L BUN 29 H Creatinine 1.4 H Calcium 8.2 L Troponin T NT-Pro-B Natriuret Pep Albumin Urine WBC (Auto) Urine Creatinine 68.3 H 68.4 H Urine Total Protein 197 H 10/24/20 10/24/20 07:47 07:47 WBC RBC 3.55 L Hgb 8.8 L Hct 26.7 L MCV 75 L MCH 25 L Plt Count 457 H Seg Neuts % (Manual) Lymphocytes % (Manual) Monocytes % (Manual) Seg Neutrophils # Man Lymphocytes # (Manual) Monocytes # (Manual) Sodium 135 L Carbon Dioxide BUN 24 H Creatinine Calcium Troponin T NT-Pro-B Natriuret Pep Albumin Urine WBC (Auto) Urine Creatinine Urine Total Protein
[2020-10-24 11:42] LABS: Myelocytes # (Manual) 0.1 K/mm3
[2020-10-24 11:43] LABS: Hypochromasia 1+
[2020-10-24 11:44] LABS: Platelet Estimate Consistent w Auto; RBC Morphology Normal
[2020-10-24] MEDS: ASPIRIN EC 81 MG TAB PO SCH (12:03)
[2020-10-24] MEDS: CLOPIDOGREL 75 MG TAB PO SCH (12:05)
[2020-10-24] MEDS: TAMSULOSIN 0.4 MG CAP PO SCH ×2 (14:29→14:31)
[2020-10-24] MEDS: SODIUM CHLORIDE 0.9% 1000 ML 1,000 ML IV SCH (18:25)
[2020-10-25] MEDS: HEPARIN 5,000 UNIT/1 ML VIAL SUB-Q SCH ×2 (05:54→14:02)
[2020-10-25 06:38] LABS: Hematocrit 24.7 % (35.5-45.6); Hemoglobin 8.3 gm/dl (11.8-15.2); Mean Corpuscular HGB Conc 34 % (32-34); Mean Corpuscular Volume 74 fl (84-94); Platelet Count 392 K/mm3 (140-440); Red Blood Count 3.32 M/mm3 (3.65-5.03); Red Cell Distribution Width 15.3 % (13.2-15.2)
[2020-10-25 07:25] LABS: BUN/Creatinine Ratio 16; Blood Urea Nitrogen 19 mg/dL (9-20); Calcium 7.9 mg/dL (8.4-10.2); Hemolysis Index 0
--- NOTE | 2020-10-25 07:58 | Progress Note ---
Assessment and Plan Assessment and plan: Right apical atelectasis. Patient reportedly has a history of lung CA. Pulmonary to perform bronchoscopy. Lung CA. STEMI -Patient with recent hospitalization last week where patient presented with hyp otension and bradycardia requiring pacing then developed ventricular fibrillation requiring cardioversion -ECG showed inferior/anterior ST elevation -Left heart cath revealed severe left main and right coronary artery 100% stenosis -S/p PCI with drug-eluting stent -Beta-annalisa, antiplatelet, antilipid therapy Ventricular fibrillation -Noted in the [facility] on previous admission -S/p cardioversion Peripheral vascular disease Tobacco abuse -Tobacco cessation counseling 10/24/2020 -Patient is on Levaquin for UTI, urine cultures pending -Patient was evaluated by cardiology and recommend guideline directed medical therapy. Recommend to continue Plavix without interruption. Patient was admi tted a week ago and had stent placement. No further intervention from cardiology -VIRGILIO is improving, morning labs are pending -Pulmonary consulted and will do bronch if cleared by cardiology -Patient had history of lung cancer and treated at [facility], and need to follow after discharge -We will do PT OT evaluation -Patient has broken right toenail and advised him to have follow-up with podiat ry. -patient is stable for discharge. 10/25/2020 -Patient was discharged yesterday but he for failed voiding trial. Bladder scan was done and showed 1000 mL of urine, straight catheter times. This morning he has also urinary retention and I put a catheter. Consulted urology notified them. Dr. Young said he will see him today. I discontinued IV antibiotic. VIRGILIO resolved. CT showed mild bilateral hydronephrosis, and mild prostatic enlargement. I started the patient on Flomax yesterday. Will be discharged once evaluated by urology. - Patient Problems (1) Hypertension Current Visit: Yes Status: Acute (2) Lung cancer Current Visit: No Status: Acute (3) Peripheral vascular disease due to secondary diabetes Current Visit: No Status: Acute (4) STEMI (ST elevation myocardial infarction) Current Visit: No Status: Acute (5) SVT (supraventricular tachycardia) Current Visit: No Status: Acute (6) Tobacco use Current Visit: No Status: Acute (7) Ventricular fibrillation Current Visit: No Status: Acute History Interval history: Patient was seen and evaluated this morning Patient was stable for discharge but he failed voiding trial Acute urinary retention and catheterized Hospitalist Physical - Physical exam Narrative exam: Not in cardiopulmonary distress. The patient appeared well nourished and normally developed. Vital signs as documented. Head exam is unremarkable. No scleral icterus . Neck is without jugular venous distension, thyromegaly, or carotid bruits. Lungs are clear to auscultation. Cardiac exam reveals regular rate and Rhythm. Abdominal exam reveals normal bowel sounds, nontender, no organomegaly. Extremities are nonedematous and both femoral and pedal pulses are normal. Right big toe nail broken. 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 No focal weakness. ; Geiger catheter in place. - Constitutional Vitals: Temp Pulse Resp BP Pulse Ox 98.1 F 74 17 105/68 98 10/25/20 04:13 10/25/20 06:00 10/25/20 04:13 10/25/20 04:13 10/25/20 04:13 General appearance: Present: no acute distress HEART Score - HEART Score Troponin: Troponin T 0.130 ng/mL (0.00-0.029) H* 10/22/20 19:24 Results - Labs CBC & Chem 7: 10/25/20 06:06 10/25/20 06:06 Labs: Laboratory Last Values WBC 10.4 K/mm3 (4.5-11.0) 10/25/20 06:06 RBC 3.32 M/mm3 (3.65-5.03) L 10/25/20 06:06 Hgb 8.3 gm/dl (11.8-15.2) L 10/25/20 06:06 Hct 24.7 % (35.5-45.6) L 10/25/20 06:06 MCV 74 fl (84-94) L 10/25/20 06:06 MCH 25 pg (28-32) L 10/25/20 06:06 MCHC 34 % (32-34) 10/25/20 06:06 RDW 15.3 % (13.2-15.2) H 10/25/20 06:06 Plt Count 392 K/mm3 (140-440) 10/25/20 06:06 Add Manual Diff Complete 10/24/20 07:47 Total Counted 100 10/24/20 07:47 Seg Neuts % (Manual) 63.0 % (40.0-70.0) 10/24/20 07:47 Band Neutrophils % 3.0 % 10/22/20 16:24 Lymphocytes % (Manual) 28.0 % (13.4-35.0) 10/24/20 07:47 Monocytes % (Manual) 8.0 % (0.0-7.3) H 10/24/20 07:47 Eosinophils % (Manual) 2.0 % (0.0-4.3) 10/23/20 07:27 Basophils % (Manual) 1.0 % (0.0-1.8) 10/23/20 07:27 Metamyelocytes % 2.0 % 10/22/20 16:24 Myelocytes % 1.0 % 10/24/20 07:47 Nucleated RBC % 1.0 % (0.0-0.9) H 10/24/20 07:47 Seg Neutrophils # Man 5.5 K/mm3 (1.8-7.7) 10/24/20 07:47 Band Neutrophils # 0.0 K/mm3 10/24/20 07:47 Lymphocytes # (Manual) 2.5 K/mm3 (1.2-5.4) 10/24/20 07:47 Abs React Lymphs (Man) 0.0 K/mm3 10/24/20 07:47 Monocytes # (Manual) 0.7 K/mm3 (0.0-0.8) 10/24/20 07:47 Eosinophils # (Manual) 0.0 K/mm3 (0.0-0.4) 10/24/20 07:47 Basophils # (Manual) 0.0 K/mm3 (0.0-0.1) 10/24/20 07:47 Metamyelocytes # 0.0 K/mm3 10/24/20 07:47 Myelocytes # 0.1 K/mm3 10/24/20 07:47 Promyelocytes # 0.0 K/mm3 10/24/20 07:47 Blast Cells # 0.0 K/mm3 10/24/20 07:47 WBC Morphology Not Reportable 10/24/20 07:47 Hypersegmented Neuts Not Reportable 10/24/20 07:47 Hyposegmented Neuts Not Reportable 10/24/20 07:47 Hypogranular Neuts Not Reportable 10/24/20 07:47 Smudge Cells Not Reportable 10/24/20 07:47 Toxic Granulation Not Reportable 10/24/20 07:47 Toxic Vacuolation Not Reportable 10/24/20 07:47 Dohle Bodies Not Reportable 10/24/20 07:47 Pelger-Huet Anomaly Not Reportable 10/24/20 07:47 Rudy Rods Not Reportable 10/24/20 07:47 Platelet Estimate Consistent w auto 10/24/20 07:47 Clumped Platelets Not Reportable 10/24/20 07:47 Plt Clumps, EDTA Not Reportable 10/24/20 07:47 Large Platelets Not Reportable 10/24/20 07:47 Giant Platelets Not Reportable 10/24/20 07:47 Platelet Satelliting Not Reportable 10/24/20 07:47 Plt Morphology Comment Not Reportable 10/24/20 07:47 RBC Morphology Normal 10/24/20 07:47 Dimorphic RBCs Not Reportable 10/24/20 07:47 Polychromasia Not Reportable 10/24/20 07:47 Hypochromasia 1+ 10/24/20 07:47 Poikilocytosis Not Reportable 10/24/20 07:47 Anisocytosis Not Reportable 10/24/20 07:47 Microcytosis Not Reportable 10/24/20 07:47 Macrocytosis Not Reportable 10/24/20 07:47 Spherocytes Not Reportable 10/24/20 07:47 Pappenheimer Bodies Not Reportable 10/24/20 07:47 Sickle Cells Not Reportable 10/24/20 07:47 Target Cells Not Reportable 10/24/20 07:47 Tear Drop Cells Not Reportable 10/24/20 07:47 Ovalocytes Not Reportable 10/24/20 07:47 Helmet Cells Not Reportable 10/24/20 07:47 Y[place] Bodies Not Reportable 10/24/20 07:47 [place] Rings Not Reportable 10/24/20 07:47 Maritza Cells Not Reportable 10/24/20 07:47 Bite Cells Not Reportable 10/24/20 07:47 Crenated Cell Not Reportable 10/24/20 07:47 Elliptocytes Not Reportable 10/24/20 07:47 Acanthocytes (Spur) Not Reportable 10/24/20 07:47 Rouleaux Not Reportable 10/24/20 07:47 Hemoglobin C Crystals Not Reportable 10/24/20 07:47 Schistocytes Not Reportable 10/24/20 07:47 Malaria parasites Not Reportable 10/24/20 07:47 Waldo Bodies Not Reportable 10/24/20 07:47 Hem Pathologist Commnt No 10/24/20 07:47 PT 14.0 Sec. (12.2-14.9) 10/23/20 07:27 INR 1.10 (0.87-1.13) 10/23/20 07:27 APTT 28.8 Sec. (24.2-36.6) 10/22/20 16:24 Sodium 130 mmol/L (137-145) L 10/25/20 06:06 Potassium 4.4 mmol/L (3.6-5.0) 10/25/20 06:06 Chloride 99.7 mmol/L (98-107) 10/25/20 06:06 Carbon Dioxide 19 mmol/L (22-30) L 10/25/20 06:06 Anion Gap 16 mmol/L 10/25/20 06:06 BUN 19 mg/dL (9-20) 10/25/20 06:06 Creatinine 1.2 mg/dL (0.8-1.3) 10/25/20 06:06 Estimated GFR > 60 ml/min 10/25/20 06:06 BUN/Creatinine Ratio 16 % 10/25/20 06:06 Glucose 97 mg/dL (75-100) 10/25/20 06:06 Calcium 7.9 mg/dL (8.4-10.2) L 10/25/20 06:06 Phosphorus 3.00 mg/dL (2.5-4.5) 10/24/20 07:47 Total Bilirubin 0.50 mg/dL (0.1-1.2) 10/22/20 16:24 AST 34 units/L (5-40) 10/22/20 16:24 ALT 40 units/L (7-56) 10/22/20 16:24 Alkaline Phosphatase 91 units/L (35-129) 10/22/20 16:24 Troponin T 0.130 ng/mL (0.00-0.029) H* 10/22/20 19:24 NT-Pro-B Natriuret Pep 1005 pg/mL (0-900) H 10/22/20 16:24 Total Protein 7.6 g/dL (6.3-8.2) 10/22/20 16:24 Albumin 3.6 g/dL (3.9-5) L 10/22/20 16:24 Albumin/Globulin Ratio 0.9 % 10/22/20 16:24 Urine Color Yellow (Yellow) 10/22/20 21:20 Urine Turbidity Clear (Clear) 10/22/20 21:20 Urine pH 6.0 (5.0-7.0) 10/22/20 21:20 Ur Specific [place] 1.009 (1.003-1.030) 10/22/20 21:20 Urine Protein <15 mg/dl mg/dL (Negative) 10/22/20 21:20 Urine Glucose (UA) Neg mg/dL (Negative) 10/22/20 21:20 Urine Ketones Neg mg/dL (Negative) 10/22/20 21:20 Urine Blood Mod (Negative) 10/22/20 21:20 Urine Nitrite Neg (Negative) 10/22/20 21:20 Urine Bilirubin Neg (Negative) 10/22/20 21:20 Urine Urobilinogen < 2.0 mg/dL (<2.0) 10/22/20 21:20 Ur Leukocyte Esterase Mod (Negative) 10/22/20 21:20 Urine WBC (Auto) 9.0 /HPF (0.0-6.0) H 10/22/20 21:20 Urine RBC (Auto) 2.0 /HPF (0.0-6.0) 10/22/20 21:20 Urine Creatinine 68.3 mg/dL (0.1-20.0) H 10/23/20 12:08 Urine Creatinine 68.4 mg/dL (0.1-20.0) H 10/23/20 12:08 Protein/Creatinin Ratio 2.88 10/23/20 12:08 Urine Sodium 60 mmol/L 10/23/20 12:08 Urine Total Protein 197 mg/dL (5-11.8) H 10/23/20 12:08 Microbiology: Microbiology 10/22/20 20:50 Peripheral/Venous Blood Culture - Preliminary NO GROWTH AFTER 48 HOURS 10/22/20 20:40 Peripheral/Venous Blood Culture - Preliminary NO GROWTH AFTER 48 HOURS Geiger/IV: Voiding Method Indwelling Catheter Active Medications - Current Medications Current Medications: Generic Name Dose Route Start Last Admin Trade Name Freq PRN Reason Stop Dose Admin Acetaminophen 650 mg 10/22/20 22:08 10/23/20 23:23 Acetaminophen 325 Mg Tab PO 650 mg Q4H PRN Administration Pain MILD(1-3)/Fever >100.5/PHAM Aspirin 81 mg 10/23/20 10:00 10/24/20 12:03 Aspirin Ec 81 Mg Tab PO 81 mg QDAY GEOVANNI Administration Atorvastatin Calcium 80 mg 10/23/20 22:00 10/24/20 21:34 Atorvastatin 40 Mg Tab PO 80 mg QHS GEOVANNI Administration Clopidogrel Bisulfate 75 mg 10/23/20 12:00 10/24/20 12:05 Clopidogrel 75 Mg Tab PO 75 mg QDAY GEOVANNI Administration Heparin Sodium (Porcine) 5,000 unit 10/23/20 06:00 10/25/20 05:54 Heparin 5,000 Unit/1 Ml Vial SUB-Q 5,000 unit Q8HR GEOVANNI Administration Sodium Chloride 1,000 mls @ 75 mls/hr 10/22/20 22:15 10/24/20 18:25 Nacl 0.9% 1000 Ml IV 75 mls/hr DIRECT GEOVANNI Administration Isosorbide Mononitrate 30 mg 10/23/20 10:00 10/24/20 12:04 Isosorbide Mononitrate Er 30 Mg Tab PO 30 mg QDAY GEOVANNI Administration Magnesium Hydroxide 30 ml 10/22/20 22:08 Magnesium Hydroxide (Mom) Oral Liqd Udc PO Q4H PRN Constipation Melatonin 5 mg 10/23/20 03:06 Melatonin 5 Mg Tab PO QHS PRN Sleep Metoprolol Tartrate 50 mg 10/23/20 04:00 10/24/20 21:35 Metoprolol Tartrate 50 Mg Tab PO 50 mg Q8HR GEOVANNI Administration Morphine Sulfate 2 mg 10/22/20 22:08 10/24/20 11:57 Morphine 2 Mg/1 Ml Inj IV 2 mg Q4H PRN Administration Pain, Moderate (4-6) Ondansetron HCl 4 mg 10/22/20 22:08 Ondansetron 4 Mg/2 Ml Inj IV Q8H PRN Nausea And Vomiting Sodium Chloride 10 ml 10/23/20 10:00 10/24/20 21:35 Sodium Chloride 0.9% 10 Ml Flush Syringe IV 10 ml BID GEOVANNI Administration Sodium Chloride 10 ml 10/22/20 22:08 Sodium Chloride 0.9% 10 Ml Flush Syringe IV PRN PRN LINE FLUSH Tamsulosin HCl 0.4 mg 10/24/20 14:00 10/24/20 14:31 Tamsulosin 0.4 Mg Cap PO Not Given DAILY GEOVANNI
--- NOTE | 2020-10-25 08:05 | Progress Note ---
Assessment and Plan Right apical atelectasis Acute renal failure Lung CA. STEMI Ventricular fibrillation Peripheral vascular disease Tobacco abuse Cr is stable will repeat bladder scan today for urinary retention, on Tamsulosin will d/c IVF renally dose meds strict I&O daily weight Pa Sanchez MD [phone] Subjective Date of service: 10/25/20 Principal diagnosis: VIRGILIO Interval history: required straight cath for urinary retention last night Objective - Vital Signs Vital signs: Vital Signs - 12hr 10/24/20 10/24/20 10/24/20 20:28 22:00 23:38 Temperature 97.9 F Pulse Rate 75 76 Pulse Rate [ 75 Apical] Pulse Rate [ 75 From Monitor] Respiratory 17 17 Rate Blood Pressure 122/61 O2 Sat by Pulse 97 97 Oximetry 10/25/20 10/25/20 04:13 06:00 Temperature 98.1 F Pulse Rate 77 74 Pulse Rate [ Apical] Pulse Rate [ From Monitor] Respiratory 17 Rate Blood Pressure 105/68 O2 Sat by Pulse 98 Oximetry - General Appearance General appearance: well-developed, well-nourished, appears stated age EENT: ATNC, PERRL, mucous membranes moist Neck: no JVD, no carotid bruit Respiratory: Present: Clear to Ascultation. Absent: Rales, Ronchi Cardiology: regular, S1S2 Gastrointestinal: normoactive bowel sounds, no tenderness, no distended, no masses Integumentary: no rash, warm and dry Neurologic: no focal deficit, no asterixis, alert and oriented x3 Musculoskeletal: other (no edema in BLE) Psychiatric: mood/affect appropriate, cooperative - Lab 10/25/20 06:06 10/25/20 06:06 Most recent lab results Calcium 7.9 mg/dL (8.4-10.2) L 10/25/20 06:06 Phosphorus 3.00 mg/dL (2.5-4.5) 10/24/20 07:47 Urine Creatinine 68.3 mg/dL (0.1-20.0) H 10/23/20 12:08 Urine Creatinine 68.4 mg/dL (0.1-20.0) H 10/23/20 12:08 Urine Sodium 60 mmol/L 10/23/20 12:08 Urine Total Protein 197 mg/dL (5-11.8) H 10/23/20 12:08 Medications & Allergies - Medications Allergies/Adverse Reactions: Allergies No Known Allergies Allergy (Verified 10/22/20 15:47) Home Medications: Home Medications Medication Instructions Recorded Confirmed Last Taken Type Aspirin EC [Halfprin EC] 81 mg PO QDAY #30 tablet. 10/20/20 Unknown Rx AtorvaSTATin [Lipitor] 80 mg PO QHS #30 tablet 10/20/20 Unknown Rx Clopidogrel [Plavix] 75 mg PO QHS #30 tablet 10/20/20 Unknown Rx ISOSORBIDE MONOnitrate [Imdur ER] 30 mg PO QDAY #30 tablet 10/20/20 Unknown Rx Melatonin [Melatonin 5MG TAB] 5 mg PO QHS PRN #30 tablet 10/20/20 Unknown Rx Metoprolol [Lopressor TAB] 50 mg PO Q8H #90 tablet 10/20/20 Unknown Rx Tamsulosin [Flomax] 0.4 mg PO QDAY #30 cap 10/24/20 Unknown Rx levoFLOXacin [Levaquin TAB] 500 mg PO QDAY #3 tablet 10/24/20 Unknown Rx Active Medications: Generic Name Dose Route Start Last Admin Trade Name Freq PRN Reason Stop Dose Admin Acetaminophen 650 mg 10/22/20 22:08 10/23/20 23:23 Acetaminophen 325 Mg Tab PO 650 mg Q4H PRN Administration Pain MILD(1-3)/Fever >100.5/PHAM Aspirin 81 mg 10/23/20 10:00 10/24/20 12:03 Aspirin Ec 81 Mg Tab PO 81 mg QDAY GEOVANNI Administration Atorvastatin Calcium 80 mg 10/23/20 22:00 10/24/20 21:34 Atorvastatin 40 Mg Tab PO 80 mg QHS GEOVANNI Administration Clopidogrel Bisulfate 75 mg 10/23/20 12:00 10/24/20 12:05 Clopidogrel 75 Mg Tab PO 75 mg QDAY GEOVANNI Administration Heparin Sodium (Porcine) 5,000 unit 10/23/20 06:00 10/25/20 05:54 Heparin 5,000 Unit/1 Ml Vial SUB-Q 5,000 unit Q8HR GEOVANNI Administration Isosorbide Mononitrate 30 mg 10/23/20 10:00 10/24/20 12:04 Isosorbide Mononitrate Er 30 Mg Tab PO 30 mg QDAY GEOVANNI Administration Magnesium Hydroxide 30 ml 10/22/20 22:08 Magnesium Hydroxide (Mom) Oral Liqd Udc PO Q4H PRN Constipation Melatonin 5 mg 10/23/20 03:06 Melatonin 5 Mg Tab PO QHS PRN Sleep Metoprolol Tartrate 50 mg 10/23/20 04:00 10/24/20 21:35 Metoprolol Tartrate 50 Mg Tab PO 50 mg Q8HR GEOVANNI Administration Morphine Sulfate 2 mg 10/22/20 22:08 10/24/20 11:57 Morphine 2 Mg/1 Ml Inj IV 2 mg Q4H PRN Administration Pain, Moderate (4-6) Ondansetron HCl 4 mg 10/22/20 22:08 Ondansetron 4 Mg/2 Ml Inj IV Q8H PRN Nausea And Vomiting Sodium Chloride 10 ml 10/23/20 10:00 10/24/20 21:35 Sodium Chloride 0.9% 10 Ml Flush Syringe IV 10 ml BID GEOVANNI Administration Sodium Chloride 10 ml 10/22/20 22:08 Sodium Chloride 0.9% 10 Ml Flush Syringe IV PRN PRN LINE FLUSH Tamsulosin HCl 0.4 mg 10/24/20 14:00 10/24/20 14:31 Tamsulosin 0.4 Mg Cap PO Not Given DAILY GEOVANNI
--- NOTE | 2020-10-25 08:52 | Consultation ---
History of Present Illness - Reason for Consult Consult date: 10/25/20 - History of Present Illness Patient is 71 years old male with history of hypertension and recent STEMI. Patient was discharged 1 week ago for anterior inferior STEMI and stent placement. Patient presented to the ER today complaining of generalized weakness, mild shortness of breath and left flank pain and increased urinary frequency. Patient stated that he does not have any appetite to eat. Patient denied any fever or chills. No cough. Patient was discharged yesterday but he for failed voiding trial. Bladder scan was done and showed 1000 mL of urine, straight catheter times. Pt. has a catheter. VIRGILIO resolved. CT showed mild bilateral hydronephrosis, and mild prostatic enlargement Cards--- Dr. Mccoy----on blood thinner abd soft---henderson draining maddie urine A/P retention bph home with henderson home on flomax outpt urodynamics Past History Past Medical History: CAD, hypertension, hyperlipidemia Past Surgical History: Other (Recent cardiac Cath.) Social history: no significant social history Family history: no significant family history Medications and Allergies Allergies Allergy/AdvReac Type Severity Reaction Status Date / Time No Known Allergies Allergy Verified 10/22/20 15:47 Home Medications Medication Instructions Recorded Confirmed Last Taken Type Aspirin EC [Halfprin EC] 81 mg PO QDAY #30 tablet. 10/20/20 Unknown Rx AtorvaSTATin [Lipitor] 80 mg PO QHS #30 tablet 10/20/20 Unknown Rx Clopidogrel [Plavix] 75 mg PO QHS #30 tablet 10/20/20 Unknown Rx ISOSORBIDE MONOnitrate [Imdur ER] 30 mg PO QDAY #30 tablet 10/20/20 Unknown Rx Melatonin [Melatonin 5MG TAB] 5 mg PO QHS PRN #30 tablet 10/20/20 Unknown Rx Metoprolol [Lopressor TAB] 50 mg PO Q8H #90 tablet 10/20/20 Unknown Rx Tamsulosin [Flomax] 0.4 mg PO QDAY #30 cap 10/24/20 Unknown Rx levoFLOXacin [Levaquin TAB] 500 mg PO QDAY #3 tablet 10/24/20 Unknown Rx Active Meds: Active Medications Acetaminophen (Acetaminophen 325 Mg Tab) 650 mg PO Q4H PRN PRN Reason: Pain MILD(1-3)/Fever >100.5/PHAM Last Admin: 10/23/20 23:23 Dose: 650 mg Documented by: Aspirin (Aspirin Ec 81 Mg Tab) 81 mg PO QDAY [facility] Last Admin: 10/24/20 12:03 Dose: 81 mg Documented by: Atorvastatin Calcium (Atorvastatin 40 Mg Tab) 80 mg PO QHS [facility] Last Admin: 10/24/20 21:34 Dose: 80 mg Documented by: Clopidogrel Bisulfate (Clopidogrel 75 Mg Tab) 75 mg PO QDAY [facility] Last Admin: 10/24/20 12:05 Dose: 75 mg Documented by: Heparin Sodium (Porcine) (Heparin 5,000 Unit/1 Ml Vial) 5,000 unit SUB-Q Q8HR [facility] Last Admin: 10/25/20 05:54 Dose: 5,000 unit Documented by: Isosorbide Mononitrate (Isosorbide Mononitrate Er 30 Mg Tab) 30 mg PO QDAY [facility] Last Admin: 10/24/20 12:04 Dose: 30 mg Documented by: Magnesium Hydroxide (Magnesium Hydroxide (Mom) Oral Liqd Udc) 30 ml PO Q4H PRN PRN Reason: Constipation Melatonin (Melatonin 5 Mg Tab) 5 mg PO QHS PRN PRN Reason: Sleep Metoprolol Tartrate (Metoprolol Tartrate 50 Mg Tab) 50 mg PO Q8HR [facility] Last Admin: 10/24/20 21:35 Dose: 50 mg Documented by: Morphine Sulfate (Morphine 2 Mg/1 Ml Inj) 2 mg IV Q4H PRN PRN Reason: Pain, Moderate (4-6) Last Admin: 10/24/20 11:57 Dose: 2 mg Documented by: Ondansetron HCl (Ondansetron 4 Mg/2 Ml Inj) 4 mg IV Q8H PRN PRN Reason: Nausea And Vomiting Sodium Chloride (Sodium Chloride 0.9% 10 Ml Flush Syringe) 10 ml IV BID [facility] Last Admin: 10/24/20 21:35 Dose: 10 ml Documented by: Sodium Chloride (Sodium Chloride 0.9% 10 Ml Flush Syringe) 10 ml IV PRN PRN PRN Reason: LINE FLUSH Tamsulosin HCl (Tamsulosin 0.4 Mg Cap) 0.4 mg PO DAILY [facility] Last Admin: 10/24/20 14:31 Dose: Not Given Documented by: Exam - Constitutional Vitals: Temp Pulse Resp BP Pulse Ox 97.9 F 75 18 107/69 97 10/25/20 08:05 10/25/20 08:05 10/25/20 08:05 10/25/20 08:05 10/25/20 08:05 Results - Labs CBC & Chem 7: 10/25/20 06:06 10/25/20 06:06 Labs: Abnormal lab results 10/24/20 10/24/20 10/25/20 Range/Units 07:47 07:47 06:06 RBC 3.55 L 3.32 L (3.65-5.03) M/mm3 Hgb 8.8 L 8.3 L (11.8-15.2) gm/dl Hct 26.7 L 24.7 L (35.5-45.6) % MCV 75 L 74 L (84-94) fl MCH 25 L 25 L (28-32) pg RDW 15.3 H (13.2-15.2) % Plt Count 457 H (140-440) K/mm3 Monocytes % (Manual) 8.0 H (0.0-7.3) % Nucleated RBC % 1.0 H (0.0-0.9) % Sodium 135 L (137-145) mmol/L Carbon Dioxide (22-30) mmol/L BUN 24 H (9-20) mg/dL Calcium (8.4-10.2) mg/dL 10/25/20 Range/Units 06:06 RBC (3.65-5.03) M/mm3 Hgb (11.8-15.2) gm/dl Hct (35.5-45.6) % MCV (84-94) fl MCH (28-32) pg RDW (13.2-15.2) % Plt Count (140-440) K/mm3 Monocytes % (Manual) (0.0-7.3) % Nucleated RBC % (0.0-0.9) % Sodium 130 L (137-145) mmol/L Carbon Dioxide 19 L (22-30) mmol/L BUN (9-20) mg/dL Calcium 7.9 L (8.4-10.2) mg/dL
[2020-10-25] MEDS: TAMSULOSIN 0.4 MG CAP PO SCH (09:44)
[2020-10-25] MEDS: CLOPIDOGREL 75 MG TAB PO SCH (09:44)
[2020-10-25] MEDS: ASPIRIN EC 81 MG TAB PO SCH (09:44)
--- NOTE | 2020-10-25 11:08 | Progress Note ---
Assessment and Plan - Patient Problems (1) Coronary artery disease Current Visit: Yes Status: Acute Plan to address problem: status post primary intervention to the right coronary artery 1 week ago for acute inferior STEMI. Continue medical therapy for coronary artery disease. The secondary, severe stenosis of the distal left main that is planned for staged percutaneous intervention as an outpatient. Otherwise, conservative cardiac management. Subjective Date of service: 10/25/20 Principal diagnosis: VIRGILIO Interval history: Patient denies chest pain, denies palpitations, and denies SOB. No cardiac events. Objective Vital Signs Temp Pulse Pulse Pulse Resp BP Pulse Ox 10/25/20 09:44 75 10/25/20 08:05 97.9 F 75 18 107/69 97 10/25/20 06:00 74 10/25/20 04:13 98.1 F 77 17 105/68 98 10/24/20 23:38 97.9 F 76 17 122/61 97 10/24/20 22:00 75 10/24/20 20:28 75 75 17 97 10/24/20 19:47 97.9 F 75 18 105/63 99 10/24/20 15:54 97.8 F 64 20 120/74 99 10/24/20 14:00 73 10/24/20 12:10 97.9 F 68 20 109/74 98 10/24/20 12:04 85 - Physical Examination General: No Apparent Distress HEENT: Positive: PERRL Neck: Positive: trachea midline Cardiac: Positive: Reg Rate and Rhythm Lungs: Positive: Decreased Breath Sounds Neuro: Positive: Grossly Intact Abdomen: Positive: Soft Extremities: Absent: edema - Labs and Meds CBC 10/25/20 Range/Units 06:06 WBC 10.4 (4.5-11.0) K/mm3 RBC 3.32 L (3.65-5.03) M/mm3 Hgb 8.3 L (11.8-15.2) gm/dl Hct 24.7 L (35.5-45.6) % Plt Count 392 (140-440) K/mm3 Comprehensive Metabolic Panel 10/25/20 Range/Units 06:06 Sodium 130 L (137-145) mmol/L Potassium 4.4 (3.6-5.0) mmol/L Chloride 99.7 (98-107) mmol/L Carbon Dioxide 19 L (22-30) mmol/L BUN 19 (9-20) mg/dL Creatinine 1.2 (0.8-1.3) mg/dL Glucose 97 (75-100) mg/dL Calcium 7.9 L (8.4-10.2) mg/dL
[2020-10-25 12:21] LABS: Total Cells Counted 100
[2020-10-25 12:23] LABS: Hypochromasia 1+; Platelet Estimate Consistent w Auto; RBC Morphology Normal
[2020-10-25] MEDS: METOPROLOL TARTRATE 50 MG TAB PO SCH (17:01)
[2020-10-25 17:02] VITALS: BP 102/50
--- NOTE | 2020-10-26 10:55 | Electrocardiograph Report ---
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
== END 2020-10-25 18:35 | disposition home health service (06) | DRG 682 ==
LOC: ED 15:44 → 4A 21:48
PROVIDERS: ADMIT Internal Medicine Geriatric Medicine; ATTEND Internal Medicine
DX: N17.9 Acute kidney failure, unspecified (principal); J18.9 Pneumonia, unspecified organism; I49.01 Ventricular fibrillation; I21.3 ST elevation (STEMI) myocardial infarction of unspecified site; J98.11 Atelectasis; N39.0 Urinary tract infection, site not specified; I47.1 Supraventricular tachycardia; N40.1 Benign prostatic hyperplasia with lower urinary tract symptoms; N13.30 Unspecified hydronephrosis; I25.10 Atherosclerotic heart disease of native coronary artery without angina pectoris; I10 Essential (primary) hypertension; R33.8 Other retention of urine; F17.200 Nicotine dependence, unspecified, uncomplicated; E11.51 Type 2 diabetes mellitus with diabetic peripheral angiopathy without gangrene; Z95.5 Presence of coronary angioplasty implant and graft; Z79.82 Long term (current) use of aspirin; Z79.899 Other long term (current) drug therapy; Z85.118 Personal history of other malignant neoplasm of bronchus and lung; Z71.6 Tobacco abuse counseling
CPT/HCPCS: 36415; 71046; 71250; 74176; 76770; 80048; 80053; 81001; 82570; 83880; 84100; 84156; 84300; 84484; 85007; 85025; 85610; 85730; 87040; 87086; 93005; 96365; G0378; A9270-GY; J1644; J1956; J2270; J7030

== ENCOUNTER 2021-01-15 22:33 | Emergency (ER) | payer MEDICARE, OTHER ==
[2021-01-15 23:56] LABS: Bacteria,Urine 2+ /HPF (Negative); Bilirubin,Urine NEG (Negative); Blood,Urine SM (Negative); Color,Urine Yellow (Yellow); Protein,Urine <15 mg/dL mg/dL (Negative); Urobilinogen,Urine < 2.0 mg/dL (<2.0)
[2021-01-16 00:01] LABS: WBC,Urine > 182.0 /HPF (0.0-6.0)
[2021-01-16] MEDS ORDERED: ACETAMINOPHEN 325 MG TAB PO ONE (00:39)
[2021-01-16] MEDS ORDERED: levoFLOXacin 500 MG TAB PO ONE (03:01)
--- NOTE | 2021-01-16 03:04 | Emergency Department Report ---
HPI - General Chief Complaint: Urogenital-Male Time Seen by Provider: 01/16/21 02:47 - HPI HPI: This is a 70-year-old -[place] male presents to the emergency department with a complaint of urinary retention secondary to a clogged Burgos catheter. Patient says that the Burgos catheter was placed about 1 month ago secondary to urinary retention at that time. He has a history of hypertension. He follows with Dr. Young for urology. He denies any fever, nausea, vomiting, back pain, discharge, chest pain, shortness of breath. He has not taken anything for symptoms prior to presentation. Initially, at triage, the patient's lower abdominal and/or suprapubic pain was 10 out of 10 in intensity. Now that the Burgos catheter has been replaced he is feeling much better and says the pain has resolved. ED Past Medical Hx - Past Medical History Hx Hypertension: Yes Hx Congestive Heart Failure: No Hx Diabetes: No Hx Asthma: No Hx COPD: No Hx HIV: No - Surgical History Additional Surgical History: Unknown - Social History Smoking Status: Never Smoker Substance Use Type: None - Medications Home Medications: Home Medications Medication Instructions Recorded Confirmed Last Taken Type Aspirin EC [Halfprin EC] 81 mg PO QDAY #30 tablet. 10/20/20 10/25/20 Unknown Rx AtorvaSTATin [Lipitor] 80 mg PO QHS #30 tablet 10/20/20 10/25/20 Unknown Rx Clopidogrel [Plavix] 75 mg PO QHS #30 tablet 10/20/20 10/25/20 Unknown Rx ISOSORBIDE MONOnitrate [Imdur ER] 30 mg PO QDAY #30 tablet 10/20/20 10/25/20 Unknown Rx Melatonin [Melatonin 5MG TAB] 5 mg PO QHS PRN #30 tablet 10/20/20 10/25/20 Unknown Rx Metoprolol [Lopressor TAB] 50 mg PO Q8H #90 tablet 10/20/20 10/25/20 Unknown Rx Tamsulosin [Flomax] 0.4 mg PO QDAY #30 cap 10/24/20 Unknown Rx levoFLOXacin [Levaquin TAB] 500 mg PO QDAY #3 tablet 10/24/20 Unknown Rx Ciprofloxacin HCl 500 mg PO BID #14 tablet 01/16/21 Unknown Rx ED Review of Systems ROS: Stated complaint: BURGOS CLOGGED Other details as noted in HPI Comment: All other systems reviewed and negative Constitutional: denies: chills, fever Eyes: denies: eye pain, vision change ENT: denies: ear pain, throat pain Respiratory: denies: cough, shortness of breath Cardiovascular: denies: chest pain, palpitations Gastrointestinal: abdominal pain. denies: vomiting Genitourinary: other (Urinary retention). denies: discharge Musculoskeletal: denies: back pain, arthralgia Skin: denies: rash, lesions Neurological: denies: headache, weakness Physical Exam - Physical Exam Vital Signs: Vital Signs 01/15/21 22:47 Temperature 98.2 F Pulse Rate 115 H Respiratory 18 Rate Blood Pressure 186/87 O2 Sat by Pulse 98 Oximetry Physical Exam: GENERAL: The patient is well-developed well-nourished. HENT: Normocephalic. Atraumatic. Patient has moist mucous membranes. EYES: Extraocular motions are intact NECK: Supple. Trachea is midline. CHEST/LUNGS: Clear to auscultation. There is no respiratory distress noted. HEART/CARDIOVASCULAR: Regular. There is no tachycardia. There is no murmur. ABDOMEN: Abdomen is soft, nontender. Patient has normal bowel sounds. SKIN: Skin is warm and dry. NEURO: The patient is awake, alert, and oriented. The patient is cooperative normal speech. MUSCULOSKELETAL: There is no tenderness or deformity. ED Course Vital Signs 01/15/21 22:47 Temperature 98.2 F Pulse Rate 115 H Respiratory 18 Rate Blood Pressure 186/87 O2 Sat by Pulse 98 Oximetry ED Medical Decision Making - Lab Data Lab Results 01/15/21 Range/Units 23:21 Urine Color Yellow (Yellow) Urine Turbidity Slightly-cloudy (Clear) Urine pH 6.0 (5.0-7.0) Ur Specific [place] 1.018 (1.003-1.030) Urine Protein <15 mg/dl (Negative) mg/dL Urine Glucose (UA) Neg (Negative) mg/dL Urine Ketones Neg (Negative) mg/dL Urine Blood Sm (Negative) Urine Nitrite Neg (Negative) Urine Bilirubin Neg (Negative) Urine Urobilinogen < 2.0 (<2.0) mg/dL Ur Leukocyte Esterase Lg (Negative) Urine WBC (Auto) > 182.0 H (0.0-6.0) /HPF Urine RBC (Auto) 17.0 (0.0-6.0) /HPF Urine Bacteria (Auto) 2+ (Negative) /HPF Urine Yeast (Budding) 2+ /HPF - Medical Decision Making This patient presents to the emergency department with a clogged Burgos catheter and therefore urinary retention. Patient appears uncomfortable through triage and the Burgos catheter was replaced. I saw the patient when he came back to room #40 after the Burgos was replaced. The patient put out about 1 L of urine. He now feels greatly improved. Patient's vital signs improved after he was able to void. Urinalysis shows a urinary tract infection. The patient has good outpatient follow-up with a urologist, Dr. Young. He has been placed on antibiotics. Critical Care Time: No Critical care attestation.: If time is entered above; I have spent that time in minutes in the direct care of this critically ill patient, excluding procedure time. ED Disposition Clinical Impression: Urinary retention Obstructed Burgos catheter Qualifiers: Encounter type: initial encounter Qualified Code(s): T83.091A - Other mechanical complication of indwelling urethral catheter, initial encounter UTI (urinary tract infection) Qualifiers: Urinary tract infection type: acute cystitis Hematuria presence: without hematuria Qualified Code(s): N30.00 - Acute cystitis without hematuria Disposition: TO HOME OR SELFCARE Is pt being admited?: No Condition: Stable Instructions: Indwelling Urinary Catheter Care, Adult, Urinary Tract Infection, Adult, Acute Urinary Retention, Male Additional Instructions: Please follow-up with your urologist in the next few days. Take all of your medications as prescribed. Return to the emergency department with any worsening of your symptoms, new or concerning symptoms not addressed during this current emergency department visit, or with any acute distress. Prescriptions: Ciprofloxacin HCl 500 mg PO BID #14 tablet Referrals: JESSICA YOUNG MD [Staff Physician] - 2-3 Days Time of Disposition: 03:03
[2021-01-16 03:39] VITALS: BP 151/78
== END 2021-01-16 04:00 | disposition home or self-care (01) ==
LOC: ED 22:33
DX: T83.098A Other mechanical complication of other urinary catheter, initial encounter (principal); N39.0 Urinary tract infection, site not specified; R33.9 Retention of urine, unspecified; I10 Essential (primary) hypertension; Z79.2 Long term (current) use of antibiotics; Z79.899 Other long term (current) drug therapy; Y92.89 Other specified places as the place of occurrence of the external cause
CPT/HCPCS: 51702; 81001

== ENCOUNTER 2021-05-03 09:59 | Emergency (ER) | payer MEDICARE ==
--- NOTE | 2021-05-03 10:42 | Emergency Department Report ---
ED General Adult HPI - General Chief complaint: Urogenital-Male Stated complaint: CATHETER CLOGGED PUI?: No Time Seen by Provider: 05/03/21 10:22 Source: patient, RN notes reviewed, old records reviewed Mode of arrival: Ambulatory Limitations: No Limitations - History of Present Illness Initial comments: The patient was evaluated in the emergency department for symptoms described in the history of present illness. He/she was evaluated in the context of the global COVID-19 pandemic, which necessitated consideration that the patient might be at risk for infection with the virus that causes COVID-19. Institutional protocols and algorithms that pertain to the evaluation of patients at risk for COVID-19 are in a state of rapid change based on information released by regulatory bodies including the CDC and federal and state organizations. These policies and algorithms were followed during the patient's care in the emergency department. Please note that these policies, procedures and recommendations changed on a rapid basis. The patient is a 71-year-old gentleman. He has a history of indwelling Geiger catheter, and chronic urinary retention. The patient presents to the ER today with a complaint of clogged Geiger catheter. He states his Geiger catheter was last changed out a few months ago. Besides his complaint of urinary retention, and associated suprapubic fullness, he has no other complaints. He gave verbal consent for his Geiger catheter to be changed, and this provider changed his Geiger catheter with sterile gloves, and typical sterile technique. A sixteen [place] Geiger catheter was inserted, under maximal sterile conditions, with immediate clear return of yellow urine, approximately 1 L. The patient was observed in the emergency room for approximately 1 hour after his Geiger catheter change. He endorsed complete resolution of symptoms, and is endorsing readiness for discharge. He states he will follow-up with his urologist at [place]. He is currently taking Flomax. His most recent set of urine cultures were negative. -: hour(s) Consistency: now resolved Improves with: other (Placement of Geiger catheter) Worsens with: none Associated Symptoms: denies other symptoms - Related Data Previous Rx's Medication Instructions Recorded Last Taken Type Aspirin EC [Halfprin EC] 81 mg PO QDAY #30 tablet. 10/20/20 Unknown Rx AtorvaSTATin [Lipitor] 80 mg PO QHS #30 tablet 10/20/20 Unknown Rx Clopidogrel [Plavix] 75 mg PO QHS #30 tablet 10/20/20 Unknown Rx ISOSORBIDE MONOnitrate [Imdur ER] 30 mg PO QDAY #30 tablet 10/20/20 Unknown Rx Melatonin [Melatonin 5MG TAB] 5 mg PO QHS PRN #30 tablet 10/20/20 Unknown Rx Metoprolol [Lopressor TAB] 50 mg PO Q8H #90 tablet 10/20/20 Unknown Rx Tamsulosin [Flomax] 0.4 mg PO QDAY #30 cap 10/24/20 Unknown Rx levoFLOXacin [Levaquin TAB] 500 mg PO QDAY #3 tablet 10/24/20 Unknown Rx Ciprofloxacin HCl 500 mg PO BID #14 tablet 01/16/21 Unknown Rx Allergies Allergy/AdvReac Type Severity Reaction Status Date / Time No Known Allergies Allergy Verified 10/22/20 15:47 ED Review of Systems ROS: Stated complaint: CATHETER CLOGGED Other details as noted in HPI Comment: All other systems reviewed and negative Gastrointestinal: abdominal pain (Suprapubic abdominal pain secondary to obstructed Geiger catheter) Genitourinary: other (Urinary retention) ED Past Medical Hx - Past Medical History Hx Hypertension: Yes Hx Congestive Heart Failure: No Hx Diabetes: No Hx Asthma: No Hx COPD: No Hx HIV: No - Surgical History Additional Surgical History: Unknown - Social History Smoking Status: Never Smoker Substance Use Type: None - Medications Home Medications: Home Medications Medication Instructions Recorded Confirmed Last Taken Type Aspirin EC [Halfprin EC] 81 mg PO QDAY #30 tablet. 10/20/20 10/25/20 Unknown Rx AtorvaSTATin [Lipitor] 80 mg PO QHS #30 tablet 10/20/20 10/25/20 Unknown Rx Clopidogrel [Plavix] 75 mg PO QHS #30 tablet 10/20/20 10/25/20 Unknown Rx ISOSORBIDE MONOnitrate [Imdur ER] 30 mg PO QDAY #30 tablet 10/20/20 10/25/20 Unknown Rx Melatonin [Melatonin 5MG TAB] 5 mg PO QHS PRN #30 tablet 10/20/20 10/25/20 Unknown Rx Metoprolol [Lopressor TAB] 50 mg PO Q8H #90 tablet 10/20/20 10/25/20 Unknown Rx Tamsulosin [Flomax] 0.4 mg PO QDAY #30 cap 10/24/20 Unknown Rx levoFLOXacin [Levaquin TAB] 500 mg PO QDAY #3 tablet 10/24/20 Unknown Rx Ciprofloxacin HCl 500 mg PO BID #14 tablet 01/16/21 Unknown Rx ED Physical Exam - General Limitations: No Limitations General appearance: alert, anxious, in distress - Head Head exam: Present: atraumatic, normocephalic - Eye Eye exam: Present: normal appearance, EOMI. Absent: nystagmus - ENT ENT exam: Present: normal exam, normal orophraynx, mucous membranes moist, normal external ear exam - Neck Neck exam: Present: normal inspection, full ROM. Absent: tenderness, meningismus - Respiratory Respiratory exam: Present: normal lung sounds bilaterally. Absent: respiratory distress, wheezes, rales, rhonchi, stridor, chest wall tenderness, accessory muscle use, decreased breath sounds, prolonged expiratory - Cardiovascular Cardiovascular Exam: Present: regular rate, normal rhythm, normal heart sounds. Absent: bradycardia, tachycardia, irregular rhythm, systolic murmur, diastolic murmur, rubs, gallop - GI/Abdominal GI/Abdominal exam: Present: soft, distended (Suprapubic distention. Suprapubic tenderness), normal bowel sounds. Absent: tenderness, guarding, rebound, rigid, pulsatile mass - Rectal Rectal exam: Present: deferred - exam: Present: normal inspection External exam: Present: normal external exam - Extremities Exam Extremities exam: Present: normal inspection, full ROM, other (Left lower extremity above-knee amputation. 2+ radial pulses bilaterally, 2+ femoral pulses bilaterally.) - Back Exam Back exam: Present: normal inspection. Absent: tenderness, CVA tenderness (R), CVA tenderness (L), paraspinal tenderness, vertebral tenderness - Neurological Exam Neurological exam: Present: alert, oriented X3, other (No facial droop. Tongue midline. Extraocular movements intact bilaterally. Facial sensation intact to light touch in V1, V2, V3 distribution bilaterally. 5 and a 5 strength in 4 extremities. Sensation intact to light touch in 4 extremities.). Absent: motor sensory deficit - Psychiatric Psychiatric exam: Present: anxious - Skin Skin exam: Present: warm, dry, intact, normal color. Absent: rash ED Course Vital Signs 05/03/21 10:07 Temperature 97.9 F Pulse Rate 80 Respiratory 16 Rate Blood Pressure 142/90 [Right] O2 Sat by Pulse 99 Oximetry - Catheter Insertion (Urinary) Indications: to alleviate urinary retention Does Patient Have: prosthetic heart valve (No), penile implant (No), artificial urethral sphincter (No) Prophylactic Antibiotics Given: No Bladder Scan/US before Catherization: No Estimated Amount of Urine (mls): 1,000 Preparation: Providone-Iodine Type of Catheter Inserted: Geiger Catheter [place] Size: 16 Catheter Balloon Size (mls): 10 Topical Anesthesia Used: No Results: successfully catherized-immediate flow Patient Tolerated Procedure: well, no complications Complications: none ED Medical Decision Making - Lab Data Vital Signs 05/03/21 10:07 Temperature 97.9 F Pulse Rate 80 Respiratory 16 Rate Blood Pressure 142/90 [Right] O2 Sat by Pulse 99 Oximetry - Medical Decision Making Differential diagnosis, including but not limited to: Encounter for Geiger catheter change Assessment and plan: 71-year-old gentleman, who is afebrile, with reassuring vital signs, who presents to the ER today with a complaint of request for Geiger catheter change. His Geiger catheter was changed with sterile procedure, and he endorsed immediate resolution of symptoms. He put out approximately 1 L of clear yellow urine, and at this time, is playing on his cellular phone, and in no acute distress, and endorsing readiness for discharge. He states he is otherwise in his usual state of health, and ready to go home. Return precautions are reviewed. Critical care attestation.: If time is entered above; I have spent that time in minutes in the direct care of this critically ill patient, excluding procedure time. ED Disposition Clinical Impression: Encounter for Geiger catheter replacement Disposition: HOME / SELF CARE / HOMELESS Is pt being admited?: No Does the pt Need Aspirin: No Condition: Stable Instructions: Indwelling Urinary Catheter Care, Adult Additional Instructions: Please continue current outpatient medications. Please follow-up with your primary care doctor or urologist for Geiger catheter care in the next 2 weeks. Please return to the emergency room right away with fever, chills, lethargy, irritability, projectile vomiting, change in mental status, confusion, inability to tolerate liquid feeds, blockage of Geiger catheter, or any new, worsened or different symptoms not present on the initial emergency room evaluation Referrals: JESSICA GROSS MD [Staff Physician] - 7-10 days [facility] [Provider Group] - 7-10 days
[2021-05-03 12:15] VITALS: BP 133/88
== END 2021-05-03 12:18 | disposition home or self-care (01) ==
LOC: ED 09:59
DX: Z46.6 Encounter for fitting and adjustment of urinary device (principal); I10 Essential (primary) hypertension
CPT/HCPCS: 51702; 99282